=== PATIENT | male | born 1945 | race Caucasian/White ===

== ENCOUNTER 2018-11-22 12:58 | Inpatient (IN) ==
[2018-11-22] MEDS ORDERED: NS 1,000 ML IV ONE (13:37)
--- NOTE | 2018-11-22 13:51 | PROVIDER DOCUMENTATION ---
HPI-General Adult - General Chief Complaint: General Adult Stated Complaint: DR AGUILAR REF TO BE ADMITTED THRU ER Time Seen by Provider: 11/22/18 13:26 Source: patient Allergies/Adverse Reactions: Patient Allergies Allergy/AdvReac Type Severity Reaction Status Date / Time No Known Allergies Allergy Verified 02/10/13 23:54 Home Medications: Home Medication List Medication Instructions Recorded Confirmed Last Taken Type Tramadol [Ultram] 50 mg PO BID PRN 02/10/13 02/10/13 02/10/13 History Amoxicillin 500 mg PO BID 11/22/18 11/22/18 Unknown History Clarithromycin [Biaxin Xl] 500 mg PO BID 11/22/18 11/22/18 Unknown History Hydrocodone/APAP 7.5 mg/325 mg 1 ea PO Q6H PRN PRN 11/22/18 11/22/18 Unknown History [[place]-7.5] Lansoprazole 30 mg PO BID 11/22/18 11/22/18 Unknown History Nicotine Patch [Nicoderm Patch] 21 mg TD DIRECTED 11/22/18 11/22/18 Unknown History Promethazine [Phenergan] 25 mg PO Q6H PRN PRN 11/22/18 11/22/18 Unknown History - History of Present Illness -Gen Adult Nature of Presenting Problems: Patient is a 73yo M who presents to the ED after being referred from Dr. Aguilar's office. Per Dr. Aguilar, patient has Diffuse Lymphoma and is in ARF, dehydrated, dizzy, and hypotensive. Per patient, he reports he has been dizzy for 1 month, however it has gotten worse the past few days. Patient reports he received 2 units of blood last week. States he had an endoscopy on 11/09/18 and was diagnosed with H. Pylori ulcers and given Amoxicillin, Clarithromycin, and Lansoprazole. Also c/o "black stools" and nausea. Patient reports he was diagnosed with Lymphoma 4 months ago. Denies fever/chills, SOB, or CP. Location of Pain/Injury: reports: none Pain Radiation: reports: no radiation Quality of Pain: reports: none Modifying Factors: improves with: analgesics Associated Symptoms: reports: dizziness, loss of appetite, nausea, weakness. denies: chest pain, cough, fever/chills, shortness of breath Similar Symptoms Previously?: No Recently seen or treated by another doctor?: Yes (Referred from Dr. Aguilar's office) Review of Systems - Adult - REVIEW OF SYSTEMS - ADULT Constitutional: denies: chills, fever Eyes: reports: no symptoms reported Ears, Nose, Mouth & Throat: reports: no symptoms reported Cardiovascular: reports: irregular heart rate. denies: chest pain, palpitations Respiratory: denies: cough, excessive sputum production, pleurisy, shortness of breath, wheezing Gastrointestinal: reports: see HPI, nausea, poor appetite, other ("Black stools") Genitourinary: reports: no symptoms reported Musculoskeletal: reports: no symptoms reported Integumentary: reports: no symptoms reported Neurological: reports: dizziness/vertigo Psychiatric: reports: no symptoms reported Endocrine: reports: no symptoms reported Hematologic/Lymphatic: reports: see HPI, transfusions Allergic/Immunologic: reports: no symptoms reported All Other Systems: Reviewed and Negative Past History - Adult - PAST MEDICAL HISTORY-ADULT Review of Records: reports: Nursing Assessment Review, Medications Reviewed, Social history reviewed & non-contributory. Major Childhood Illnesses: reports: denies history - IMMUNIZATION STATUS Childhood Immunizations: See Nurse Assessment Flu Vaccine: See Nurse Assessment - FAMILY HISTORY Family History: reviewed, not pertinent - SOCIAL HISTORY Smoking: quit less than 1 year Physical Exam-General - PHYSICAL EXAM-ADULT Initial Vital Signs Reviewed: Yes - CONSTITUTIONAL General Appearance: appears well, alert, mild distress - HEAD, EARS, NOSE, MOUTH & THROAT HENMT: normocephalic/atraumatic, moist mucous membranes - NECK Neck: non-tender, full range of motion, supple - RESPIRATORY Respiratory: chest non-tender, lungs clear, normal breath sounds, no pleuratic chest pain, no respiratory distress, no accessory muscle use - CARDIOVASCULAR Cardiovascular: no gallop, no murmur, irregularly irregular - GASTROINTESTINAL (ABDOMEN) Abdominal Exam: normal bowel sounds, non tender, soft - SKIN Integumentary: normal color, normal turgor, warm/dry - NEUROLOGIC Neurologic: grossly normal - PSYCHIATRIC Psych/Mental Status: normal mood/affect, normal thought content, normal thought process, oriented x 3 Progress - PLAN OF CARE/RESULTS Progress/Plan/Lab Results: Vital Signs - 8 hr 11/22/18 13:03 Temperature 96.9 F L Pulse Rate 63 Respiratory Rate 18 Blood Pressure 114/67 O2 Sat by Pulse Oximetry 96 Orders Category Date Time Status Saline Loc NOW Care 11/22/18 13:35 Active CBC WITH ELECTRONIC DIFF [HEME] Stat Lab 11/22/18 13:35 Uncollected COMPREHENSIVE METABOLIC PANEL [CHEM] Stat Lab 11/22/18 13:35 Uncollected PROTIME WITH INR [COAG] Stat Lab 11/22/18 13:36 Uncollected PTT [COAG] Stat Lab 11/22/18 13:36 Uncollected URINALYSIS W/POSS RFLX CULT [URINALYSIS] Stat Lab 11/22/18 13:36 Uncollected 0.9% Sodium Chloride Inj [Ns] 1,000 ml Med 11/22/18 13:37 Active IV 999 mls/hr EKG [EKG] Stat Ther 11/22/18 13:42 Ordered Result Diagrams: 11/22/18 13:50 11/22/18 13:50 - EKG 1 Time of EKG reading by physician:: 14:35 EKG Read and Signed by:: Guillermo Beckwith EKG Interpretation (*Must complete 3 of following elements*): Abnormal Rate: 90 Rhythm: Undetermined rhythm [place]: normal QRS: RBB DE Interval: normal ST Wave: normal - CONSULTS/PCP/HOSPITALIST Notification #1 *Consult/PCP/Hospitalist*: Dr. Evie ESPINOSA ([facility]) Time Discussed: 15:29 Reason/Comments: ARF, Dizziness, Anemia, Dehydration Consult Disposition: Admit Departure - Departure Date of Disposition Decision: 11/22/18 Time of Disposition Decision: 15:29 DIAGNOSIS: Dizziness Acute renal failure Qualifiers: Acute renal failure type: unspecified Qualified Code(s): N17.9 - Acute kidney failure, unspecified Anemia Qualifiers: Anemia type: unspecified type Qualified Code(s): D64.9 - Anemia, unspecified Disposition: ADMITTED INPATIENT 09 Certified Medical Emergency: Emergent Condition: Fair Referrals and Follow-Ups: Kerry Yi [Primary Care Provider] - () Wili Aguilar MD [ACTIVE STAFF PHYSICIAN] - - Critical Care Note This patient required my direct & personal management of CC.: No Attestation - Physician/ KATHY Attestation Patient care was provided by Advanced Practice Provider:: Yes Advanced Practice Provider:: Emelia Durand Advanced Practice Provider documentation review:: The Mid-level provider documentation, treatment plan and medical decision making was reviewed by the physician who agrees with all treatment and medical decision making by the MLP. The physician spent face to face time with patient:: No Advanced Practice Provider documentation review:: Supervising physician onsite and consulted in the evaluation and care of this patient. The physician did not have a face to face encounter with the patient.
[2018-11-22 14:11] LABS: BASO# 0.04 X1000 (0.0-0.2); BASO% 0.5 % (0.0-0.8); EOS# 0.13 X1000 (0.0-0.7); EOS% 1.6 % (0.0-10.0); HEMATOCRIT 32.2 % (42.0-52.0); HEMOGLOBIN 10.5 g/dL (14.0-18.0); LYMPH# 2.87 X1000 (1.2-3.4); LYMPH% 35.7 % (20.5-51.1); MCHC 32.6 g/dL (33-37); MCV 85.9 FL (81-99); MONO# 0.54 X1000 (0.11-0.59); MONO% 6.7 % (1.7-9.3); MPV 11.9 FL (7.4-10.4); NEUT# 4.47 X1000 (1.4-6.5); NEUT% 55.5 % (42.2-75.2); PLT 123 X1000 (130-400); RBC 3.75 XMIL (4.7-6.1); RDW 16.5 % (11.5-14.5); WBC 8.05 X1000 (4.8-10.8)
[2018-11-22 14:15] LABS: PTT 29.7 Seconds (22.3-41.8)
[2018-11-22 14:45] LABS: ALB/GLOB RATIO 1.1; ALBUMIN 3.4 g/dL (3.5-5.0); CREATININE 3.5 mg/dL (0.7-1.2); POTASSIUM 3.7 mmol/L (3.5-5.1); TOTAL BILIRUBIN 0.6 mg/dL (0.20-1.00); TOTAL PROTEIN 6.4 g/dL (6.3-8.3)
--- NOTE | 2018-11-22 15:20 | EKG Report ---
Test Performed on : 11/22/2018 2:30:00 PM Test Reason : shortness of breath Blood Pressure : / mmHG Vent. Rate : 090 BPM Atrial Rate : 014 BPM P-R Int : 000 ms QRS Dur : 148 ms QT Int : 458 ms P-R-T Axes : 071 004 003 degrees QTc Int : 560 ms Undetermined rhythm Right bundle branch block Abnormal ECG No previous ECGs available Unconfirmed Result
--- NOTE | 2018-11-22 16:40 | HISTORY AND PHYSICAL ---
HISTORY OF PRESENT ILLNESS: Apparently, recently diagnosed with lymphoma involving his stomach. He has been told he had a stomach ulcer and stomach bleeding. He reported the last month he has had 4 units of blood. They did an EGD not too long ago and by his report it looked pretty bad, but he did know the extent of it. I saw where he had some medicine. They were treating him for H. pylori with triple therapy. But his complaint is that he has had dizziness and weakness and he feels like his blood count has probably dropped once again. His hematocrit is 32, hemoglobin is 10, so we will continue to follow that, but he does look pale. PAST MEDICAL HISTORY: He says that he probably has hypercholesterolemia and he may have diabetes or sugar issues too, he was not real sure, and recently diagnosed with lymphoma. PAST SURGICAL HISTORY: He has had an appendectomy. He has had a partial tongue resection on the left side. He has had cataracts removed, both eyes, and left eye retinal detachment. ALLERGIES: He has no known drug allergies. FAMILY HISTORY: Both of his parents late age. He does not know of any cardiac or renal issues. SOCIAL HISTORY: He is trying to quit smoking now, but he smoked for 75 years. He could not have smoked for 75 years but that is what he told me and he is 73 years old, but he smoked 50 years at least. He states no alcohol and no illicit drugs. REVIEW OF SYSTEMS: General: No weight gain or loss that he is aware of, although he says he is not eating as much and he thinks he probably has lost weight. No fever or chills, just generalized weakness and at times feels like presyncope, like he is going to pass out. HEENT: No change in vision or hearing acuity. No neck pain. We cannot appreciate any new adenopathy, cervical or supraclavicular, axillary. Respiratory: No upper respiratory complaints. No shortness of breath or dyspnea or pleuritic pain or productive cough. Cardiovascular: No chest pain or tachy palpitation. GI/: No gross hematuria or dysuria, but he has had dark stools consistent with melena and epigastric pain has been fairly constant for this last month. PHYSICAL EXAMINATION: VITAL SIGNS: Temp 96.9 degrees, pulse 60, respirations 18, blood pressure 114/67. Weight 182 pounds. HEENT: Pupils are equal and round. LUNGS: Clear in all lung faria. CARDIOVASCULAR: Regular rhythm and rate without murmur or S3. PMI nondisplaced. ABDOMEN: Soft, nondistended, nontender. EXTREMITIES: No pedal edema. LAB: White count 8,050, hemoglobin is 10, hematocrit 32, platelet count a 123,000. Sodium 138, potassium 3.7, chloride 100, BUN 77, creatinine 3.5, albumin 3.4. ProTime is 14, PTT is 29. MEDICATIONS: Review of his home medications. He is on amoxicillin 500 mg b.i.d., Biaxin XL 500 mg b.i.d., and he is on lansoprazole 30 mg b.i.d. He is taking a nicotine patch 21 mg I think a day. He is on Ultram 50 mg b.i.d. for pain and also [place] 7.5. ASSESSMENT AND PLAN: 1. Generalized weakness and dizziness. He does have anemia, but it is not real profound. He may be a little intravascularly volume depleted. We will give him some normal saline. Will run it in at 85 mL an hour. His electrolytes are fairly unremarkable except for creatinine of 3.5. I am not sure what his baseline is and this may be an acute kidney injury on top of chronic kidney injury, so we will follow his creatinine and his electrolytes. We will check his magnesium. We will check his thyroid with T4, TSH, B12, folate, and check an a.m. cortisol as well. 2. Lymphoma, primary I believe involving the stomach. I do not think he has started therapy, but they are discussing therapy with Dr. Goodson. 3. It looks like they are treating him for Helicobacter pylori. Had a recent EGD. Assuming they found lymphoma and ulcer, so we will continue his amoxicillin, Biaxin, and lansoprazole. These can be pretty hard on the stomach and give you a good amount of nausea, so this may be some of his symptoms. 4. Abdominal pain. We will let him continue using the tramadol and the hydrocodone as needed. Consult Dr. Goodson. cc: Bryson Case MD
[2018-11-22] MEDS ORDERED: PHENERGAN PO PRN (18:12)
[2018-11-22] MEDS ORDERED: TYLENOL PO PRN (18:12)
[2018-11-22] MEDS: NS 1,000 ML IV SCH (18:58)
[2018-11-22 20:50] LABS: HEMATOCRIT 28.3 % (42.0-52.0)
[2018-11-22] MEDS: AMOXIL PO SCH (23:19)
[2018-11-22] MEDS: PATIENT'S OWN MED PO SCH ×2 (23:20)
[2018-11-23 02:21] LABS: HEMOGLOBIN 8.7 g/dL (14.0-18.0)
[2018-11-23 02:53] LABS: URINE SOURCE CLEAN CATCH
[2018-11-23 03:17] LABS: BILIRUBIN URINE NEGATIVE (NEGATIVE); BLOOD URINE LARGE (NEGATIVE); COLOR YELLOW; GLUCOSE URINE NEGATIVE (NEGATIVE); KETONE URINE NEGATIVE (NEGATIVE); LEUKOCYTES URINE NEGATIVE (NEGATIVE); NITRITE URINE NEGATIVE (NEGATIVE); PROTEIN URINE 30 mg/dL (NEGATIVE); SP GRAVITY URINE 1.016; TURBIDITY URINE CLEAR (CLEAR); UROBILINOGEN URINE NORMAL (NORMAL)
[2018-11-23 03:18] LABS: UR EPITHELIAL CELLS <10 /HPF (<10); URINE BACTERIA NEGATIVE /HPF; URINE RBC 20-40 /HPF (<10); URINE WBC <10 /HPF (<10)
[2018-11-23 06:14] LABS: BASO# 0.04 X1000 (0.0-0.2); BASO% 0.6 % (0.0-0.8); EOS# 0.14 X1000 (0.0-0.7); EOS% 2.2 % (0.0-10.0); HEMATOCRIT 28.4 % (42.0-52.0); HEMOGLOBIN 8.8 g/dL (14.0-18.0); IMM GRAN# 0.02 X1000 (0.0-0.04); IMM GRAN% 0.3 % (0.0-0.5); LYMPH# 2.31 X1000 (1.2-3.4); LYMPH% 36.5 % (20.5-51.1); MCH 27.1 PG (27-31); MCV 87.4 FL (81-99); MONO# 0.43 X1000 (0.11-0.59); MONO% 6.8 % (1.7-9.3); NEUT# 3.39 X1000 (1.4-6.5); NEUT% 53.6 % (42.2-75.2); PLT 107 X1000 (130-400); RBC 3.25 XMIL (4.7-6.1); RDW 16.4 % (11.5-14.5); WBC 6.33 X1000 (4.8-10.8)
[2018-11-23 06:46] LABS: ALB/GLOB RATIO 1.1; ALBUMIN 2.7 g/dL (3.5-5.0); CALCIUM 7.4 mg/dL (8.8-10.2); MAGNESIUM 1.8 mg/dL (1.5-2.7); POTASSIUM 3.5 mmol/L (3.5-5.1); TOTAL BILIRUBIN 0.45 mg/dL (0.20-1.00); TOTAL PROTEIN 5.2 g/dL (6.3-8.3)
--- NOTE | 2018-11-23 07:56 | EKG Report ---
Test Performed on : 11/23/2018 06:54:54 AM Test Reason : chest pain Blood Pressure : / mmHG Vent. Rate : 092 BPM Atrial Rate : 070 BPM P-R Int : 112 ms QRS Dur : 142 ms QT Int : 446 ms P-R-T Axes : 000 107 -70 degrees QTc Int : 551 ms Sinus rhythm. with premature supraventricular complexes. and with frequent and consecutive premature ventricular complexes. with junctional escape complexes. with ventricular escape complexes. Rightward axis Nonspecific intraventricular block Marked T wave abnormality, consider inferolateral ischemia Abnormal ECG When compared with ECG of 22-NOV-2018 14:30, (Unconfirmed) Previous ECG has undetermined rhythm, needs review Nonspecific intraventricular block has replaced Right bundle branch block Unconfirmed Result
[2018-11-23] MEDS: NICODERM PATCH TD SCH (08:36)
[2018-11-23] MEDS: AMOXIL PO SCH ×2 (08:36→21:12)
[2018-11-23] MEDS: PATIENT'S OWN MED PO SCH ×3 (08:37→21:13)
--- NOTE | 2018-11-23 08:57 | EKG Report ---
Test Performed on : 11/23/2018 08:42:28 AM Test Reason : ? bigeminy Blood Pressure : / mmHG Vent. Rate : 087 BPM Atrial Rate : 066 BPM P-R Int : 000 ms QRS Dur : 130 ms QT Int : 422 ms P-R-T Axes : 000 012 037 degrees QTc Int : 507 ms Atrial fibrillation. with premature ventricular or aberrantly conducted complexes. Right bundle branch block Septal infarct , age undetermined Abnormal ECG When compared with ECG of 23-NOV-2018 06:54, (Unconfirmed) Atrial fibrillation. has replaced Sinus rhythm. Right bundle branch block has replaced Nonspecific intraventricular block Septal infarct is now present Unconfirmed Result
[2018-11-23] MEDS ORDERED: INJECTAFER 750 MG in NS 250 ML IV ONE (09:30)
--- NOTE | 2018-11-23 10:00 | HEMO/ONC CONSULTATION ---
DATE: 11/23/2018 REASON FOR CONSULTATION: We have been consulted for further management of patient's lymphoma. HISTORY OF PRESENT ILLNESS: Mr. Beckwith presented to the office yesterday for further evaluation. While in the clinic, he seemed to be hypotensive, very dizzy, falling a lot. The patient also had recently been treated for H pylori after having HD and ulcers. The patient denies any fevers or chills, chest pain, shortness of breath. The patient was admitted from the ER for further evaluation and management. Patient known to us in clinic where he has been following up his lymphoma. Patient recently had a PET scan that showed diffuse lymphadenopathy at this time. Patient also appears to be in renal failure and very dehydrated and they sent to the hospital yesterday to be admitted for further evaluation to hope to start treatment next week while he is in the hospital. PAST MEDICAL HISTORY: Hypercholesterolemia, diabetes, lymphoma. PAST SURGICAL HISTORY: Appendectomy, partial tongue resection, cataracts and left eye retinal attachment. SOCIAL HISTORY: Smokes for the past 50 years. Denies any alcohol or illicit drug use. ALLERGIES: No known drug allergies. HOME MEDICATIONS: 1. Amoxicillin. 2. Biaxin. 3. [place] 7.5 4. NicoDerm patch. 5. Phenergan. 6. Tramadol. REVIEW OF SYSTEMS: Negative unless is mentioned in the HPI. PHYSICAL EXAMINATION: Vital Signs: Temperature 98.1 degrees, heart rate 75, respiratory rate 16, blood pressure 126/57, saturation 95% on room air. General: Patient is awake, lying in bed, no acute distress noted. HEENT: Anicteric. Pupils PERRLA. Mucous membranes dry. Neck: Supple. Trachea midline. Cardiovascular: S1, S2. Regular rate and rhythm. Respiratory: Bilateral breath sounds. Clear to auscultation. Abdomen: Soft, epigastric tenderness, nondistended. Bowel sounds present all 4 quadrants. No hepatosplenomegaly noted. Skin: Warm, dry and intact. Neurologic: Alert and oriented x3. No focal deficits noted. LABORATORY DATA: White blood cell count 6.33, hemoglobin 8.8, hematocrit 28.4, platelets are 107. Potassium 3.5, BUN 68, creatinine 3.0. ASSESSMENT AND PLAN: 1. Lymphoma: The patient hoping to start treatment next week. We are working on getting him more hydrated, improve his kidney function and have him prepared for treatment. If he is strong enough while he is in the hospital, we will get that treatment started. 2. Generalized weakness and dizziness: Continue rehydration. The patient to continue exercise as instructed as well. We will continue to monitor closely. 3. The Helicobacter pylori. Continue recommendations by Primary Medical Team. 4. Acute kidney injury: Continue rehydration per Primary Medical Team. 5. Supportive care: Patient will continue protein shakes q.i.d. The patient is strongly encouraged out of bed as much as possible. The patient will work on exercises as instructed. Dictated by FRANCISCA Freeman for Wili Luna MD Patient seen and examined. Patient admitted with presyncopal episode, falls, renal failure and dizziness. Recently he had presented to [facility] with GI bleeding. He received PRBCs. EGD was performed which revealed stomach involvement with diffuse cancer. Biopsy revealed non-Hodgkins lymphoma. He had a PET scan which revealed diffuse lymphadenopathy. Continue current management with fluids to resolve this renal failure and presyncope. His uric acid was 11.6 in the clinic. Start him on allopurinol for tumor lysis prophylaxis. He will require chemotherapy sometime soon. Wili Luna M.D. cc: FRANCISCA Freeman MD [facility]
--- NOTE | 2018-11-23 13:08 | GASTROENTEROLOGY CONSULTATION ---
DATE: 11/23/2018 REASON FOR CONSULTATION: Anemia. Questionable gastrointestinal bleeding. HISTORY OF PRESENT ILLNESS: This is a 73-year-old, male who was recently diagnosed with lymphoma of the stomach. Patient reports onset of symptoms over the last 1 to 2 months. He states he had initially gotten a letter from his insurance stating he needed to have a physical. He followed with Dr. Yi, his primary physician, and had workup and was instructed to follow with Dr. Guy for some abnormal findings. Patient reports having an EGD with findings of an ulcer and a tumor. He was diagnosed with gastric lymphoma and had followed with Dr. Luna to set up course of treatment. The patient has not been started on treatment yet. He came into Dr. Luna's office yesterday for evaluation and he was hypotensive and dizzy and had fell. They sent him to the emergency room for further evaluation and management. Per Dr. Luna's note, he had a recent PET scan that showed diffuse lymphoma. Patient had noticed some diarrhea black in color, about once a day. This has been going on for several weeks. Again, he had an EGD by Dr. Erickson in [place]. He is not sure when his last colonoscopy was. Patient reports some episodes of nausea and vomiting. He has had some weakness and dizziness. No reported chest pain. No reported fever. He reports shortness of breath with exertion. He states he was diagnosed with H. pylori bacteria and was started on antibiotics. He states he had not taken Pepto-Bismol as part of the course treatment. PAST MEDICAL HISTORY: Hypercholesterolemia, diabetes, recent diagnosis of lymphoma. PAST SURGICAL HISTORY: Appendectomy, partial tongue resection. Cataract. Left eye retinal detachment. ALLERGIES: No known drug allergies. HOME MEDICATIONS: 1. H-pylori treatment, amoxicillin 500 mg twice a day. 2. Biaxin 500 mg twice. 3. Lansoprazole 30 mg twice a day. 4. Phenergan 25 mg every 6 hours as needed. 5. Ultram 50 mg twice a day as needed. 6. [place] 7.5 every 6 hours as needed. SOCIAL HISTORY: Positive for tobacco use. He states he is trying to quit. No reported alcohol use. REVIEW OF SYSTEMS: Per history of present illness. PHYSICAL EXAMINATION: Vital Signs: Temperature 98 degrees, pulse 71, respirations 16, blood pressure 115/42. General: Patient is awake, alert, no acute distress. HEENT: Normocephalic, atraumatic. Pupils equal, round, reactive to light. Sclerae nonicteric. Cardiovascular: Regular rate and rhythm. Respiratory: Lung sounds essentially clear. Abdomen: Soft, nontender. Positive bowel sounds. Extremities: No lower extremity edema noted. Neurological: Cranial nerves II through XII grossly intact. Patient is awake, alert, oriented to person, place, and time. DIAGNOSTIC RESULTS: Laboratory: Hematology: WBC 6.33, hemoglobin 8.8, hematocrit 28.4, MCV 87.4, platelet 107,000. Coagulation: Protime 14.0, INR 1.0. PTT 29.7. Chemistry: Sodium 138, potassium 3.5, chloride 101, CO2 17, BUN 68, creatinine 3.0, glucose 81, calcium 7.4. Total bilirubin 0.45, AST 19, ALT 6, alkaline phosphatase 67. ASSESSMENT: 1. Recent diagnosis of lymphoma. Dr. Luna is following. They plan to start treatment as soon as he is stable enough. 2. Weakness, dizziness, dehydration. Continue IV fluid resuscitation, 3. Recent diagnosis of Helicobacter pylori by EGD by Dr. Erickson in [place]. Patient is on outpatient antibiotic regimen. Continue current antibiotics and finished the course. 4. Acute kidney injury. Most likely related to dehydration. Continued IV fluids. PLAN: Continue PPI. Will monitor hemoglobin and hematocrit and monitor for any active signs of bleeding. Continue H. pylori treatment and complete. We will continue to follow during his hospital course. Follow recommendations of Dr. Luna on lymphoma treatment. GI will be following. If he has active bleeding, or hemoglobin and hematocrit drops he may need EGD evaluation but for now, we will continue medical management. Patient was also seen by Dr. Hodge. Thank you for this consultation. Dictated by FRANCISCA Torres for Spencer Hodge MD cc: FRANCISCA Mckeon MD [facility]
--- NOTE | 2018-11-23 13:32 | PROGRESS NOTE ---
DATE: 11/23/2018 SUBJECTIVE: Mr. Beckwith is feeling better and he is tolerating liquids and getting liquids down. His tummy does not hurt as bad. He did get some rest last night. OBJECTIVE: Vital signs: Temperature 98 degrees, pulse 70, respirations 16, blood pressure 115/42, pupils are equal and round. Lungs: Clear in all lung faria. Cardiovascular: Regular rhythm and rate without murmur or S3. Abdomen: Soft. Skin: Warm and dry. LABORATORY DATA: Reviewed from yesterday. White count 6330, hematocrit is 28, hemoglobin 8, a little drop from yesterday, probably volume related. Platelet count is a 107,000. Sodium 138, potassium 3.5, chloride 104, BUN 68, creatinine is 3.0, which has come down from 3.5 yesterday. Stool samples are positive for blood. ASSESSMENT AND PLAN: 1. Lymphoma, mainly involving the stomach. Hoping to start treatment next week. Working on getting him hydrated, improve his kidney function and help with his dyspepsia and anorexia. 2. General weakness, dizziness. Continue rehydration. 3. Acute kidney injury secondary to volume depletion. Appears to be improving. Continue present volume. 4. Helicobacter pylori gastritis. Continue his present regimen of antibiotic triple-regimen. 5. Acute kidney injury. As mentioned above, I think that is all prerenal. He does feel better. REVIEW OF HIS ORDERS: He is on liquid diet. He did get an iron transfusion, ferric carboxymaltose dose, he got 750 mg IV. On a nicotine patch 21 mg daily. Getting normal saline at 75 mL an hour. He needs to be on a proton pump inhibitor as well, so I will put him on Protonix 40 mg twice a day IV for now. cc: Bryson Case MD
--- NOTE | 2018-11-23 14:14 | Diag Imaging Result Doc PS360 ---
EXAM: US RENAL 2 (RETROPER) COMPLETE 11/23/2018 HISTORY: DAVID ?CKD TECHNIQUE: Renal ultrasound COMMENT: There is ascites. There is no evidence of hydronephrosis. The kidneys are slightly hyperechoic. There is some fluid in the urinary bladder but it is not distended. The right kidney is 10.5 x 4.7 x 4 5.1 cm, the left is 11.4 x 5 x 5.3 cm. There are no masses. IMPRESSION: Ascites. Medical renal disease. No evidence of obstructive uropathy. Electronically signed by Sukumar Alvarez 11/23/2018 2:12 PM
[2018-11-23] MEDS: CARAFATE LIQUID PO SCH (14:18)
[2018-11-23] MEDS: PROTONIX IV SCH (14:18)
[2018-11-23] MEDS: SODIUM CHLORIDE 0.9% INJ SCH (14:19)
--- NOTE | 2018-11-23 15:47 | ECHO REPORT ---
ORDER DATE: 11/22/2018 ECHOCARDIOGRAPHIC MEASUREMENTS: 1. Interventricular septum 0.9. 2. Left ventricular posterior wall 0.9. 3. Diastolic diameter 5.4. 4. Left atrium 4.6. 5. Aorta 2.8. SUMMARY: 1. Normal left ventricular cavity size. Estimated ejection fraction of 65%. There is diastolic dysfunction. 2. Aortic valve leaflets were trileaflet. 3. Pulmonic valve was normal. 4. Mitral valve leaflets were normal. There is moderate mitral regurgitation. 5. Moderate tricuspid regurgitation. Peak velocity across the tricuspid valve was 3.3 m/sec. 6. Pulmonary artery systolic pressure of 55 mmHg. 7. Mild pulmonary regurgitation. 8. There is no aortic stenosis or regurgitation. 9. Frequent premature ventricular beats were noted. 10. There is no pericardial effusion or obvious intracardiac mass or thrombus seen. cc: Rigoberto Bedolla MD
[2018-11-23] MEDS: NS 1,000 ML IV SCH ×2 (18:27→21:10)
[2018-11-23] MEDS: NORCO-7.5 PO PRN (21:19)
[2018-11-24] MEDS: NORCO-7.5 PO PRN (02:21)
[2018-11-24] MEDS ORDERED: KLOR-CON PO ONE (04:52)
[2018-11-24] MEDS: CARAFATE LIQUID PO SCH ×4 (06:11→23:03)
[2018-11-24] MEDS: PROTONIX IV SCH ×2 (06:12→17:26)
[2018-11-24] MEDS: AMOXIL PO SCH ×2 (09:23→23:03)
[2018-11-24] MEDS: NICODERM PATCH TD SCH (09:24)
[2018-11-24] MEDS: PATIENT'S OWN MED PO SCH ×2 (09:25→23:03)
--- NOTE | 2018-11-24 10:51 | PROGRESS NOTE ---
DATE: 11/24/2018 SUBJECTIVE: Mr. Beckwith says his abdominal pain is a little better, but he really cannot tolerate solid food, so I will see if we can put him on Ensure or protein supplement. OBJECTIVE: Vital Signs: Temperature 98.3 degrees, pulse 86, respirations 20, blood pressure 131/72. Eyes: Pupils are equal and round. Lungs: Clear in all lung faria. Cardiovascular exam: Regular rhythm and rate without murmur or S3. Abdomen: Diffusely uncomfortable. Extremities: No pedal edema. : Urine output 1200 mL. ASSESSMENT AND PLAN: 1. Recent diagnosis of lymphoma. Dr. Luna is following. Start treatment as soon as he is stable enough. 2. Being treated and diagnosed with Helicobacter pylori after an esophagogastroduodenoscopy done by Dr. Guy in [place], so patient can continue his present regimen. He is taking amoxicillin twice a day and clarithromycin twice a day. He is on Protonix 40 mg intravenous every 12 hours. 3. Weakness dizziness, dehydration. Continue intravenous fluids. 4. Acute kidney injury. LABORATORY DATA: On review of his lab today: Hematocrit is stable at 28, hemoglobin 8.8, white count 6330, platelet count 107,000. Creatinine has come down to 3.0. We will check electrolytes again in the morning. Transaminases are normal. Albumin is 2.7. Cortisol level was normal at 18.6. TSH was 2.91. cc: Bryson Case MD
[2018-11-24] MEDS: ZYLOPRIM PO SCH (12:27)
--- NOTE | 2018-11-24 13:35 | GASTROENTEROLOGY PROGRESS NOTE ---
DATE: 11/24/2018 Mr. Beckwith is resting comfortably. He denies any abdominal pain now he tells me he feels better than when he came in. He had some abdominal discomfort after he had eaten. He tells me is unable to eat adequately. Otherwise he has not had any nausea, vomiting. He denied any hematemesis or coffee-ground emesis. He has not had any melena.Vitals: Temperature 98.3 degrees, pulse is 86, breathing at 20, blood pressure 131/72. Abdomen slightly distended but soft, nontender. Bowel sounds are audible. LABORATORIES: Reviewed which showed WBC 6.33, hemoglobin was 8.8 yesterday and hematocrit was 28.4 yesterday. We do not have any labs except for potassium that was 3.4 today. CBC was not done today. IMPRESSION: Anemia, most likely gastrointestinal bleed from his ulcer and lymphoma diagnosed recently by Dr. Erickson at [place]. He is not actively bleeding with no visible signs of active bleeding now. I would continue his current treatment and observe, recheck hemoglobin and hematocrit, transfuse if necessary. He is scheduled to have a CBC drawn after the blood transfusion. He will endoscopic intervention only for therapeutic purposes if he shows signs of acute bleed or hemorrhaging out. Otherwise continue PPI and continue treatment. Will follow along with you while he is hospitalized. cc: Spencer Hodge MD
--- NOTE | 2018-11-24 14:19 | HEMO/ONC PROGRESS NOTE ---
DATE: 11/24/2018 SUBJECTIVE: Patient continues to have increased amounts of abdominal pain. The patient is unable to tolerate soft foods at this time. The patient has some weakness and dizziness as well. The patient denies any other complaints. OBJECTIVE: Vital Signs: Temperature 98.3 degrees, heart rate 86, respiratory rate 20, blood pressure 131/62, satting 95% on room air. General: Patient is awake, lying in bed, no acute distress noted. HEENT: Anicteric. Pupils PERRLA. Mucous membranes moist. Cardiovascular: S1, S2. Regular rate and rhythm. Lungs: Bilateral breath sounds. Clear to auscultation. Abdomen: Soft, slightly tender. Bowel sounds present in all 4 quadrants. Neurologic: Alert and oriented x3. No focal deficits noted. ASSESSMENT AND PLAN: 1. Non-Hodgkin's lymphoma: Patient hopefully to start treatment later this coming up week while he is in the hospital. We will start him on allopurinol for tumor lysis prophylaxis. Continue to monitor closely, hopefully the patient will get strong enough to start treatment soon. 2. Generalized weakness and dizziness: Continue rehydration. The patient will continue intravenous fluids while in the hospital. We will consult physical therapy. The patient will continue to monitor closely. 3. Helicobacter pylori: Continue recommendations by primary medical team. 4. Acute kidney injury: Continue rehydration. 5. Supportive care: Patient to continue pressure checks four times daily. The patient will continue exercises. Patient will have physical therapy. Plan of care discussed with Dr. Luna. Dictated by FRANCISCA Freeman for Wili Luna MD As above. May have to treat him inpatient. Complicated. High risk for turmor lysis syndrome. cc: FRANCISCA Freeman MD MTDD
[2018-11-24] MEDS: SODIUM CHLORIDE 0.9% INJ SCH (17:26)
[2018-11-24] MEDS: NS 1,000 ML IV SCH (17:38)
[2018-11-25] MEDS: NS 1,000 ML IV SCH ×3 (01:22→18:40)
[2018-11-25 06:32] LABS: ALB/GLOB RATIO 0.9; ALBUMIN 2.7 g/dL (3.5-5.0); CALCIUM 7.6 mg/dL (8.8-10.2); CREATININE 2.3 mg/dL (0.7-1.2); MAGNESIUM 1.8 mg/dL (1.5-2.7); POTASSIUM 4.3 mmol/L (3.5-5.1); TOTAL BILIRUBIN 0.44 mg/dL (0.20-1.00); TOTAL PROTEIN 5.6 g/dL (6.3-8.3)
[2018-11-25] MEDS: PROTONIX IV SCH ×2 (06:34→17:11)
[2018-11-25] MEDS: SODIUM CHLORIDE 0.9% INJ SCH ×2 (06:34→17:11)
[2018-11-25] MEDS: CARAFATE LIQUID PO SCH ×4 (06:34→22:06)
[2018-11-25] MEDS: PATIENT'S OWN MED PO SCH ×2 (09:46→22:06)
[2018-11-25] MEDS: AMOXIL PO SCH ×2 (09:46→22:06)
[2018-11-25] MEDS: ZYLOPRIM PO SCH (09:46)
[2018-11-25] MEDS: NICODERM PATCH TD SCH (09:46)
[2018-11-25 10:54] LABS: URIC ACID 11.8 mg/dL (3.4-7.0)
--- NOTE | 2018-11-25 11:02 | PROGRESS NOTE ---
DATE: 11/25/2018 SUBJECTIVE: Mr. Beckwith feels a little better. His stomach is doing a little better. Tolerating liquids. PHYSICAL EXAMINATION: Temperature 98.1 degrees, pulse 75, respirations 20, blood pressure 120/52. His lungs are clear in all lung faria. Cardiovascular Examination: Regular rhythm and rate without murmur or S3. Abdomen is soft. Skin is warm and dry. Urine output is 1300 mL. LABORATORY DATA: Lab reviewed. Hematocrit is stable. Hemoglobin at 8.8. Electrolytes: Sodium 139, potassium 4.3, chloride 109, BUN 43, creatinine 2.3 which is coming down. His creatinine on presentation was 3.5. ASSESSMENT AND PLAN: 1. Recent diagnosis of lymphoma, followed by Dr. Luna. 2. Treating diagnosis of Helicobacter pylori with esophagogastroduodenoscopy done by Dr. Guy in [place]. Continue present regimen. He is on amoxicillin with clarithromycin. He is getting Protonix 40 mg intravenous every 12 hours. 3. Weakness, dizziness, dehydration, improved. 4. Acute kidney injury, which is improving as well with hydration. 5. Review of his orders. I do not see any change at this point. Fluids are going with normal saline at 75 mL an hour. cc: Bryson Case MD
--- NOTE | 2018-11-25 12:42 | HEMO/ONC PROGRESS NOTE ---
DATE: 11/25/2018 SUBJECTIVE: Patient reports that he continues to feel weak. He has not been out of bed much. He looks better. He denies any blood per rectum or melena. He continues to complain of abdominal pain. PHYSICAL EXAMINATION: Vital signs: Temperature 98.1 degrees, pulse 75, blood pressure 120/52. HEENT: Eyes: EOMI. PERRLA. Anicteric. Pallor is present. Mucous membranes appear moist. Cardiac: Regular rate and rhythm. Normal S1, S2. Chest: Clear to auscultation. Abdomen: Protuberant. Epigastric tenderness is noted. No hepatomegaly. Extremities: No cyanosis, clubbing, or edema. Neurological: Alert and oriented x3. No focal motor deficits. LABORATORY DATA: BUN 43, creatinine 2.3, albumin 2.7. ASSESSMENT AND PLAN: 1. Non-Hodgkin's lymphoma, severe gastric involvement, and diffuse lymphadenopathy. Patient's creatinine is improving. Check LDH and uric acid today. I will plan to give him chemotherapy during his hospitalization. He is at high risk for tumor lysis and in the setting of his renal failure, he will be difficult to manage outpatient. 2. Tumor lysis prophylaxis: He is on allopurinol, which is dosed for renal insufficiency. 3. Anemia: He is receiving IV iron. Continue to transfuse as needed. This is due to recent GI bleeding. This is also due to his lymphoma. 4. Acute kidney injury: Continue hydration. Creatinine is slowly trending down. Once it reaches a stable state, plan for chemotherapy. 5. Nutrition. He is not taking much in the way of p.o. intake due to his gastric lymphoma. Continue protein shakes. cc: Wili Luna MD [facility]
--- NOTE | 2018-11-25 14:16 | GASTROENTEROLOGY PROGRESS NOTE ---
DATE: 11/25/2018 SUBJECTIVE: Patient is sitting up in a chair in no acute distress. He has a visitor at the bedside. He denies any visible rectal bleeding or melena. OBJECTIVE: Vital Signs: Temperature 99 degrees, pulse 78, respirations 20, blood pressure 115/68. General: Patient is awake, alert, no acute distress. LABORATORY: Hematology. WBC 6.33, hemoglobin 8.8, hematocrit 28.4, MCV 87.4. Chemistry. Sodium 139, potassium 4.3, chloride 109, CO2 14, BUN 43, creatinine 2.3, glucose 115. ASSESSMENT AND PLAN: 1. Non-Hodgkin lymphoma with gastric involvement and adenopathy following with Dr. Luna. I believe they plan to start his chemo while he is in the hospital. 2. Anemia. No further active bleeding. Recheck CBC in the morning. Will continue to follow. Further plans to be made according to his progress. I have discussed this case with Dr. Hodge. Dictated by FRANCISCA Torres for Spencer Hodge MD cc: FRANCISCA Mckeon MD
[2018-11-25] MEDS: NORCO-7.5 PO PRN (22:05)
[2018-11-26] MEDS: NS 1,000 ML IV SCH ×3 (02:53→18:28)
[2018-11-26] MEDS: SODIUM CHLORIDE 0.9% INJ SCH ×2 (05:22→18:25)
[2018-11-26] MEDS: CARAFATE LIQUID PO SCH ×4 (05:23→22:43)
[2018-11-26] MEDS: PROTONIX IV SCH ×2 (05:23→18:25)
[2018-11-26 06:34] LABS: BASO# 0.02 X1000 (0.0-0.2); BASO% 0.4 % (0.0-0.8); EOS# 0.11 X1000 (0.0-0.7); HEMATOCRIT 28.4 % (42.0-52.0); HEMOGLOBIN 8.7 g/dL (14.0-18.0); IMM GRAN# 0.02 X1000 (0.0-0.04); IMM GRAN% 0.4 % (0.0-0.5); LYMPH# 1.76 X1000 (1.2-3.4); LYMPH% 31.9 % (20.5-51.1); MCH 26.9 PG (27-31); MCHC 30.6 g/dL (33-37); MCV 87.9 FL (81-99); MONO% 9.1 % (1.7-9.3); MPV 11.6 FL (7.4-10.4); NEUT% 56.2 % (42.2-75.2); PLT 118 X1000 (130-400); RBC 3.23 XMIL (4.7-6.1); RDW 16.3 % (11.5-14.5); WBC 5.51 X1000 (4.8-10.8)
--- NOTE | 2018-11-26 08:15 | HEMO/ONC PROGRESS NOTE ---
DATE: 11/26/2018 SUBJECTIVE: The patient continues to be very weak. The patient is not getting out of bed. The patient is not taking in much by mouth. OBJECTIVE: Vital Signs: Temperature 98.2 degrees, heart rate 56, respiratory rate 18, blood pressure 122/56, satting 96% on room air. General: The patient is awake, lying in bed. No acute distress noted. HEENT: Anicteric. Pupils PERRLA. Mucous membranes moist. Cardiovascular: S1, S2. Regular rate and rhythm. Chest: Bilateral breath sounds. Clear to auscultation. Abdomen: Soft. Mild tenderness noted in the epigastric region. Neurologic: Alert and oriented x3. No focal deficits noted. LABORATORY DATA: White blood cell count is 5.51, hemoglobin 8.7, hematocrit 28.4, platelets are 118. ASSESSMENT AND PLAN: 1. Non-Hodgkin's lymphoma, severe gastric involvement and diffusely lymphadenopathy. LDH yesterday was 599, uric acid 11.8. The patient is at high risk for tumor lysis. The patient will continue his allopurinol. Hopefully, going to start his chemotherapy while in the hospital. Continue to monitor very closely at this time. 2. Tumor lysis prophylaxis. Patient to continue allopurinol. Continue fluid rehydration. 3. Anemia. The patient has received intravenous iron. This is caused by his recent gastrointestinal bleeding and his lymphoma. Continue to monitor closely and transfuse as needed. 4. Acute kidney injury. Continue rehydration. Creatinine is slowly continuing to improve. 5. Supportive care. The patient will continue taking his protein shakes 4 times a day. Patient to continue getting out of bed as much as possible. Continue with physical therapy. Dictated by FRANCISAC Freeman for Wili Luna MD Patient seen and examined. Continues to be weak. He has worked with physical therapy today. LDH is significantly elevated. Uric acid is elevated. At high risk for tumor lysis syndrome in light of renal insufficiency. We will have to start his chemotherapy sometime soon. Plan for inpatient chemotherapy with first cycle. Repeat labs tomorrow and reevaluate. Wili Luna M.D. cc: FRANCISCA Freeman MD [facility]
[2018-11-26] MEDS: NICODERM PATCH TD SCH (08:37)
[2018-11-26] MEDS: AMOXIL PO SCH ×2 (08:37→22:43)
[2018-11-26] MEDS: PATIENT'S OWN MED PO SCH ×2 (08:38→22:43)
[2018-11-26] MEDS: ZYLOPRIM PO SCH (08:38)
--- NOTE | 2018-11-26 12:59 | GASTROENTEROLOGY PROGRESS NOTE ---
DATE: 11/26/2018 SUBJECTIVE: Patient was asleep. I did not wake him. OBJECTIVE: Vital Signs: Temperature 98.4 degrees, pulse 59, respirations 18, blood pressure 120/51. LABORATORY: Hematology: WBC 5.51, hemoglobin 8.7, hematocrit 28.4, MCV 87.9, chemistry sodium 139, potassium 4.3, chloride 109, CO2 14, BUN 43, creatinine 2.3, glucose 115. ASSESSMENT AND PLAN: 1. Anemia has been stable. No further evidence of active bleeding. Will continue to monitor hemoglobin and hematocrit. Monitor for any signs of active bleeding. 2. NonHodgkin lymphoma with gastric involvement following with Dr. Luna. Continue recommendations per oncology. We will continue to follow. Further plans to be made according to his progress. I have discussed this case with Dr. Hodge. Dictated by FRANCISCA Torres for Spencer Hodge MD cc: FRANCISCA Mckeon MD
[2018-11-26 15:23] LABS: CALCIUM 7.6 mg/dL (8.8-10.2); POTASSIUM 4.2 mmol/L (3.5-5.1)
--- NOTE | 2018-11-26 16:27 | PROGRESS NOTE ---
DATE: 11/26/2018 SUBJECTIVE: Mr. Beckwith says he is feeling a little better. He is still tolerating liquids, not sure if he can take solid food, but he wants to try soft diet. Nausea has diminished. Abdominal discomfort still there. OBJECTIVE: Vital Signs: Temperature 98 degrees, pulse 62, respirations 22, blood pressure 124/52. HEENT: Pupils are equal. Neck: No distended neck veins. Lungs: Clear in all lung faria. Cardiovascular: Regular rhythm and rate without murmur or S3. LABORATORY STUDIES: Urine output 4200 mL. ASSESSMENT AND PLAN: 1. Anemia which has been stable. No evidence of active bleeding. Continue to monitor hemoglobin, hematocrit. 2. Non-Hodgkin's lymphoma with gastric involvement, followed by Dr. Luna. Continue to hydrate. 3. He is on tumor lysis prophylaxis. Note his non-Hodgkin's lymphoma, severe gastric involvement, diffuse lymphadenopathy. LDH was 599. Uric acid was 11.8 and has high risk factors for tumor lysis. So, continue patient on allopurinol. Going to start chemotherapy while he is in the hospital. 4. Acute kidney injury. This is improved with fluids. Note he received some intravenous iron for his anemia. We will try and give him a soft GI diet and see how he does. cc: Bryson Case MD
[2018-11-26] MEDS: NORCO-7.5 PO PRN (22:48)
[2018-11-27] MEDS: CARAFATE LIQUID PO SCH ×4 (05:35→23:29)
[2018-11-27] MEDS: PROTONIX IV SCH ×2 (05:35→18:56)
[2018-11-27] MEDS: SODIUM CHLORIDE 0.9% INJ SCH (05:36)
[2018-11-27 06:16] LABS: BASO# 0.03 X1000 (0.0-0.2); BASO% 0.5 % (0.0-0.8); EOS% 1.8 % (0.0-10.0); HEMATOCRIT 28.5 % (42.0-52.0); HEMOGLOBIN 8.7 g/dL (14.0-18.0); IMM GRAN# 0.02 X1000 (0.0-0.04); IMM GRAN% 0.4 % (0.0-0.5); LYMPH# 1.81 X1000 (1.2-3.4); LYMPH% 32.8 % (20.5-51.1); MCH 26.7 PG (27-31); MCHC 30.5 g/dL (33-37); MCV 87.4 FL (81-99); MONO# 0.35 X1000 (0.11-0.59); MONO% 6.3 % (1.7-9.3); MPV 11.2 FL (7.4-10.4); NEUT# 3.21 X1000 (1.4-6.5); NEUT% 58.2 % (42.2-75.2); PLT 118 X1000 (130-400); RBC 3.26 XMIL (4.7-6.1); RDW 16.8 % (11.5-14.5); WBC 5.52 X1000 (4.8-10.8)
[2018-11-27 06:40] LABS: CALCIUM 7.6 mg/dL (8.8-10.2); CREATININE 2.2 mg/dL (0.7-1.2); POTASSIUM 3.8 mmol/L (3.5-5.1)
[2018-11-27] MEDS: PATIENT'S OWN MED PO SCH ×2 (08:14→21:19)
[2018-11-27] MEDS: ZYLOPRIM PO SCH (08:14)
[2018-11-27] MEDS: AMOXIL PO SCH ×2 (08:14→21:19)
[2018-11-27] MEDS: NICODERM PATCH TD SCH (08:15)
[2018-11-27] MEDS ORDERED: NS IV ONE ×4 (09:00→17:30)
[2018-11-27] MEDS ORDERED: ELITEK IV ONE (09:00)
[2018-11-27] MEDS: NS 1,000 ML IV SCH ×2 (11:43→17:18)
[2018-11-27] MEDS ORDERED: LASIX IV ONE (13:00)
--- NOTE | 2018-11-27 14:20 | HEMO/ONC PROGRESS NOTE ---
DATE: 11/27/2018 SUBJECTIVE: Patient is complaining of some increased shortness of breath. The patient still complains of abdominal discomfort as well. OBJECTIVE: Vital Signs: Temperature 98.4 degrees, heart rate 63, respiratory rate 22, blood pressure 116/57, saturating 95% on room air. General: Patient is awake, lying in bed, no acute distress noted. HEENT: Anicteric. Pupils PERRLA. Mucous membranes moist. Cardiovascular: S1, S2. Regular rate and rhythm. Chest: Bilateral breath sounds. Clear to auscultation. Abdomen: Soft, mildly tender. Bowel sounds present in all 4 quadrants. Neurologic: Alert and oriented x3. No focal deficits noted. LABORATORY DATA: White blood cell count 5.52, hemoglobin 8.7, hematocrit 28.5, platelets 118,000. Potassium 3.8, BUN 27, creatinine 2.2. ASSESSMENT AND PLAN: 1. Non-Hodgkin's lymphoma, severe gastric lymphoma and diffuse lymphadenopathy: Plan is to start his chemotherapy. We will need to monitor very closely for tumor lysis. We will continue to monitor closely. 2. Tumor lysis prophylaxis: Continue with allopurinol Continue with fluid hydration. Give Elitek today. 3. Shortness of breath: Patient has increased amounts of shortness of breath. Will give him an order of Lasix at this time. Continue to monitor very closely. 4. Anemia: Hemoglobin and hematocrit stable. No signs of bleeding at this time. Continue to monitor and transfuse as needed. 5. Acute kidney injury: Continue rehydration. Creatinine is slowly improving. 6. Supportive care: Continue protein shakes. Continue physical therapy. Plan of care discussed with Dr. Luna. Dictated by FRANCISCA Freeman for Wili Luna MD Patient seen and examined. As above. We will start him on chemotherapy today. Monitor for tumor lysis. We will give him elitek today. He is mildly short of breath. We will give him a dose of Lasix. Wili Luna M.D. cc: FRANCISCA Freeman MD [facility]
--- NOTE | 2018-11-27 14:23 | GASTROENTEROLOGY PROGRESS NOTE ---
DATE: 11/27/2018 SUBJECTIVE: Mr. Beckwith is awake today and he states he is feeling a little better. He believes they may start chemotherapy in the next day or so. He is following with Dr. Luna. OBJECTIVE: Vital Signs: Temperature 98.4 degrees, pulse 63, respirations 22, blood pressure 116/57. LABORATORY: Hematology. WBC 5.52, hemoglobin 8.7, hematocrit 28.5, MCV 87.4, platelet 118,000. Chemistry. Sodium 141, potassium 3.8, chloride 114, CO2 17, BUN 27, creatinine 2.2, glucose 88. ASSESSMENT AND PLAN: 1. Anemia stable. 2. Non-Hodgkin lymphoma with gastric involvement following with Dr. Luna. I believe they plan to start his 1st dose of chemotherapy while he is in the hospital. Will continue to follow and further plans will be made according to his progress. I have discussed this case with Dr. Hodge. Dictated by FRANCISCA Torres for Spencer Hodge MD cc: FRANCISCA Mckeon MD
--- NOTE | 2018-11-27 14:59 | PROGRESS NOTE ---
DATE: 11/27/2018 INTERVAL HISTORY: Patient still with some mild abdominal discomfort but somewhat improved. No current dyspnea. No new complaints. No acute events overnight. REVIEW OF SYSTEMS: Twelve point review of systems negative except as per interval history. LABS: WBC 5.5, hemoglobin 8.7, hematocrit 28.5, platelets 118,000. Sodium 141, potassium 3.8, chloride 114, bicarb 17, BUN 27, creatinine 2.2, glucose 88, calcium 7.6. VITAL SIGNS: T-max 98.4 degrees, pulse 63, respirations 22, blood pressure 116/57, O2 saturation 95% on room air. PHYSICAL EXAMINATION: General: No acute distress. Vital signs: As above. HEENT: Normocephalic, atraumatic. No cervical adenopathy. Cardiovascular: Regular rate and rhythm. No murmurs noted. Pulmonary: Clear to auscultation bilaterally. No wheezing, rales, or rhonchi. Abdomen: Soft, nontender, nondistended. Bowel sounds positive. Extremities: Peripheral pulses decreased but present. No clubbing or cyanosis. Neurologic: Cranial nerves 2-12 grossly intact. No focal deficits identified, although he is somewhat globally weak. Psychiatric: Asleep but easily aroused. Normal mood and affect. Awake, alert. Skin: No new rashes or lesions identified. ASSESSMENT AND PLAN: 1. Non-Hodgkin's lymphoma with gastric involvement. Dr. Luna on board and planning on continuing chemotherapy today. Pretreating with rasburicase for tumor lysis syndrome. Last uric acid stable at 7.6. Management as per Hematology/Oncology. Also on allopurinol for tumor lysis prophylaxis. 2. Anemia. Blood count stable. Likely related to hematologic malignancy. 3. Acute kidney on likely chronic kidney disease 3. Creatinine 3.0 on admission. Has been as low as 2.0, but bouncing around in the low 2's. I suspect he is now at or near his baseline CKD 3, bordering on CKD 4. Continue to monitor kidney function. 4. Disposition. As per Oncology.
[2018-11-27] MEDS ORDERED: TYLENOL PO ONE (15:45)
[2018-11-27] MEDS ORDERED: ZOFRAN 16 MG in NS 50 ML IV ONE (16:00)
[2018-11-27] MEDS ORDERED: BENADRYL INJ ONE (16:30)
[2018-11-27] MEDS ORDERED: NS INJ ONE (16:30)
[2018-11-27] MEDS ORDERED: PEPCID IV ONE (16:50)
[2018-11-27] MEDS ORDERED: DECADRON IV ONE (17:20)
[2018-11-27] MEDS ORDERED: CYTOXAN IV ONE (17:30)
[2018-11-27] MEDS ORDERED: ONCOVIN IV ONE (18:15)
[2018-11-27] MEDS ORDERED: NS 500 ML IV ONE (19:15)
[2018-11-28] MEDS: NS 1,000 ML IV SCH ×3 (06:14→17:51)
[2018-11-28] MEDS: PROTONIX IV SCH ×2 (06:14→17:55)
[2018-11-28] MEDS: CARAFATE LIQUID PO SCH ×4 (06:14→22:12)
[2018-11-28 07:48] LABS: BASO# 0.03 X1000 (0.0-0.2); BASO% 0.5 % (0.0-0.8); HEMATOCRIT 27.1 % (42.0-52.0); HEMOGLOBIN 8.4 g/dL (14.0-18.0); IMM GRAN# 0.02 X1000 (0.0-0.04); IMM GRAN% 0.3 % (0.0-0.5); LYMPH# 2.27 X1000 (1.2-3.4); LYMPH% 34.2 % (20.5-51.1); MCV 87.1 FL (81-99); MONO# 0.13 X1000 (0.11-0.59); MPV 11.5 FL (7.4-10.4); NEUT# 4.18 X1000 (1.4-6.5); PLT 119 X1000 (130-400); RBC 3.11 XMIL (4.7-6.1); RDW 16.8 % (11.5-14.5); WBC 6.63 X1000 (4.8-10.8)
[2018-11-28 08:16] LABS: CALCIUM 7.3 mg/dL (8.8-10.2); CREATININE 2.3 mg/dL (0.7-1.2); POTASSIUM 4.7 mmol/L (3.5-5.1)
--- NOTE | 2018-11-28 08:34 | HEMO/ONC PROGRESS NOTE ---
DATE: 11/28/2018 SUBJECTIVE: Patient says this is the best he has felt in a couple of months. The patient denies any pain. The patient denies any shortness of breath. No new complaints. OBJECTIVE: Vital Signs: Temperature 97.7 degrees, heart rate 75, respiratory rate 17, blood pressure 134/54, satting 97% on room air. General: Patient is awake, lying in bed, no acute distress noted. HEENT: Anicteric. Pupils PERRLA. Mucous membranes appear to be moist. Cardiovascular: S1, S2. Regular rate and rhythm. Chest: Bilateral breath sounds. Clear to auscultation. Abdomen: Soft, nontender. Bowel sounds present in all 4 quadrants. Neurologic: Alert and oriented x3. No focal deficits noted. LABORATORY DATA: White blood cell count 6.63, hemoglobin 8.4, hematocrit 27.1, platelets are 119. ASSESSMENT/PLAN: 1. Non-Hodgkin lymphoma with severe gastric involvement: The patient received chemotherapy yesterday. Patient tolerated it well. Continue to monitor very closely for tumor lysis. 2. Tumor lysis prophylaxis: The patient to continue allopurinol. Patient received Elitek yesterday and will receive another dose today. Continue fluid hydration. Continue to monitor labs closely. 3. Shortness of breath: The patient denies any shortness of breath today. Continue to monitor. 4. Anemia: Hemoglobin and hematocrit continue to be stable. No signs of bleeding. Transfuse as needed. 5. Supportive care: Continue protein shakes. Continue physical therapy. Have patient get up as much as possible. Dictated by FRANCISCA Freeman for Wili Luna MD Patient seen and examined. As above. Doing well without significant tumor lysis syndrome. Proceed with Elitek today. Continue allopurinol and fluids. Hopefully home soon. Wili Luna M.D. cc: FRANCISCA Freeman MD [facility]
[2018-11-28] MEDS ORDERED: ELITEK IV ONE (09:00)
[2018-11-28] MEDS ORDERED: NS IV ONE (09:00)
[2018-11-28] MEDS ORDERED: MISC. PHARMACY COMMUNICATION SCH (09:00)
[2018-11-28] MEDS: NICODERM PATCH TD SCH (09:15)
[2018-11-28] MEDS: ZYLOPRIM PO SCH (09:15)
[2018-11-28] MEDS: AMOXIL PO SCH ×2 (09:15→22:12)
[2018-11-28] MEDS: PATIENT'S OWN MED PO SCH ×2 (09:16→22:13)
--- NOTE | 2018-11-28 13:53 | Carotid Study ---
DATE: 11/22/2018 PROCEDURE: Bilateral duplex and color flow imaging of the carotid arteries performed using the [employer] Vivid E9 ultrasound system with a 9L-D transducer. REFERRING PHYSICIAN: Bryson Case MD. TECH: Monserrat Lazcano [facility]. INDICATIONS: A 73-year-old male, near syncope. OBSERVED DATA RIGHT LEFT Brachial Blood Pressure Carotid Pulse Bruits: Carotid/Sub DIAGRAM OF ULTRASOUND IMAGING R L RIGHT INT EXT INT EXT LEFT Luis (cm/s) Luis (cm/s) Subclavian 93/0 Subclavian 114/0 CCA Proximal 94/8 CCA Proximal 127/11 CCA Distal 53/11 CCA Distal 84/17 Bulb 53/12 Bulb 78/15 ICA Proximal 79/23 ICA Proximal 144/30 ICA Mid 129/25 ICA Mid 78/19 ICA Distal 74/20 ICA Distal 77/16 ECA 77/0 ECA 77/5 Vertebral 41/20 forward flow Vertebral 70/13 forward flow ICA/CCA Ratio 1.37 ICA/CCA Ratio 1.14 % Stenosis 0-39% % Stenosis 40-59% PHYSICIAN INTERPRETATION: [id number] atherosclerotic disease of the distal common and the internal carotid arteries bilaterally without evidence of a hemodynamically significant lesion in either carotid system. cc: Marisela Jackson MD
--- NOTE | 2018-11-28 14:15 | PROGRESS NOTE ---
DATE: 11/28/2018 INTERVAL HISTORY: The patient is status post chemotherapy yesterday. Tolerated it well. Denying any discomfort at all today. Abdominal discomfort is resolved. No nausea, vomiting, fever, chills, chest pain, dyspnea. No acute events overnight. REVIEW OF SYSTEMS: Twelve point review of systems negative except as per interval history. LABS: WBCs 6.6, hemoglobin 8.4, hematocrit 27.1, platelets 119,000. Sodium 140, potassium 4.7, BUN 32, creatinine 2.3, glucose 133, calcium 7.3. VITAL SIGNS: T-max 98.4 degrees, pulse 71, respirations 20, blood pressure 154/67, O2 saturation 97% on room air. PHYSICAL EXAMINATION: General: No acute distress. Vitals: As above. HEENT: Normocephalic, atraumatic. Moist mucous membranes. No cervical adenopathy. Cardiovascular: Regular rate and rhythm. No murmurs, rubs, or gallops. Pulmonary: Clear to auscultation bilaterally. No wheezes, rales, or rhonchi. Abdomen: Soft, nontender, nondistended. Bowel sounds positive. Extremities: Peripheral pulses decreased but present. No clubbing or cyanosis. Neurologic: Cranial nerves 2-12 grossly intact. No focal deficits identified. Remains slightly globally weak. Psychiatric: Awake, alert. Normal mood and affect. Cooperative. Skin: No new rashes or lesions identified. ASSESSMENT AND PLAN: 1. Non-Hodgkin's lymphoma with gastric involvement. Dr. Luna on board. Status post chemotherapy yesterday. He was pretreated with rasburicase for possible tumor lysis syndrome. Management as per hematology/oncology. Continue allopurinol. 2. Anemia. Blood count stable. Likely related to hematologic malignancy. 3. Acute kidney injury on chronic kidney disease 3. Creatinine 3 on admission, has been as low as 2 but largely 2.2 to 2.3. Essentially stable today. 4. Disposition, awaiting further oncology recommendations.
--- NOTE | 2018-11-28 14:51 | GASTROENTEROLOGY PROGRESS NOTE ---
DATE: 11/28/2018 SUBJECTIVE: Patient states he feels better today than he has in several months. He had his 1st chemotherapy dose last evening and tolerating it well. He states he had a good night's sleep. He currently denies complaints. OBJECTIVE: Vital Signs: Temperature 97.6 degrees, pulse 71, respirations 20, blood pressure 154/67. General: Patient is awake, alert, in no acute distress. LABORATORY: Hematology: WBC 6.63, hemoglobin 8.4, hematocrit 27.1, MCV 87.1, platelet 119,000. Chemistry: Sodium 140, potassium 4.7, chloride 114, CO2 16, BUN 32, creatinine 2.3, glucose 133, calcium 7.3. ASSESSMENT AND PLAN: 1. Non-Hodgkin's lymphoma with gastric involvement following with Dr. Luna. He has had his 1st chemotherapy dose yesterday and tolerated well. 2. Anemia. Hemoglobin and hematocrit are stable. There has been no sign of active GI bleeding. PLAN: Continue symptomatic treatment. Supportive care. Continue to follow with Dr. Luna regarding his non-Hodgkin's lymphoma and initiation of his chemotherapy. There is no evidence of active bleeding. GI will sign off for now. Please re-consult if needed. I have discussed this case with Dr. Hodge. Dictated by FRANCISCA Torres for Spencer Hodge MD cc: FRANCISCA Mckeon MD
[2018-11-28] MEDS: NORCO-7.5 PO PRN (17:54)
[2018-11-29] MEDS: SODIUM CHLORIDE 0.9% INJ SCH (05:35)
[2018-11-29] MEDS: PROTONIX IV SCH (05:35)
[2018-11-29] MEDS: CARAFATE LIQUID PO SCH ×2 (05:35→12:00)
[2018-11-29] MEDS: NS 1,000 ML IV SCH (05:52)
[2018-11-29 08:08] LABS: CALCIUM 7.3 mg/dL (8.8-10.2); POTASSIUM 4.4 mmol/L (3.5-5.1)
[2018-11-29 08:23] LABS: BASO# 0.01 X1000 (0.0-0.2); BASO% 0.1 % (0.0-0.8); HEMATOCRIT 24.3 % (42.0-52.0); HEMOGLOBIN 7.5 g/dL (14.0-18.0); LYMPH# 1.49 X1000 (1.2-3.4); LYMPH% 22.3 % (20.5-51.1); MCH 26.8 PG (27-31); MCHC 30.9 g/dL (33-37); MCV 86.8 FL (81-99); MONO# 0.29 X1000 (0.11-0.59); MONO% 4.3 % (1.7-9.3); MPV 11.3 FL (7.4-10.4); NEUT# 4.88 X1000 (1.4-6.5); NEUT% 73.3 % (42.2-75.2); PLT 98 X1000 (130-400); RDW 16.5 % (11.5-14.5); WBC 6.67 X1000 (4.8-10.8)
--- NOTE | 2018-11-29 08:44 | HEMO/ONC PROGRESS NOTE ---
DATE: 11/29/2018 SUBJECTIVE: Patient continues to feel well. No complaints at this time. OBJECTIVE: Vital Signs: Temperature 97.5 degrees, heart rate 66, respiratory rate 21, blood pressure 127/60, saturation 99% on room air. General: Patient is awake, lying in bed, in no acute distress noted. HEENT: Anicteric. Pupils PERRLA. Mucous membranes moist. Cardiovascular: S1, S2. Regular rate and rhythm. Chest: Bilateral breath sounds clear to auscultation. Abdomen: Soft, nontender. Bowel sounds present all 4 quadrants. Neurologic: Alert and oriented x3. No focal deficits noted. LABORATORY DATA: H/H 7.5/24.3, Platelets 98,000. Potassium 4.4, BUN 41, Creatinine 2.0 ASSESSMENT AND PLAN: 1. Non-Hodgkin lymphoma with severe gastric involvement: Patient received chemotherapy. The patient tolerated it well. Continue to monitor labs very closely. 2. Tumor lysis prophylaxis: Patient to continue allopurinol. Patient received Elitek yesterday. Continue fluid hydration. Continue to monitor BMP closely. 3. Anemia: Hemoglobin and hematocrit lower caused by chemotherapy. No signs of bleeding. Continue to monitor closely. 4. Supportive care. Continue protein shakes. Continue physical therapy. Continue patient to get up as much as possible. Plan of care discussed with Dr. Luna. Dictated by FRANCISCA Freeman for Wili Luna MD Patient seen and examined. As above. Doing well. Walked in the hallway. Eager to go home. Labs noted. Okay for discharge from my standpoint. Continue allopurinol. We will see him back in the clinic for follow-up within a week. Wili Luna M.D. cc: FRANCISCA Freeman MD [facility]
[2018-11-29] MEDS: ZYLOPRIM PO SCH (09:39)
[2018-11-29] MEDS: NICODERM PATCH TD SCH (09:39)
[2018-11-29] MEDS: PATIENT'S OWN MED PO SCH (09:39)
[2018-11-29] MEDS: AMOXIL PO SCH (09:39)
[2018-11-29 11:19] VITALS: BP 135/72
--- NOTE | 2018-11-29 16:27 | DISCHARGE SUMMARY ---
ADMISSION DATE: 11/22/2018 DISCHARGE DATE: 11/29/2018 CONSULTATIONS: Hematology/Oncology. IMAGIN. Kidney ultrasound with ascites, medical renal disease, but no obstructive uropathy. 2. Echocardiogram with EF 65%. Some mild diastolic dysfunction. Pulmonary artery pressure moderately elevated at 55. No major valvular abnormalities. 3. Carotid Doppler with mild to moderate plaque, but no hemodynamically significant lesion on either side. DISCHARGE DIAGNOSES: 1. Non-Hodgkin's lymphoma with gastric involvement. 2. Hyperuricemia. 3. Anemia. 4. Chronic pain. 5. Tobacco abuse. HOSPITAL COURSE: The patient is a 73-year-old male with recently diagnosed lymphoma primarily involving the stomach who came in with generalized weakness and dizziness. Blood counts were mildly decreased, but not really a significant issue with a hemoglobin of 10.5. He is thought to be dehydrated, and had an DAVID with creatinine up to 3.5. He was hydrated aggressively, and this did improve to approximately 2.0. His dizziness also improved with hydration. Hematology-Oncology was involved, and they elected to start his chemotherapy while inpatient. He was placed on allopurinol. He did have elevated uric acid, but never developed aria tumor lysis syndrome. He was treated with rasburicase just prior to his chemo treatment. With allopurinol and rasburicase, he tolerated the chemotherapy very well with no major issues. Once Oncology was sure that he was not going to go into tumor lysis, they were okay with him discharging home to follow up with him for further therapy. 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 He did have slight decrease in his blood counts after chemotherapy with discharge hemoglobin of 7.5 but he appeared to be asymptomatic with this. We recommended recheck with either Hematology or his PCP within the next 1 to 2 weeks as outpatient. On discharge, he was continued on allopurinol as started by Oncology. DISCHARGE VITALS: Temperature 97.7 degrees, pulse 85, respirations 21, blood pressure 135/72, and 02 sat 100% on room air. DISCHARGE DIET: Regular. DISCHARGE MEDICATIONS: 1. Amoxicillin as previously prescribed. 2. Clarithromycin as previously prescribed. 3. Lansoprazole 30 mg p.o. b.i.d. 4. Nicotine patch 21 mg daily for smoking cessation. 5. Lytton 7.5/325 q.6 hours p.r.n. 6. Phenergan 25 mg p.o. q.6 h. p.r.n. 7. Tramadol 50 mg p.o. b.i.d. p.r.n. 8. Allopurinol 200 mg p.o. daily. FOLLOWUP AND PLAN: Patient discharged home to follow up with Oncology for further chemotherapy and with his PCP. Recheck CBC and BNP within one to two weeks to check blood counts and kidney function. TIME SPENT: Greater than 30 minutes spent arranging discharge and counseling patient. ELLA
== END 2018-11-29 15:58 | disposition home health service (06) | DRG 683 ==
LOC: ED 12:58 → SUATTDRO 17:52 → 4N 17:52 → 3N 11-27 14:34
PROVIDERS: ATTEND Internal Medicine
CPT/HCPCS: 76770; 80048; 80053; 81001; 82150; 82270; 82533; 83615; 83690; 83735; 84132; 84443; 84550; 85014; 85018; 85025; 85610; 85730; 93005; 93010; 93306; 93880; 96360; 97161; 97530; 99284; A9270; C9113; J1200; J1439; J1940; J2405; J2783; J7030; J7040; J7050; J9070; J9370; S0028; S0164

== ENCOUNTER 2019-04-02 16:23 | Inpatient (IN) ==
[2019-04-02] MEDS ORDERED: ZOFRAN IV PRN (17:17)
[2019-04-02] MEDS ORDERED: PHENERGAN PO PRN (17:35)
[2019-04-02 17:49] LABS: BASO# 0.03 X1000 (0.0-0.2); BASO% 0.3 % (0.0-0.8); EOS# 0.03 X1000 (0.0-0.7); EOS% 0.3 % (0.0-10.0); HEMATOCRIT 18.4 % (42.0-52.0); IMM GRAN# 0.04 X1000 (0.0-0.04); IMM GRAN% 0.4 % (0.0-0.5); LYMPH# 0.35 X1000 (1.2-3.4); LYMPH% 3.8 % (20.5-51.1); MCH 28.9 PG (27-31); MCV 93.4 FL (81-99); MONO# 0.32 X1000 (0.11-0.59); MONO% 3.5 % (1.7-9.3); MPV 11.6 FL (7.4-10.4); NEUT% 91.7 % (42.2-75.2); PLT 192 X1000 (130-400); RBC 1.97 XMIL (4.7-6.1); RDW 17.9 % (11.5-14.5); WBC 9.27 X1000 (4.8-10.8)
[2019-04-02 17:51] LABS: HEMOGLOBIN 5.7 g/dL (14.0-18.0)
[2019-04-02 18:08] LABS: ALB/GLOB RATIO 1.2; ALBUMIN 3.2 g/dL (3.5-5.0); CALCIUM 8.9 mg/dL (8.8-10.2); CREATININE 2.1 mg/dL (0.7-1.2); POTASSIUM 4.1 mmol/L (3.5-5.1); TOTAL BILIRUBIN 0.37 mg/dL (0.20-1.00); TOTAL PROTEIN 5.9 g/dL (6.3-8.3)
[2019-04-02 18:10] LABS: INR 1.06; PROTIME 14.6 Seconds (11.0-16.0)
[2019-04-02 18:23] LABS: PTT 35.3 Seconds (22.3-41.8)
--- NOTE | 2019-04-02 18:23 | HISTORY AND PHYSICAL ---
CHIEF COMPLAINT: GI bleed, shortness of breath. HPI: This is a very pleasant 74-year-old gentleman with a history of non- Hodgkin lymphoma primarily gastric, gastric mass with diffuse lymphadenopathy. He presents as a direct admit from Dr. Luna's office coming in with shortness of breath, just generalized weakness. He was found to have a hemoglobin of 6.5 today. The patient has undergone chemotherapy. This started in November with the last chemotherapy treatment being 03/12/2019. Of note in September he did experience bleeding. He has been evaluated by Dr. Ramirez and actually has a EGD scheduled for Monday but over the last 24 to 48 hours he has developed generalized weakness, shortness of breath. He was evaluated by Dr. Luna today and found to have a hemoglobin of 6.5. Of note he did recently received iron. PAST MEDICAL HISTORY: 1. Non-Hodgkin lymphoma with diffuse stomach involvement. 2. Diabetes mellitus. 3. Hypercholesterolemia. PAST SURGICAL HISTORY: Appendectomy, partial tongue resection, cataracts, left eye retinal detachment, reattachment. SOCIAL HISTORY: He smoked for the past 50 years. He denies alcohol or illicit drug use. ALLERGIES: No known drug allergies. HOME MEDICATIONS: A list will be obtained by the nursing staff and once verified will review and restart as appropriate. REVIEW OF SYSTEMS: Discussed with patient with pertinent positives stated in HPI. He denied any syncope or dizziness, any chest pain or palpitations, any productive cough, fever, chills, any night sweats, any black or bloody vomitus, any hematuria, dysuria, frequency, urgency. PHYSICAL EXAMINATION: GENERAL: This is a 74-year-old gentleman who is lying on the bed on the medical floor in no distress. HEENT: Pupils are equal, round, react to light. EOMs are intact. Sclerae are anicteric. Head is normocephalic, atraumatic. Mucous membranes are dry. NECK: Supple with trachea midline. CARDIOVASCULAR: Regular rate and rhythm. S1 and S2 appreciated. He has no lower extremity edema. Calves are nontender bilateral. PULMONARY: Breath sounds are clear. No increased work of breathing noted. Chest rises and falls symmetric respiration. GASTROINTESTINAL: Abdomen soft, nontender, nondistended. Bowel sounds in all 4 quadrants. : He has no CVA or suprapubic tenderness. SKIN: Warm and dry. NEUROLOGIC: He is alert and oriented. ASSESSMENT AND PLAN: 1. Gastrointestinal bleed. The patient will have clear liquids. He will be NPO after midnight. We will schedule an EGD for in the morning. Consult Dr. Ramirez. 2. Will obtain a stat CBC, CMP, PT, INR, and PTT, will cross for 4 units of blood, give 2 over 4 hours each tonight. Recheck CBC and BMP in the morning. 3. Non-Hodgkin lymphoma with gastric involvement aware. Will consult Dr. Luna. 4. Diabetes mellitus. Placed on pattern blood glucose with sliding scale insulin. 5. For deep vein thrombosis prophylaxis will use SCDs, gastrointestinal prophylaxis will start Carafate, give Nexium b.i.d. 6. Plans discussed with Dr. Hernandez as well as Dr. Ramirez. 7. Further treatments pending hospital course. Dictated by FRANCISCA Glass for Clayton Griffin MD Addendum: Patient seen and examined by myself. Agree with FRANCISCA note. It reflects my assessment and plan. Patient is being admitted to hospital for GI bleeding. Will check HH and transfuse if needed. GI will be consulted for endoscopy. Will monitor patient closely. cc: FRANCISCA Glass MD [facility]PITALSheree
[2019-04-02 18:51] LABS: ANISOCYTOSIS 1+; LYMPHS 2 % (21-51); MONO 2 % (1-9); SEGS 96 % (42-75)
[2019-04-02] MEDS: NS 1,000 ML IV SCH (18:56)
[2019-04-02] MEDS: NEXIUM IV SCH (18:56)
[2019-04-02] MEDS: HUMALOG SUBQ SCH (20:31)
[2019-04-02] MEDS: CARAFATE PO SCH (20:36)
[2019-04-03] MEDS: CARAFATE PO SCH ×2 (05:59→11:25)
[2019-04-03] MEDS: HUMALOG SUBQ SCH ×4 (06:04→20:33)
[2019-04-03] MEDS: SODIUM CHLORIDE 0.9% INJ SCH (06:16)
[2019-04-03] MEDS: NEXIUM IV SCH ×2 (06:16→17:51)
[2019-04-03 06:22] LABS: BASO# 0.04 X1000 (0.0-0.2); BASO% 0.5 % (0.0-0.8); EOS# 0.06 X1000 (0.0-0.7); EOS% 0.8 % (0.0-10.0); HEMATOCRIT 23.4 % (42.0-52.0); HEMOGLOBIN 7.4 g/dL (14.0-18.0); IMM GRAN# 0.03 X1000 (0.0-0.04); IMM GRAN% 0.4 % (0.0-0.5); LYMPH# 0.26 X1000 (1.2-3.4); LYMPH% 3.5 % (20.5-51.1); MCH 29.5 PG (27-31); MCHC 31.6 g/dL (33-37); MCV 93.2 FL (81-99); MONO# 0.46 X1000 (0.11-0.59); MONO% 6.2 % (1.7-9.3); MPV 11.7 FL (7.4-10.4); NEUT# 6.53 X1000 (1.4-6.5); NEUT% 88.6 % (42.2-75.2); PLT 144 X1000 (130-400); RBC 2.51 XMIL (4.7-6.1); RDW 16.4 % (11.5-14.5); WBC 7.38 X1000 (4.8-10.8)
[2019-04-03 06:56] LABS: CALCIUM 8.9 mg/dL (8.8-10.2); CREATININE 2.1 mg/dL (0.7-1.2); POTASSIUM 4.5 mmol/L (3.5-5.1)
[2019-04-03] MEDS ORDERED: ROBINUL ONE (09:36)
[2019-04-03] MEDS ORDERED: DIPRIVAN 1% ONE (10:40)
[2019-04-03] MEDS ORDERED: XYLOCAINE-MPF 2% ONE (10:40)
--- NOTE | 2019-04-03 11:02 | ENDOSCOPY OPERATIVE NOTE ---
[facility] ENDOSCOPY OPERATIVE NOTE , PATIENT: Yohan Beckwith ADMISSION DATE: 04/03/2019 MR#: [id number] : 1945 [facility]: [id number] EGD PROCEDURE REPORT PROCEDURE DATE: 04/03/2019 SURGEON: Mohit Wood MD STATUS: inpatient HAIR BALER: PREOPERATIVE DIAGNOSIS: The patient is a 74 yr old male here for an EGD due to iron deficiency anemi a and melena. PROCEDURE PERFORMED: EGD, diagnostic MEDICATIONS: Per Anesthesia TOPICAL ANESTHETIC: none CONSENT: The patient understands the risks and benefits of the procedure and understands that these r isks include, but are not limited to: sedation, allergic reaction, infection, perforation and/or bleeding. Alternative means of evaluation and treatment include, among others: physical exam, x-rays, and/or surgical intervention. The patient elects to proceed with this endoscopic procedure. HISORY AND PHYSICAL: 04/03/2019 function. Hand hygiene and appropriate measures for infection prevention was taken. After the risks, benefits and alternatives of the procedure were thoroughly explained, Informed consent was verified, confirmed and timeout was successfully executed by the treatment team. The patient was anesthetized with topical anesthesia and the endoscope was introduced through the mouth and advanced to the stomach body. The procedure was aborted secondar y to retained gastric contents. Retroflexion of the stomach was not performed. The gastroscope was then slowly wit hdrawn and removed. ESOPHAGUS: The mucosa of the esophagus appeared normal. The z-line was noted at 40cm from the incis ors. The z-line appeared normal. STOMACH: Large amount of retained food was found in the gastric body. No obvious stigmata of bleedin g. SPECIMENS REMOVED: No ADVERSE EVENTS: There were no complications. POSTOPERATIVE DIAGNOSIS: 1. The mucosa of the esophagus appeared normal 2. The z-line was noted at 40cm from the incisors 3. Large amount of retained food was found in the gastric body. No obvious stigmata of bleeding RECOMMENDATIONS: Clear liquid diet Reglan 10mg IV once Continue PPI BID Stop carafate Continue IVFs Trending H/H daily, transfuse prn for goal hgb 7-8 NPO after 6PM today for repeat diagnostic EGD tomorrow with Dr. Ramirez REPEAT EXAM: Mohit Wood MD eSigned: Mohit Wood MD 04/03/2019 11:01 AM cc: PATIENT NAME: Yohan Beckwith MR#: [id number]
--- NOTE | 2019-04-03 12:06 | PROGRESS NOTE ---
DATE: 04/03/2019 SUBJECTIVE: Patient reports feeling fine. Denies any nausea or vomiting. OBJECTIVE: Vital Signs: Temperature 97.7 degrees, heart rate 66, respiratory rate 18, blood pressure 110/49, O2 saturation 100% on room air. General Examination: This is a chronically ill- appearing and frail, 74-year-old, male, lying in bed, in no acute distress. Cardiovascular Examination: S1 and S2 heard. No murmurs, gallops, or rubs. Regular rate and rhythm. Respiratory Examination: Clear bilaterally to auscultation. No work of breathing or using accessory muscles. Abdomen: Soft, nontender to palpation. Bowel sounds present. No organomegaly. Extremities: No clubbing, cyanosis, or edema. Peripheral pulses present in both legs. Neurological Examination: The patient is alert and oriented x3. Moves 4 extremities. Laboratory Data: Hemoglobin is 7.4 hematocrit 23.4, platelets 144,000. Creatinine 2.1. ASSESSMENT AND PLAN: 1. Gastrointestinal bleeding. The patient went for endoscopy and apparently the patient still had some stomach contents so it was not possible to perform a proper procedure. The patient will have an endoscopy repeated tomorrow with nothing per oral at 6 p.m. today. 2. Anemia of blood loss. Patient is going to be transfused 1 more unit of blood. We will continue to monitor. 3. Non-Hodgkin's lymphoma with gastric involvement. Aware. Dr. Luna is on board. 4. Diabetes mellitus type 2. We will continue with sliding scale insulin. Accu-Chek before meals and also at bedtime. 5. Disposition. Following the lead from gastroenterology, will repeat the esophagogastroduodenoscopy tomorrow. cc: Clayton Griffin MD
[2019-04-03] MEDS: REGLAN IV SCH ×3 (12:42→22:47)
--- NOTE | 2019-04-03 12:44 | GASTROENTEROLOGY CONSULTATION ---
DATE: 04/03/2019 REASON FOR CONSULTATION: Melena, anemia. HISTORY OF PRESENT ILLNESS: Mr. Yohan Beckwith is a 74-year-old gentleman with a past medical history of non-Hodgkin's gastric lymphoma diagnosed in October of 2018, who presents with symptomatic anemia and an episode of melena about 1-1/2 days ago. The patient also has a history of iron deficiency anemia, ubp-[id number]-[id number] diabetes, hyperlipidemia. He was admitted directly from Dr. Luna's office after presenting with shortness of breath, generalized weakness, and lightheadedness. He was found to have a hemoglobin of 6.5 and was directed to the hospital for transfusion and expedited GI workup. He was scheduled to have a diagnostic EGD this Monday with Dr. Ramirez. However, given patient's worsening symptoms, the decision was for him to be directly admitted to the hospital. He has received IV iron per Dr. Luna. The patient does not look at his stools regularly. However, he did say that he had one episode of dark black stools about a day and half ago. He also reports some intermittent nausea and vomiting that has been nonbloody, as well as some epigastric tenderness. He has lost about 100 pounds in the last 6 months and is currently undergoing chemotherapy. REVIEW OF SYSTEMS: As per HPI, otherwise 12 point review of systems is negative. PAST SURGICAL HISTORY: Appendectomy, partial tongue resection, cataracts, left eye retinal detachment and reattachment. SOCIAL HISTORY: He smokes about 1 cigarette per day. He has a longstanding smoking history for the last 50 years. No alcohol or drug use. ALLERGIES: No known drug allergies. HOME MEDICATIONS: Include zinc, metoprolol, multivitamin, and vitamin B complex. A complete medication list has not been reconciled. FAMILY HISTORY: The patient believes his father may have had gastric cancer. PHYSICAL EXAMINATION: Vital Signs: Blood pressure is 110/49, temperature 97.7 degrees, heart rate of 66, respiratory rate 18, O2 saturation 100% on 2 L nasal cannula. General: The patient is chronically ill-appearing, awake, alert, oriented, in no acute distress. HEENT: Sclerae anicteric. Moist mucous membranes. Extraocular motor intact. Neck: Supple. No JVD or lymphadenopathy. Cardiac: Regular rate and rhythm. No murmurs, rubs, or gallops. Lungs: Clear to auscultation bilaterally. Abdomen: Soft. Minimal tenderness to palpation in the epigastric area. No rebound or guarding. Bowel sounds are present. No ascites. Extremities: No clubbing, cyanosis, or edema. Neurologic: Nonfocal. LABS: White count of 7.38, hemoglobin is 7.4 after receiving 2 units of packed red blood cells from hemoglobin of 7.5 yesterday. His last hemoglobin in our system prior to this was 7.3 in December of this year. Platelets are 144,000. INR is 1.06. Sodium 136, potassium 4.5, chloride 102, bicarb 24, anion gap of 10, BUN of 69, creatinine of 2.1, glucose of 97. LFTs yesterday were unrevealing. IMAGING: None. ASSESSMENT AND PLAN: Mr. Yohan Beckwith is a 74-year-old gentleman with non- Hodgkin's gastric lymphoma and chronic iron deficiency anemia who presents with symptomatic anemia in the setting of melena, concerning for upper gastrointestinal bleed from known gastric lymphoma. The patient is currently stable. He has received 2 units of packed red blood cells overnight. Hemoglobin has responded appropriately. He is on Carafate 1 g four times a day as well as intravenous Nexium twice a day. He is nothing per oral for a diagnostic esophagogastroduodenoscopy today for evaluation of treatable lesions. We will continue to trend his hemoglobin and hematocrit daily. We are holding any blood thinners. He is receiving intravenous fluids with normal saline at 75 mL per hour. Further recommendations postprocedure. # Melena # Anemia # Non-Hodgkin's lympoma # Epigastric pain # N/V Thank you for this consult. We will follow with you. Please call with any questions or concerns. [facility]
[2019-04-03] MEDS: NS 1,000 ML IV SCH (13:14)
[2019-04-04] MEDS: REGLAN IV SCH ×4 (05:25→22:50)
[2019-04-04] MEDS: NEXIUM IV SCH ×2 (05:25→17:40)
[2019-04-04] MEDS: HUMALOG SUBQ SCH ×4 (05:59→22:26)
[2019-04-04] MEDS: NS 1,000 ML IV SCH ×2 (05:59→22:00)
[2019-04-04 06:54] LABS: BASO# 0.02 X1000 (0.0-0.2); BASO% 0.3 % (0.0-0.8); EOS# 0.06 X1000 (0.0-0.7); HEMATOCRIT 24.5 % (42.0-52.0); HEMOGLOBIN 7.9 g/dL (14.0-18.0); LYMPH% 3.5 % (20.5-51.1); MCH 29.8 PG (27-31); MCHC 32.2 g/dL (33-37); MCV 92.5 FL (81-99); MONO# 0.32 X1000 (0.11-0.59); MONO% 5.6 % (1.7-9.3); NEUT# 5.12 X1000 (1.4-6.5); NEUT% 89.6 % (42.2-75.2); PLT 131 X1000 (130-400); RBC 2.65 XMIL (4.7-6.1); RDW 16.2 % (11.5-14.5); WBC 5.72 X1000 (4.8-10.8)
[2019-04-04 07:17] LABS: MONO 2 % (1-9); SEGS 98 % (42-75)
[2019-04-04] MEDS ORDERED: DIPRIVAN 1% ONE (07:43)
[2019-04-04] MEDS ORDERED: XYLOCAINE-MPF 2% ONE (07:43)
[2019-04-04] MEDS ORDERED: FENTANYL ONE (07:55)
--- NOTE | 2019-04-04 09:04 | ENDOSCOPY OPERATIVE NOTE ---
[facility] ENDOSCOPY OPERATIVE NOTE , PATIENT: Yohan Beckwith ADMISSION DATE: MR#: [id number] : 1945 EGD PROCEDURE REPORT PROCEDURE DATE: 04/04/2019 SURGEON: Mohinder Ramirez MD STATUS: inpatient BASS GUITAR TEACHER: Gail Sam and Stephanie Clark PREOPERATIVE DIAGNOSIS: The patient is a 74 yr old male here for an EGD due to anemia, melena, and H istory of stomach mass ? Lymphoma. PROCEDURE PERFORMED: EGD w/ biopsy MEDICATIONS: Per Anesthesia TOPICAL ANESTHETIC: none CONSENT: The patient understands the risks and benefits of the procedure and understands that these r isks include, but are not limited to: sedation, allergic reaction, infection, perforation and/or bleeding. Alternative means of evaluation and treatment include, among others: physical exam, x-rays, and/or surgical intervention. The patient elects to proceed with this endoscopic procedure. HISORY AND PHYSICAL: 04/04/2019 function. Hand hygiene and appropriate measures for infection prevention was taken. After the risks, benefits and alternatives of the procedure were thoroughly explained, Informed consent was verified, confirmed and timeout was successfully executed by the treatment team. The patient was anesthetized with topical anesthesia and the [id number]-[id number] ([id number]) endoscope was introduced through the mouth and advanced to the second portion of the duoden um. Retroflexion was performed in the stomach and revealed food in the fundus and cardia. The gastroscope was then sl owly withdrawn and removed. ESOPHAGUS: The mucosa of the esophagus appeared normal. STOMACH: A half circumferential ulcerated mass with friable surfaces was found at the incisura, in th e gastric antrum, and prepyloric region stomach. Having spontaneous and contact intermittent bleeding. Multiple biops ies were performed using cold forceps. Sample sent for histology. There was a large amount of residual food in the ga stric body. Due to the residual food, complete mucosal examination could not be performed. DUODENUM: The duodenal mucosa showed no abnormalities in the duodenal bulb, 1st part duodenum, and 2n d part duodenum. SPECIMENS REMOVED: Yes ADVERSE EVENTS: There were no complications. POSTOPERATIVE DIAGNOSIS: 1. The mucosa of the esophagus appeared normal 2. Half circumferential mass was found at the incisura, in the gastric antrum, and prepyloric region stomach; having spontaneous and contact intermittent bleeding; multiple biopsies were performed 3. Food residue in the gastric body 4. The duodenal mucosa showed no abnormalities in the duodenal bulb, 1st part duodenum, and 2nd part duodenum RECOMMENDATIONS: 1. Await biopsy results 2. Start Clear liquid diet for 2 Day(s) 3. Start Proton pump inhibitor twice daily - 30 minutes before a meal 4. Surgery consult for possible gastrectomy REPEAT EXAM: Mohinder Ramirez MD eSigned: Mohinder Ramirez MD 04/04/2019 9:03 AM cc: PATIENT NAME: Yohan Beckwith MR#: [id number]
--- NOTE | 2019-04-04 09:53 | PROGRESS NOTE ---
DATE: 04/04/2019 SUBJECTIVE: Patient reports feeling fine. No dizziness. He reported last night he had big black stool that looks like melena. Denies any other complaints. OBJECTIVE: Vital Signs: Temperature 97.7 degrees, heart rate 70, respiratory rate 18, blood pressure 128/46, O2 saturation 97% on room air. General examination: This is a chronically ill- appearing, 74-year-old male, lying in bed in no acute distress. Cardiovascular exam: S1, S2 heard. No murmurs, gallops, or rubs. Regular rate and rhythm. Respiratory exam: Clear bilaterally to auscultation. No work of breathing or using accessory muscles. Abdomen: Soft, nontender to palpation. Bowel sounds present. No organomegaly. Extremities: No clubbing, cyanosis, or edema. Peripheral pulses present in both legs. Neurological exam: Patient alert and oriented x3. Moves 4 extremities. LABORATORY DATA: Hemoglobin was 7.9. So far until now he has received 3 units of blood. ASSESSMENT AND PLAN: 1. Gastrointestinal bleeding. The patient went yesterday for endoscopy. Apparently there was still food in the stomach. He has been placed on nothing by mouth since yesterday at 6 p.m. He has been given also Reglan, so we hope that he can get that procedure done today properly. At this point, we will continue to monitor this patient on the floor. 2. Anemia of blood loss. Patient had an episode of melena yesterday, although the hemoglobin is still stable. We will continue to monitor this patient closely with complete blood count daily. 3. Non-Hodgkin lymphoma with gastric involvement. Dr. Luna is on board. He has been consulted. 4. Diabetes mellitus type 2. We will continue with the sliding scale insulin. Accu-Chek before meals and also at bedtime. 5. Disposition: We will see what the esophagogastroduodenoscopy shows. Will keep checking complete blood count daily. cc: Clayton Griffin MD
--- NOTE | 2019-04-04 12:28 | GENERAL SURGERY CONSULTATION ---
DATE: 04/04/2019 REQUESTING PHYSICIAN: Dr. Ramirez. REASON FOR CONSULTATION: Bleeding gastric mass. HISTORY OF PRESENT ILLNESS: A 74-year-old gentleman with a history of non-Hodgkin lymphoma and a gastric lymphoma with a gastric mass, who presented with a GI bleed. He had been previously seen by Dr. Luna, been getting chemotherapy for this. Apparently started bleeding and he came in after his hematocrit was relatively low and his hemoglobin was 6.5. He underwent an EGD by Dr. Ramirez, found a bleeding mass which is being described as in the gastric antrum. I discussed the case with both Dr. Luna and Dr. Ramirez. PAST MEDICAL HISTORY: 1. Non-Hodgkin lymphoma with diffuse stomach involvement. 2. Diabetes mellitus. 3. Hypercholesterolemia. PAST SURGICAL HISTORY: Appendectomy, partial tongue resection, cataract, left retinal detachment surgery. SOCIAL HISTORY: Former smoker. ALLERGIES: None. HOME MEDICATIONS: Reviewed. FAMILY HISTORY: Reviewed with patient, noncontributory. REVIEW OF SYSTEMS: A full 10 point review of systems obtained, negative except as those specified in the HPI. PHYSICAL EXAMINATION: Vital Signs: Patient is currently afebrile. His vital signs are stable. General: No acute distress. male, looks stated age. HEENT: Normocephalic, atraumatic. Pupils equal, round, reactive to light. Mucous membranes moist. Oropharynx benign. Neck: Supple. Trachea midline. Cardiovascular: Regular rate and rhythm. Lungs: Grossly clear. Abdomen: Soft, nontender, nondistended. Extremities: Moves all extremities. Neurologic: Grossly intact. Skin: No signs of jaundice. Vascular: All extremities perfused. LABORATORY DATA: Most recent hematocrit is 24.5, hemoglobin 7.9, platelet count 131,000. ASSESSMENT AND PLAN: A 74-year-old gentleman with a bleeding gastric mass. Bleeding gastric mass. At this time, discussed the case with both Dr. Ramirez and Dr. Luna. We will try to manage him nonoperatively for right now. If he does ultimately require surgery, could do a partial gastrectomy on him, but would like to try to see if there are other means by which we can resuscitate him and treat this bleeding for right now. Discussed this with the patient, he is in agreement. cc: Lloyd Kim MD
[2019-04-04 13:04] LABS: BASO# 0.02 X1000 (0.0-0.2); BASO% 0.3 % (0.0-0.8); EOS# 0.04 X1000 (0.0-0.7); EOS% 0.6 % (0.0-10.0); HEMATOCRIT 24.1 % (42.0-52.0); HEMOGLOBIN 7.9 g/dL (14.0-18.0); LYMPH% 2.8 % (20.5-51.1); MCH 30.5 PG (27-31); MCHC 32.8 g/dL (33-37); MCV 93.1 FL (81-99); MONO# 0.35 X1000 (0.11-0.59); MONO% 4.9 % (1.7-9.3); MPV 10.8 FL (7.4-10.4); NEUT# 6.58 X1000 (1.4-6.5); NEUT% 91.4 % (42.2-75.2); PLT 135 X1000 (130-400); RBC 2.59 XMIL (4.7-6.1); RDW 16.4 % (11.5-14.5); WBC 7.19 X1000 (4.8-10.8)
[2019-04-04 13:19] LABS: BANDS 2 % (0-1); LYMPHS 8 % (21-51); SEGS 90 % (42-75)
[2019-04-04] MEDS: SODIUM CHLORIDE 0.9% INJ SCH (17:40)
[2019-04-04 18:48] LABS: HEMATOCRIT 26.1 % (42.0-52.0); HEMOGLOBIN 8.5 g/dL (14.0-18.0); MCH 30.2 PG (27-31); MCHC 32.6 g/dL (33-37); MCV 92.9 FL (81-99); MPV 10.7 FL (7.4-10.4); RBC 2.81 XMIL (4.7-6.1); RDW 16.6 % (11.5-14.5); WBC 9.09 X1000 (4.8-10.8)
[2019-04-04 20:40] LABS: HEMATOCRIT 24.8 % (42.0-52.0); HEMOGLOBIN 8.1 g/dL (14.0-18.0); MCH 30.8 PG (27-31); MCHC 32.7 g/dL (33-37); MCV 94.3 FL (81-99); MPV 11.5 FL (7.4-10.4); RBC 2.63 XMIL (4.7-6.1); RDW 16.7 % (11.5-14.5); WBC 9.76 X1000 (4.8-10.8)
[2019-04-04] MEDS: AMBIEN PO PRN (22:23)
[2019-04-04] MEDS: ULTRAM PO PRN (22:23)
[2019-04-05 02:52] LABS: HEMATOCRIT 22.3 % (42.0-52.0); HEMOGLOBIN 7.2 g/dL (14.0-18.0); MCH 30.8 PG (27-31); MCHC 32.3 g/dL (33-37); MCV 95.3 FL (81-99); MPV 11.4 FL (7.4-10.4); RBC 2.34 XMIL (4.7-6.1); RDW 16.9 % (11.5-14.5); WBC 5.68 X1000 (4.8-10.8)
[2019-04-05] MEDS: NS 1,000 ML IV SCH ×2 (03:53→21:38)
[2019-04-05] MEDS: REGLAN IV SCH ×3 (05:43→18:32)
[2019-04-05] MEDS: NEXIUM IV SCH ×2 (05:43→18:33)
[2019-04-05] MEDS: HUMALOG SUBQ SCH ×4 (06:07→21:40)
--- NOTE | 2019-04-05 07:14 | GENERAL SURGERY PROGRESS NOTE ---
DATE: 04/05/2019 SUBJECTIVE: Patient seems to be doing okay. OBJECTIVE: Vital Signs: Patient is currently afebrile. His vital signs are stable. General: No acute distress. HEENT: Normocephalic, atraumatic. Pupils equal, round, reactive to light. Mucous membranes moist. Oropharynx benign. Neck: Supple. Trachea midline. Cardiovascular: Regular rate and rhythm. Lungs: Grossly clear. Abdomen: Soft, nontender, nondistended. Extremities: Moves all extremities. Neurologic: Grossly intact. Skin: No signs of jaundice. Vascular: All extremities perfused. LABORATORY: Most recent hematocrit shows a hematocrit of 22, which is down from 24. ASSESSMENT/PLAN: A 74-year-old with bleeding gastric mass. #1 bleeding gastric mass. At this time, we will repeat the H and H at 10 o'clock to see if it is trending down still. Would recommend to continue to try to resuscitate him, give him blood products and hold surgery as a last resort. We will continue to follow. cc: Lloyd Kim MD
[2019-04-05 08:37] LABS: HEMATOCRIT 26.5 % (42.0-52.0); HEMOGLOBIN 8.4 g/dL (14.0-18.0); MCH 29.8 PG (27-31); MCHC 31.7 g/dL (33-37); MPV 11.5 FL (7.4-10.4); RBC 2.82 XMIL (4.7-6.1); RDW 16.5 % (11.5-14.5); WBC 5.02 X1000 (4.8-10.8)
[2019-04-05 10:17] LABS: BASO# 0.02 X1000 (0.0-0.2); BASO% 0.3 % (0.0-0.8); EOS# 0.07 X1000 (0.0-0.7); EOS% 1.2 % (0.0-10.0); HEMATOCRIT 29.6 % (42.0-52.0); HEMOGLOBIN 9.6 g/dL (14.0-18.0); LYMPH# 0.19 X1000 (1.2-3.4); LYMPH% 3.3 % (20.5-51.1); MCH 30.1 PG (27-31); MCHC 32.4 g/dL (33-37); MCV 92.8 FL (81-99); MONO% 3.5 % (1.7-9.3); MPV 11.2 FL (7.4-10.4); NEUT# 5.28 X1000 (1.4-6.5); NEUT% 91.7 % (42.2-75.2); PLT 146 X1000 (130-400); RBC 3.19 XMIL (4.7-6.1); RDW 16.8 % (11.5-14.5); WBC 5.76 X1000 (4.8-10.8)
[2019-04-05 10:32] LABS: CALCIUM 8.5 mg/dL (8.8-10.2); CREATININE 1.4 mg/dL (0.7-1.2); POTASSIUM 3.7 mmol/L (3.5-5.1)
--- NOTE | 2019-04-05 11:22 | PROGRESS NOTE ---
DATE: 04/05/2019 SUBJECTIVE: The patient reports feeling fine. No melena or hematemesis noted. OBJECTIVE: Vital Signs: Temperature 98.4 degrees, heart rate 74, respiratory rate 16, blood pressure 121/46, O2 saturation 99% on room air. General: This is a chronically ill-appearing and frail 74-year-old male lying in bed in no acute distress. Cardiovascular: S1, S2 heard. No murmurs, gallops, or rubs. Regular rate and rhythm. Respiratory: Clear bilaterally to auscultation. No work of breathing or using accessory muscles. Abdomen: Soft, nontender to palpation. Bowel sounds present. No organomegaly. Extremities: No clubbing, cyanosis, or edema. Peripheral pulses present in both legs. Neurological: Patient is alert, oriented x3. Moves 4 extremities. LABORATORY DATA: Hemoglobin, the last that we have is 9.6 with 1.4 creatinine. ASSESSMENT AND PLAN: 1. Gastrointestinal bleeding. The patient went for endoscopy yesterday and the report said that they found out a circumferential mass in the incisura, in the gastric antrum and in prepyloric region stomach. No issues with the duodenum. At this time, we have consulted General Surgery, but they think surgery approach will be the last resource for him. In that regard, the patient has received already yesterday and today morning, radiation therapy. He is going to receive 1 more radiotherapy next Monday. We are checking hemoglobin and hematocrit every 6 hours. We are going to transfuse as needed. The last one showed good improvement. At this point, will continue to monitor. Also Oncology has been involved in his care. 2. Anemia of blood loss. As we mentioned before, hemoglobin is stable. Hemoglobin is actually 9.6 today. Will continue to monitor. 3. Non-Hodgkin's lymphoma with gastric involvement. Dr. Jeremy cisse. 4. Diabetes mellitus type 2. Will continue with sliding scale insulin and Accu- Chek before meals and also at bedtime. DISPOSITION: At this point will continue to monitor this patient closely. Will monitor for any signs of bleeding. cc: Clayton Griffin MD [facility]
[2019-04-05 13:39] LABS: HEMATOCRIT 27.8 % (42.0-52.0); HEMOGLOBIN 9.1 g/dL (14.0-18.0)
[2019-04-05 17:14] LABS: HEMATOCRIT 27.4 % (42.0-52.0)
[2019-04-05] MEDS: SODIUM CHLORIDE 0.9% INJ SCH (18:33)
[2019-04-05 21:30] LABS: HEMATOCRIT 27.3 % (42.0-52.0); HEMOGLOBIN 8.9 g/dL (14.0-18.0)
[2019-04-05] MEDS: ULTRAM PO PRN (21:38)
[2019-04-05] MEDS: AMBIEN PO PRN (21:39)
--- NOTE | 2019-04-05 23:26 | PROVIDER PROGRESS NOTE ---
Progress Note S: No acute overnight events. Patient denies N/V/F, CP, SOB, abdominal pain. He continues to have melena for which he received radiation today. O: Last Vital Signs Temp 97.9 F 04/05/19 19:33 Pulse 66 04/05/19 19:33 Resp 20 04/05/19 19:33 BP 138/58 04/05/19 19:33 Pulse Ox 97 04/05/19 19:33 Height 6 ft Weight 142 lb 6.4 oz GEN: awake, alert, NAD HEENT: anicteric, MMM NECK: supple, no JVD CV: RRR, no murmurs PULM: CTAB, no wheezing ABD: soft NT/ND, NABS EXT: no cce NEURO: nonfocal EGD 04/04/2019 ESOPHAGUS: The mucosa of the esophagus appeared normal. STOMACH: A half circumferential ulcerated mass with friable surfaces was found at the incisura, in the gastric antrum,and prepyloric region stomach. Having spontaneous and contact intermittent bleeding. Multiple biopsies were performed using cold forceps. Sample sent for histology. There was a large amount of residual food in the gastric body. Due to the residual food, complete mucosal examination could not be performed. DUODENUM: The duodenal mucosa showed no abnormalities in the duodenal bulb, 1st part duodenum, and 2nd part duodenum. A/P: Mr. Yohan Beckwith is a 74-year-old gentleman with non-Hodgkin's gastric lymphoma and chronic iron deficiency anemia who presents with symptomatic anemia in the setting of UGIB from known bleeding gastric mass found on EGD. Patient was started on palliative radiation today. Seen by surgery who recommended non- surgical mgmt. Bleeding mass non amendable to endoscopic therapy. Transfused 1 unit of pRBC today. On clears. # UGIB: 2/2 to gastric mass: continue PPI BID, can transition to PO; on clear liquid diet; palliative radiation per oncology; surgery following # Non-Hodgkin's gastric lymphoma: mgmt per oncology # Anemia: trending H/H transfuse prn for goal hgb 7-8 Will sign off. Please call with questions or concerns.
[2019-04-06] MEDS: REGLAN IV SCH ×5 (00:18→22:47)
[2019-04-06] MEDS: NEXIUM IV SCH ×2 (05:42→17:49)
[2019-04-06] MEDS: HUMALOG SUBQ SCH ×4 (06:07→20:45)
[2019-04-06 07:11] LABS: HEMATOCRIT 26.5 % (42.0-52.0); HEMOGLOBIN 8.5 g/dL (14.0-18.0); MCH 30.8 PG (27-31); MCHC 32.1 g/dL (33-37); MPV 11.5 FL (7.4-10.4); RBC 2.76 XMIL (4.7-6.1); RDW 17.5 % (11.5-14.5); WBC 4.97 X1000 (4.8-10.8)
[2019-04-06 07:31] LABS: CREATININE 1.2 mg/dL (0.7-1.2); POTASSIUM 3.3 mmol/L (3.5-5.1)
[2019-04-06 07:32] LABS: CALCIUM 7.9 mg/dL (8.8-10.2)
[2019-04-06] MEDS ORDERED: KLOR-CON PO ONE (10:27)
[2019-04-06] MEDS: NS 1,000 ML IV SCH (11:35)
--- NOTE | 2019-04-06 14:19 | GENERAL SURGERY PROGRESS NOTE ---
DATE: 04/06/2019 SUBJECTIVE: The patient denies abdominal pain, nausea, or vomiting. He does report some black stool. OBJECTIVE: He is afebrile. Vital signs are stable.General: He is awake, alert, oriented x3. No acute distress. Gastrointestinal: Soft, nontender, nondistended. LABORATORY: Hemoglobin 8.5, hematocrit 26.5. ASSESSMENT AND PLAN: A 74-year-old male with gastric mass that has been intermittently bleeding. It is felt to be lymphoma and as I understand he is undergoing radiation treatment. We will continue monitoring. There is no need for acute surgical intervention at this time but we will keep a close eye on him. cc: Raj Baker MD
--- NOTE | 2019-04-06 15:11 | PROGRESS NOTE ---
DATE: 04/06/2019 SUBJECTIVE: Patient has no major complaints. He is not having any bloody bowel movements but they are still dark. OBJECTIVE: Blood pressure 134/79, heart rate of 106, respiratory rate of 15, temperature 98.5 degrees.Cardiovascular: Regular rate and rhythm. Pulmonary: Bilateral breath sounds. Clear to auscultation. GI: Was soft, nontender, nondistended. Bowel sounds are positive. White count 4, hemoglobin and hematocrit 8 and 26, platelets 121,000. Potassium 3.1, creatinine 1.2. PROBLEM LIST: 1. Gastrointestinal bleed from a stomach mass. Surgery has been consulted but they are holding off on any acute episode. We will continue XRT. We will continue PPI. We will continue following H and H which has been stable. 2. Anemia secondary to blood loss. Hemoglobin and hematocrit have dropped a bit to 8.5 and 26, actually it has trended downwards but it is the same as it was yesterday morning and had gone up and then back down. 3. Thrombocytopenia which has been kind of a persistent issue. Seems to be doing okay from that standpoint. 4. Disposition is pending. I am assuming we are watching him till XRT on Monday associated with his non-Hodgkin's lymphoma. 5. Type 2 diabetes appears to be stable. We may advance his diet soon. We will continue to follow. I am going to go ahead and try full liquid diet tomorrow. We will continue to monitor. cc: Jonatan Amado MD
[2019-04-06] MEDS: SODIUM CHLORIDE 0.9% INJ SCH (17:49)
[2019-04-06] MEDS: ULTRAM PO PRN (22:32)
[2019-04-06] MEDS: AMBIEN PO PRN (22:33)
[2019-04-06] MEDS: LOPRESSOR PO SCH (22:33)
[2019-04-07] MEDS: NS 1,000 ML IV SCH (04:13)
[2019-04-07] MEDS: NEXIUM IV SCH ×2 (05:02→17:17)
[2019-04-07] MEDS: REGLAN IV SCH ×4 (05:02→21:49)
[2019-04-07] MEDS: HUMALOG SUBQ SCH ×4 (06:18→21:34)
[2019-04-07 07:47] LABS: HEMATOCRIT 25.5 % (42.0-52.0); HEMOGLOBIN 8.2 g/dL (14.0-18.0); MCH 31.2 PG (27-31); MCHC 32.2 g/dL (33-37); MPV 11.7 FL (7.4-10.4); RBC 2.63 XMIL (4.7-6.1); RDW 17.5 % (11.5-14.5); WBC 4.2 X1000 (4.8-10.8)
[2019-04-07 08:12] LABS: CALCIUM 7.7 mg/dL (8.8-10.2); CREATININE 1.2 mg/dL (0.7-1.2); POTASSIUM 3.9 mmol/L (3.5-5.1)
[2019-04-07] MEDS: LOPRESSOR PO SCH ×2 (10:30→21:45)
[2019-04-07] MEDS: CENTRUM SILVER PO SCH (11:57)
--- NOTE | 2019-04-07 13:04 | GENERAL SURGERY PROGRESS NOTE ---
DATE: 04/07/2019 SUBJECTIVE: The patient has no new complaints. No bloody emesis. He says he had a brown stool, not a black stool. OBJECTIVE: He is afebrile. Vital signs are stable.General: He is awake, alert, oriented x3. No acute distress. Gastrointestinal: Soft, nontender, nondistended. LABORATORY: Hemoglobin 8.2, hematocrit 25.5. ASSESSMENT AND PLAN: A 74-year-old male with gastric lymphoma. It has been intermittently bleeding. Currently, he does not appear to be having acute bleeding. We will continue observation. cc: Raj Baker MD
[2019-04-07] MEDS: SODIUM CHLORIDE 0.9% INJ SCH (17:17)
--- NOTE | 2019-04-07 19:23 | PROGRESS NOTE ---
DATE: 04/07/2019 SUBJECTIVE: The patient looks well. No major complaints. No bleeding. No abdominal pain. OBJECTIVE: Blood pressure 148/71, heart rate 58, respiratory 16, temperature 98.4 degrees, 95% on room air.Cardiovascular: Regular rate and rhythm. Pulmonary: Bilateral breath sounds clear to auscultation. GI: Soft, nontender, nondistended. Bowel sounds are positive. LABORATORY DATA: White count 4, hemoglobin and hematocrit 8 and 25, platelets 126,000, bicarb 17. PROBLEM LIST: 1. Gastrointestinal bleed, stomach mass. We will continue treatment and follow. Continue PPI. He is due for XRT tomorrow. 2. Anemia. Hemoglobin and hematocrit have dropped a little bit but again is stable. 3. Thrombocytopenia that is also stabilized, has dropped a little bit but not significantly. DISPOSITION: Pending clinical status but I anticipate if hemoglobin and hematocrit is stable we may be able to get him home soon. cc: Jonatan Amado MD
[2019-04-07] MEDS: ULTRAM PO PRN (21:34)
[2019-04-07] MEDS: AMBIEN PO PRN (21:49)
[2019-04-08] MEDS: REGLAN IV SCH ×3 (00:29→13:07)
[2019-04-08] MEDS: HUMALOG SUBQ SCH ×2 (06:15→13:02)
[2019-04-08] MEDS: NEXIUM IV SCH (06:16)
[2019-04-08] MEDS: SODIUM CHLORIDE 0.9% INJ SCH (06:16)
--- NOTE | 2019-04-08 06:31 | GENERAL SURGERY PROGRESS NOTE ---
DATE: 04/08/2019 SUBJECTIVE: Patient seems to be doing okay. OBJECTIVE: Vital Signs: Patient is currently afebrile and his vital signs are stable. General: No acute distress. HEENT: Normocephalic, atraumatic. Pupils equal, round, reactive to light. Mucous membranes moist. Oropharynx benign. Neck: Supple. Trachea midline. Cardiovascular: Regular rate and rhythm. Lungs: Grossly clear. Abdomen: Soft, nontender, nondistended. Extremities: Moves all extremities. Neurologic: Grossly intact. Skin: No signs of jaundice. Vascular: All extremities perfused. LABORATORY: Hematocrit most recently was measured at 25.5. ASSESSMENT AND PLAN: A 74-year-old gentleman with a bleeding gastric lymphoma. Bleeding gastric lymphoma. At this time, continue supportive care. We do have pathology pending on the re-biopsy. There is some possibility of getting radiation to the area and would like to try to hold off on any surgical intervention until absolutely necessary. cc: Lloyd Kim MD
[2019-04-08 07:22] LABS: AGAP 10; BUN 14 mg/dL (8-22); CALCIUM 7.8 mg/dL (8.8-10.2); CHLORIDE 109 mmol/L (98-107); COSMO 274; CREATININE 1.1 mg/dL (0.7-1.2); ESTIMATED GFR > 60; GLUCOSE 88 mg/dL (70-104); POTASSIUM 3.8 mmol/L (3.5-5.1); SODIUM 137 mmol/L (136-145); TCO2 18 mmol/L (25-35)
[2019-04-08 07:46] LABS: HEMOGLOBIN 8.5 g/dL (14.0-18.0); MCH 30.4 PG (27-31); MCHC 31.5 g/dL (33-37); MCV 96.4 FL (81-99); MPV 11.5 FL (7.4-10.4); RBC 2.8 XMIL (4.7-6.1); RDW 17.5 % (11.5-14.5); WBC 4.21 X1000 (4.8-10.8)
[2019-04-08] MEDS: LOPRESSOR PO SCH (08:31)
[2019-04-08] MEDS: CENTRUM SILVER PO SCH (08:31)
[2019-04-08 11:37] VITALS: BP 102/48
--- NOTE | 2019-04-08 13:30 | HEMO/ONC PROGRESS NOTE ---
DATE: 04/08/2019 SUBJECTIVE: The patient is awake, alert, sitting up in bed eating breakfast this morning. He denies any pain. He tells me he has been receiving radiation treatments without any complication. He states his appetite is good. There has been no clinical signs of bleeding such as melena or black or tarry stools. OBJECTIVE: Vital Signs: Temperature 98.1 degrees, pulse rate 79, respiratory rate 16, blood pressure 113/79, O2 saturation 98% on room air. He is in 0/10 pain. General: Chronically ill elderly appearing male in no acute distress. Cardiovascular: Normal S1 and S2. Regular rhythm. No rubs, murmurs or gallops appreciated. Respiratory: Bilateral breath sounds. Clear to auscultation. Abdominal: Soft, nontender, nondistended. Bowel sounds are positive. Neurological: Awake, alert, oriented x3. No focal motor deficits. Moves all 4 extremities without difficulty. LABORATORY: WBC 4.21, hemoglobin 8.5, hematocrit 27.0, platelet count 126,000. Creatinine 1.1, calcium 7.8. ASSESSMENT: 1. Non-Hodgkin lymphoma with gastric mass. 2. Gastrointestinal bleed due to gastric mass. 3. Anemia. 4. Thrombocytopenia, resolved. PLAN: The patient is possibly discharge home today. We will follow up in the office him this week for repeat CBC and possible IV iron infusion due to his recent GI bleed. Continue radiation outpatient. The patient is aware of this appointment. We will continue to follow him closely. Dictated by FRANCISCA Pradhan for Wili Luna MD cc: Wili Luna MD [facility]
--- NOTE | 2019-04-08 15:45 | DISCHARGE SUMMARY ---
ADMISSION DATE: 04/02/2019 DISCHARGE DATE: 04/08/2019 DISCHARGE DIAGNOSES: GI bleed related to a gastric mass. CONSULTATIONS: 1. Dr. Wood of GI. 2. Dr. Kim Surgery. 3. Dr. Luna hematology/oncology. PROCEDURES: 1. Endoscopy 04/03/[address] Wood. 2. EGD per Dr. Ramirez. HISTORY: In any case, patient was admitted, a 74-year-old male for GI bleeding. Hemoglobin was 6.5. He has a non-Hodgkin's lymphoma which is gastric. He was admitted from Dr. Luna's office. There were plans for EGD per Dr. Ramirez. The patient was transfused. His EGD on the really just showed a lot of retained food. Repeat EGD on the showed a half circumferential mass with spontaneous and contact intermittent bleeding. Biopsies were performed. He was placed on PPI, and they consulted surgery for gastrectomy. The patient is undergoing treatment. Surgery evaluated the patient, but did not pursue surgical resection. They were going to try other measures per GI and Hematology/Oncology. Hemoglobin and hematocrit was stable. All told he received 2 units. I think he received 4 units of blood. His hemoglobin and hematocrit has been relatively stable. The patient continued to be managed nonsurgically. He was due for XRT. His hemoglobin and hematocrit dropped to a low of 8 and 25, but is 8.5 and 27 on the day of discharge. The patient stabilized. He was tolerating p.o., and had no further bleeding. He was felt to be stable for discharge. Iron infusion per Dr. Luna. Surgery did not have any significant recommendations as far as any surgical need. The patient was discharged in stable condition. DISCHARGE MEDICATIONS: 1. Vitamin B12 daily. 2. Metoprolol 25 b.i.d. 3. Multivitamin daily. 4. NicoDerm patch as needed. 5. Pepin p.r.n. 6. Phenergan 25 q.4 hours to 6 h. p.r.n. 7. Ultram 50 q.6 to 8 p.r.n. pain. 8. Zinc 100 daily. 9. Prilosec 40 b.i.d. 10. Allopurinol 200 daily. DISCHARGE CONDITION: Stable. He will need to follow up with Dr. Luna in 1 week to make sure that he follows up with his blood counts. Told to avoid NSAIDs. Pursue soft diet. TIME SPENT: 32 minute discharge. cc: MD Dr. Jeremy Porras Dr., Dr., MD
== END 2019-04-08 15:39 | disposition home or self-care (01) | DRG 841 ==
LOC: SUATTDRO 16:23 → DIRADM 16:23 → 3N 16:37
PROVIDERS: ATTEND Internal Medicine

== ENCOUNTER 2019-05-06 12:12 | Inpatient (IN) ==
--- NOTE | 2019-05-06 12:36 | PROVIDER DOCUMENTATION ---
HPI-General Adult - General Chief Complaint: Altered Mental Status Stated Complaint: AMS Time Seen by Provider: 05/06/19 12:19 Source: patient, family, EMS Allergies/Adverse Reactions: Patient Allergies Allergy/AdvReac Type Severity Reaction Status Date / Time No Known Allergies Allergy Verified 11/22/18 18:25 Home Medications: Home Medication List Medication Instructions Recorded Confirmed Last Taken Type Tramadol [Ultram] 50 mg PO Q6-8H PRN PRN MDD 200 mg 02/10/13 05/06/19 04/02/19 09:00 History Promethazine [Phenergan] 25 mg PO Q4-6H PRN PRN 11/22/18 05/06/19 04/02/19 09:00 History Metoprolol Tartrate 25 mg PO BID 04/03/19 05/06/19 04/02/19 21:00 History Multivitamin with Minerals 1 ea PO DAILY 04/03/19 05/06/19 04/02/19 09:00 History [Multi-Vit 55 Plus] Vitamin B Complex/Folic Acid 0.4 mg PO DAILY 04/03/19 05/06/19 04/02/19 09:00 History [B-Complex 100 Tablet] Zinc 100 mg PO DAILY 04/03/19 05/06/19 04/02/19 09:00 History Omeprazole [Prilosec] 40 mg PO BID #60 capsule. 04/08/19 05/06/19 Unknown Rx Sucralfate [Carafate] 1 gm PO 405/06/19 05/06/19 Unknown History - History of Present Illness -Gen Adult Nature of Presenting Problems: 74 yr old M with recent diagnosis of stomach cancer, on radiation and chemotherapy, presents via EMS with complaint of altered mental status after a fall on Monday. His states that he fell out of bed on Monday, and since then, has been confused, with some slurring of speech. No fever reported, decreased PO intake. The patient is awake, alert, responds to commands. He denies chest pain. Location of Pain/Injury: reports: none Pain Radiation: reports: no radiation Onset/Duration: reports: 2 days ago Timing: reports: still present Context/Activities at Onset: reports: none Modifying Factors: improves with: nothing Associated Symptoms: reports: denies symptoms Similar Symptoms Previously?: No Review of Systems - Adult - REVIEW OF SYSTEMS - ADULT ROS:: ROS per family ( states speech doesn't sound as clear as it normally does) Constitutional: reports: no symptoms reported Eyes: reports: no symptoms reported Ears, Nose, Mouth & Throat: reports: no symptoms reported Cardiovascular: reports: no symptoms reported Respiratory: reports: cough, shortness of breath Gastrointestinal: reports: no symptoms reported Genitourinary: reports: no symptoms reported Musculoskeletal: reports: no symptoms reported Neurological: reports: slurred speech Psychiatric: reports: no symptoms reported Endocrine: reports: no symptoms reported Past History - Adult - PAST MEDICAL HISTORY-ADULT Review of Records: reports: Nursing Assessment Review Major Childhood Illnesses: reports: denies history Cardiovascular: reports: HTN Endocrine/Immune: reports: cancer (stomach) - IMMUNIZATION STATUS Childhood Immunizations: See Nurse Assessment Flu Vaccine: See Nurse Assessment - FAMILY HISTORY Family History: reviewed, not pertinent Physical Exam-General - PHYSICAL EXAM-ADULT Initial Vital Signs Reviewed: Yes - CONSTITUTIONAL General Appearance: alert, mild distress, cachetic - EYES Eyes: PERRL/EOMI - HEAD, EARS, NOSE, MOUTH & THROAT HENMT: normocephalic/atraumatic - RESPIRATORY Respiratory: chest non-tender, lungs clear, normal breath sounds - CARDIOVASCULAR Cardiovascular: regular rate, rhythm - GASTROINTESTINAL (ABDOMEN) Abdominal Exam: normal bowel sounds, non tender, soft - MUSCULOSKELETAL Extremity: non-tender, no pedal edema, no calf tenderness Progress - PLAN OF CARE/RESULTS Progress/Plan/Lab Results: Vital Signs - 8 hr 05/06/19 12:14 Temperature 97.7 F Pulse Rate 72 Respiratory Rate 19 Blood Pressure 110/69 O2 Sat by Pulse Oximetry 97 Orders Category Date Time Status Cardiac Monitoring DIRECTED Care 05/06/19 12:20 Active CHEST-1 VIEW [RAD] Stat Exams 05/06/19 12:[address] HEAD W/O CONTRAST [CT] Stat Exams 05/06/19 12:21 Ordered CBC WITH DIFF [HEME] Stat Lab 05/06/19 12:29 Results CK PROFILE [SP CHEM] Stat Lab 05/06/19 12:29 Received COMPREHENSIVE METABOLIC PANEL [CHEM] Stat Lab 05/06/19 12:29 Received PROTIME WITH INR [COAG] Stat Lab 05/06/19 12:29 Received PTT [COAG] Stat Lab 05/06/19 12:29 Received TROPONIN T Stat Lab 05/06/19 12:29 Received URINALYSIS W/POSS RFLX CULT [URINALYSIS] Stat Lab 05/06/19 12:20 Uncollected EKG [EKG] Stat Ther 05/06/19 12:20 Ordered CXR concerning for pulm edema vs pneumonia, elevated WBC; findings discussed with pt's Result Diagrams: 05/06/19 12:29 05/06/19 12:29 - EKG 1 Time of EKG reading by physician:: 13:27 EKG Read and Signed by:: Yonathan Stephen EKG Interpretation (*Must complete 3 of following elements*): Abnormal Rate: 71 QRS: RBB Comments: undetermined rhythm, septal infarct, RBBB - XRAY 1 XRAY Study: Chest Impression: Abnormal XRAY Interpretation: pneumonia vs pulm edema - CT/MRI 1 CT Study: Head Impression: Abnormal CT Results: chronic changes, pansinusitis, no acute findings - CONSULTS/PCP/HOSPITALIST Notification #1 *Consult/PCP/Hospitalist*: Dr. Kramer/Dot Time Discussed: 14:53 Consult Disposition: Admit Departure - Departure Date of Disposition Decision: 05/06/19 Time of Disposition Decision: 15:03 DIAGNOSIS: Hypernatremia, Pneumonia, Altered mental status Disposition: ADMITTED INPATIENT 09 Certified Medical Emergency: Emergent Condition: Serious - Critical Care Note This patient required my direct & personal management of CC.: No Attestation - Physician/ KATHY Attestation Patient care was provided by Advanced Practice Provider:: No The physician spent face to face time with patient:: Yes Advanced Practice Provider documentation review:: Supervising physician onsite and consulted in the evaluation and care of this patient. The physician did have a face to face encounter with the patient.
[2019-05-06 12:49] LABS: BASO# 0.02 X1000 (0.0-0.2); BASO% 0.2 % (0.0-0.8); HEMATOCRIT 36.9 % (42.0-52.0); HEMOGLOBIN 11.9 g/dL (14.0-18.0); IMM GRAN% 0.9 % (0.0-0.5); INR 1.02; LYMPH# 0.44 X1000 (1.2-3.4); LYMPH% 3.9 % (20.5-51.1); MCH 31.3 PG (27-31); MCHC 32.2 g/dL (33-37); MCV 97.1 FL (81-99); MONO% 4.4 % (1.7-9.3); MPV 12.4 FL (7.4-10.4); NEUT# 10.36 X1000 (1.4-6.5); NEUT% 90.6 % (42.2-75.2); PLT 107 X1000 (130-400); PROTIME 13.5 Seconds (11.0-16.0); RDW 18.7 % (11.5-14.5); WBC 11.42 X1000 (4.8-10.8)
[2019-05-06 12:50] LABS: PTT 30.4 Seconds (22.3-41.8)
[2019-05-06 13:02] LABS: ALB/GLOB RATIO 1.4; ALBUMIN 3.5 g/dL (3.5-5.0); CREATININE 1.8 mg/dL (0.7-1.2); TOTAL BILIRUBIN 0.54 mg/dL (0.20-1.00)
[2019-05-06 13:17] LABS: URINE SOURCE CATH
[2019-05-06 13:21] LABS: LYMPHS 1 % (21-51); MONO 4 % (1-9); SEGS 95 % (42-75)
[2019-05-06 13:37] LABS: BILIRUBIN URINE NEGATIVE (NEGATIVE); BLOOD URINE TRACE (NEGATIVE); COLOR YELLOW; GLUCOSE URINE NEGATIVE (NEGATIVE); KETONE URINE NEGATIVE (NEGATIVE); LEUKOCYTES URINE NEGATIVE (NEGATIVE); NITRITE URINE NEGATIVE (NEGATIVE); PROTEIN URINE 30 mg/dL (NEGATIVE); SP GRAVITY URINE 1.022; TURBIDITY URINE HAZY (CLEAR); UR EPITHELIAL CELLS >10 /HPF (<10); URINE BACTERIA NEGATIVE /HPF; URINE RBC <10 /HPF (<10); URINE WBC <10 /HPF (<10); UROBILINOGEN URINE NORMAL (NORMAL)
--- NOTE | 2019-05-06 13:53 | Diag Imaging Result Doc PS360 ---
EXAM: CHEST-1 VIEW 05/06/2019 HISTORY: AMS TECHNIQUE: AP chest at 1347 COMMENT: There are no previous studies. There is diffuse interstitial and some alveolar opacity particularly the latter in the perihilar region on the right. The heart size does not appear to be enlarged. The possibility of right paratracheal and hilar adenopathy cannot be excluded. IMPRESSION: Pulmonary edema and/or pneumonia. Right hilar and paratracheal adenopathy. Electronically signed by Sukumar Alvarez 05/06/2019 1:51 PM
--- NOTE | 2019-05-06 14:06 | Diag Imaging Result Doc PS360 ---
EXAM: CT HEAD W/O CONTRAST 05/06/2019 HISTORY: AMS TECHNIQUE: This exam was performed using automated exposure control, adjustment of mA or kV according to patient size, and/or use of iterative reconstruction technique. COMMENT: There is mucosal thickening in both sphenoid sinuses and multiple ethmoid air cells. There is also thickening in the frontal sinuses bilaterally. Both maxillary sinuses are almost completely opacified. The calvarium is intact. There are patchy areas of lucency in the white matter of both hemispheres particularly around the frontal horns. There is no evidence of mass effect bleed or abnormal extra-axial fluid collection. There is a small lacune in the basal ganglia on the right. IMPRESSION: Chronic ischemic microvascular change. Pansinusitis. Electronically signed by Sukumar Alvarez 05/06/2019 2:04 PM
--- NOTE | 2019-05-06 14:07 | EKG Report ---
Test Performed on : 05/06/2019 1:27:44 PM Test Reason : CP Blood Pressure : / mmHG Vent. Rate : 071 BPM Atrial Rate : 038 BPM P-R Int : 154 ms QRS Dur : 126 ms QT Int : 456 ms P-R-T Axes : 101 056 047 degrees QTc Int : 495 ms Undetermined rhythm Right bundle branch block Septal infarct (cited on or before 23-NOV-2018) Abnormal ECG When compared with ECG of 23-NOV-2018 08:42, Current undetermined rhythm precludes rhythm comparison, needs review Questionable change in initial forces of Septal leads ST no longer depressed in Lateral leads Unconfirmed Result
[2019-05-06] MEDS ORDERED: LR 1,000 ML IV ONE (14:35)
[2019-05-06] MEDS ORDERED: ROCEPHIN 1 GM in NS 50 ML IV ONE (14:53)
[2019-05-06] MEDS ORDERED: ZITHROMAX 500 MG/NS 500 MG/250 ML IVPB IV SCH ×2 (15:00→17:00)
[2019-05-06] MEDS ORDERED: LR 1,000 ML ONE (15:26)
[2019-05-06] MEDS ORDERED: TYLENOL PO PRN (16:04)
[2019-05-06] MEDS ORDERED: ULTRAM PO PRN (16:04)
[2019-05-06] MEDS: NS 1,000 ML IV SCH (16:17)
[2019-05-06] MEDS ORDERED: NORCO-7.5 PO PRN (16:29)
[2019-05-06] MEDS: DUONEB (A & A) INH SCH ×3 (16:35→22:41)
--- NOTE | 2019-05-06 17:21 | HISTORY AND PHYSICAL ---
PRIMARY CARE PHYSICIAN: Dr. Kerry Yi. ONCOLOGIST: Dr. Luna. CHIEF COMPLAINT: He has had altered mental status ever since he slipped out of the bed and fell on his knees Monday. He last states he has had increased confusion, and decreased p.o. intake. He has a history of non-Hodgkin's lymphoma with diffuse stomach involvement currently on radiation, and previously on chemotherapy. HISTORY OF PRESENTING ILLNESS: This is a 74-year-old male who presents to [facility] via EMS with at bedside stating that he has had altered mental status since he slid out of the bed on Monday onto his knees. She has noted increased confusion, some slurring of speech, and decreased p.o. intake. He is alert to verbal stimuli. He is currently being treated for non-Hodgkin's lymphoma with diffuse stomach involvement on radiation. He has received chemotherapy also. His workup showed a white blood cell count of 11.42. Sodium of 149, BUN of 58 with a creatinine of 1.8. Head CT showed chronic ischemic microvascular changes and pansinusitis, and a chest x-ray that showed pulmonary edema and/or pneumonia right hilar and adenopathy. He is being admitted for further evaluation and treatment. PAST MEDICAL HISTORY: Non-Hodgkin's lymphoma with diffuse stomach involvement, hypertension, diabetes type 2, hypercholesterolemia and a recent GI bleed in March of 2019. PAST SURGICAL HISTORY: Appendectomy, partial tongue resection, cataract surgery, left eye retinal detachment, and reattachment. FAMILY HISTORY: Reviewed and noncontributory. SOCIAL HISTORY: Currently lives with family. Smoked for 50 years. Denies any alcohol or illicit drug use. ALLERGIES: He has no known drug allergies. HOME MEDICATIONS: He takes metoprolol 25 mg p.o. b.i.d., multivitamin 1 p.o. daily, Prilosec 40 mg p.o. b.i.d., Phenergan 25 mg p.o. q.4-6 hours p.r.n. will be held, Carafate 1 g p.o. 4 times daily, tramadol 50 mg p.o. q.6-8 hours p.r.n., vitamin B complex 0.4 mg daily, and zinc 100 mg p.o. daily. LABORATORY DATA: White blood cell count of 11.42, hemoglobin 11.9, hematocrit 36.9, and platelets 107,000. PT and INR of 13.5 and 1.02. Sodium 149, potassium 4, chloride 110, CO2 21, BUN of 58, creatinine 1.8, and glucose 117. Urinalysis was negative. Head CT showed chronic ischemic microvascular change with pansinusitis. Chest x-ray showed pulmonary edema and/or pneumonia, right hilar and peritracheal adenopathy. EKG showed a right bundle branch block with an undetermined rhythm at 71. REVIEW OF SYSTEMS: He denied any fever, chills, blurred vision, dizziness, or chest pain. He has had a mild cough. He has had some confusion. reported mild slurred speech, but none noted at this time. Denied any abdominal pain, constipation, or diarrhea. He was positive for nausea. Denies vomiting or burning or hurting with urination. PHYSICAL EXAMINATION: On arrival, he had a temperature of 97.7 degrees, pulse 72, respirations 19, blood pressure 110/69 and saturating 97% on room air. GENERAL: This is a 74-year-old male who is lying in the bed, and answers questions appropriately. HEENT: Normocephalic, atraumatic. Normal ENT inspection. Oropharynx and nares are clear. EYES: Pupils are equal, round, and reactive to light and accommodation. Extraocular movements are intact. NECK: Normal inspection. Normal range of motion. LUNGS: Clear to auscultation bilaterally with equal lung expansion and chest wall movement. HEART: Regular rate and rhythm. No murmurs, rubs, or gallops. ABDOMEN: Soft, nontender, and nondistended. Bowel sounds are present x4 quadrants. MUSCULOSKELETAL: 3/5 strength x4 extremities. NEUROLOGICAL: The cranial nerves 2-12 appear grossly intact. ASSESSMENT: 1. Right lung pneumonia. 2. Hypernatremia with dehydration. 3. Acute kidney injury. 4. Diabetes type 2. 5. Non-Hodgkin's lymphoma with diffuse stomach involvement, currently receiving radiation. PLAN: He is being admitted to the medical unit, and placed on telemetry. O2 per protocol. Turn cough and deep breathe. Consult oncologist. Place on SCD's for DVT prophylaxis. Place on normal saline at 75 mL an hour. DuoNeb's q.4. Rocephin 1 gram IV q.24. Azithromycin 500 IV q.24. Recheck CBC, BMP, and place on diabetic diet. Further orders after seen by attending and process improvement consultant. Dictated by FRANCISCA Bonilla for Benjamin Kramer MD cc: FRANCISCA Bonilla MD Faye Wilson, MD [facility]
--- NOTE | 2019-05-06 17:54 | HISTORY AND PHYSICAL ---
ADDENDUM: Mr. Beckwith was brought in this morning because of progressively worsening shortness of breath, cough and generalized weakness. He has a history of non-Hodgkin gastric lymphoma, hypertension, diabetes, COPD, who continues to smoke. He has been on chemotherapy and radiation since October of this year. He has lost remarkable weight with extremely poor performance status. Upon presenting to the emergency department he was evaluated, found to be extremely hypoxemic with oxygen saturation of 88% at some point on nasal cannular. PHYSICAL EXAM: He looks pale, he looks emaciated, chronically ill looking, a lot of crackles in both lung faria. He just moving all his extremities and he is not seeming to be focalizing. I think he is altered. is at the bedside and gives most of the history. I have reviewed his lab work and also his imaging studies. His chest x-ray has been reported to have pulmonary edema and/or pneumonia. There is a right hilar and paratracheal adenopathy. Mr. Beckwith is subsequently being admitted for severe pneumonia associated with acute hypoxemic respiratory failure. His pneumonia severity index is 145( class V) with a mortality of about 27% in the short term. We therefore going to transfer him to the ICU for very close monitoring. Of note Mr. Beckwith was on hospice services however this has been revoked and he is being admitted with full code resuscitation status and I have discussed this with the and she is very well aware about the possible implications and complications of any heroic measures if Mr. Beckwith should go into any cardiopulmonary arrest. I have ordered a strep pneumo urine, Legionella urine, I have also ordered immunoglobulin levels. We will get both ID and Pulmonary Medicine to see Mr. Beckwith and as I said will transfer him to the ICU. I have explained my findings and the plan to the who was at the bedside at the time of the encounter. Mr. Beckwith is currently anemic but not terrible for transfusion at this point. He also has elevated BUN and creatinine with a ratio of 32. He seems to be volume depleted with hypernatremia. PLAN: I have ordered arterial blood gases. cc: Benjamin Kramer MD [facility] HOSPITALSheree
[2019-05-06 18:03] LABS: BLOOD TYPE ARTERIAL; PCO2(98.6) 29 mmHg (35-45); PO2(98.6) 61 mmHg (60-100); SAMPLE BLOOD; pH(98.6) 7.42 (7.35-7.45)
[2019-05-06 18:04] LABS: BE -4.6 mmoll (-3.0-3.0); HCO3-(ACT) 21.2 mmoll (20.0-26.0); METHB 0.6 % (0.0-1.5); SAO2 94.6 % (95.0-100.0); THB 11.8 g/dL (11.5-17.4)
[2019-05-06 18:05] LABS: FIO2 94.6 %; MODALITY CANNULA; O2(CT) 15.3 mL/dL (15.0-23.0)
[2019-05-06] MEDS: SOLU-MEDROL IV SCH (18:07)
[2019-05-06] MEDS: MAXIPIME 1 GM in NS 50 ML IV SCH (18:07)
[2019-05-06] MEDS ORDERED: PRILOSEC PO SCH (21:00)
[2019-05-06] MEDS ORDERED: LOPRESSOR PO SCH (21:00)
[2019-05-06] MEDS: CARAFATE PO SCH (21:53)
[2019-05-06 23:19] LABS: BLOOD TYPE ARTERIAL; SAMPLE BLOOD
[2019-05-06 23:20] LABS: ALLEN TEST YES; BE -4.7 mmoll (-3.0-3.0); HCO3-(ACT) 21.1 mmoll (20.0-26.0); METHB 1.2 % (0.0-1.5); O2(CT) 13.4 mL/dL (15.0-23.0); PCO2(98.6) 29 mmHg (35-45); PO2(98.6) 51 mmHg (60-100); SAO2 89.9 % (95.0-100.0); THB 10.9 g/dL (11.5-17.4); pH(98.6) 7.42 (7.35-7.45)
[2019-05-06 23:23] LABS: MODALITY NRB; O2HB 87.3 % (95.0-99.0)
[2019-05-06] MEDS ORDERED: NORCURON ONE (23:28)
[2019-05-06] MEDS ORDERED: AMIDATE ONE (23:29)
[2019-05-06] MEDS ORDERED: VERSED ONE (23:29)
[2019-05-06] MEDS ORDERED: QUELICIN ONE (23:29)
[2019-05-06] MEDS ORDERED: STERILE WATER INJ. ONE (23:33)
[2019-05-06] MEDS ORDERED: AMIDATE IV ONE (23:42)
[2019-05-06] MEDS ORDERED: QUELICIN IV ONE (23:42)
[2019-05-06] MEDS: DIPRIVAN 1% 1,000 MG/100 ML BOTTLE IV SCH (23:45)
--- NOTE | 2019-05-07 00:06 | EKG Report ---
Test Performed on : 05/06/2019 6:52:29 PM Test Reason : ARRYTHMIA Blood Pressure : / mmHG Vent. Rate : 087 BPM Atrial Rate : 087 BPM P-R Int : 152 ms QRS Dur : 124 ms QT Int : 424 ms P-R-T Axes : 087 078 109 degrees QTc Int : 510 ms Sinus rhythm. with occasional premature ventricular complexes. and premature atrial complexes. Right bundle branch block Septal infarct (cited on or before 23-NOV-2018) Abnormal ECG When compared with ECG of 06-MAY-2019 13:27, (Unconfirmed) Previous ECG has undetermined rhythm, needs review Questionable change in initial forces of Septal leads Nonspecific T wave abnormality no longer evident in Inferior leads Confirmed by Jamari CASTILLO, MMarzena Malhotra ([id number]) on 05/09/2019 12:09:55 PM
[2019-05-07] MEDS: LEVOPHED 8 MG in D5 1/2 NS 250 ML IV SCH (00:20)
[2019-05-07 00:34] LABS: ALLEN TEST YES; BE -6.2 mmoll (-3.0-3.0); BLOOD TYPE ARTERIAL; HCO3-(ACT) 20.1 mmoll (20.0-26.0); METHB 0.7 % (0.0-1.5); O2(CT) 14.4 mL/dL (15.0-23.0); O2HB 97.9 % (95.0-99.0); PCO2(98.6) 35 mmHg (35-45); PO2(98.6) 168 mmHg (60-100); SAMPLE BLOOD; SAO2 100.4 % (95.0-100.0); SRATE 14 BPM; THB 10.2 g/dL (11.5-17.4); TVOL 500 mL; pH(98.6) 7.34 (7.35-7.45)
[2019-05-07 00:35] LABS: MODALITY VENTILATOR
[2019-05-07] MEDS: ZYVOX 600 MG/D5W 600 MG/300 ML IVPB IV SCH ×2 (02:00→14:14)
[2019-05-07] MEDS: DIPRIVAN 1% 1,000 MG/100 ML BOTTLE IV SCH ×4 (02:42→22:04)
[2019-05-07] MEDS: DUONEB (A & A) INH SCH ×6 (03:33→23:08)
[2019-05-07] MEDS: CARAFATE PO SCH (04:20)
[2019-05-07] MEDS: MAXIPIME 1 GM in NS 50 ML IV SCH ×3 (04:21→21:01)
[2019-05-07] MEDS: SOLU-MEDROL IV SCH ×2 (04:24→16:45)
[2019-05-07 05:40] LABS: ALLEN TEST YES; BE -4.8 mmoll (-3.0-3.0); BLOOD TYPE ARTERIAL; HCO3-(ACT) 21.2 mmoll (20.0-26.0); METHB 1.6 % (0.0-1.5); O2(CT) 13.1 mL/dL (15.0-23.0); O2HB 94.7 % (95.0-99.0); PCO2(98.6) 31 mmHg (35-45); PO2(98.6) 77 mmHg (60-100); SAMPLE BLOOD; SAO2 97.8 % (95.0-100.0); SRATE 14 BPM; THB 9.8 g/dL (11.5-17.4); TVOL 500 mL
[2019-05-07 05:41] LABS: MODALITY VENTILATOR
[2019-05-07 05:59] LABS: BASO# 0.03 X1000 (0.0-0.2); BASO% 0.2 % (0.0-0.8); HEMATOCRIT 30.2 % (42.0-52.0); HEMOGLOBIN 9.7 g/dL (14.0-18.0); IMM GRAN# 0.15 X1000 (0.0-0.04); LYMPH# 0.61 X1000 (1.2-3.4); LYMPH% 4.2 % (20.5-51.1); MCH 31.2 PG (27-31); MCHC 32.1 g/dL (33-37); MCV 97.1 FL (81-99); MONO# 0.82 X1000 (0.11-0.59); MONO% 5.6 % (1.7-9.3); MPV 11.8 FL (7.4-10.4); NEUT# 12.98 X1000 (1.4-6.5); PLT 99 X1000 (130-400); RBC 3.11 XMIL (4.7-6.1); RDW 18.7 % (11.5-14.5); WBC 14.59 X1000 (4.8-10.8)
[2019-05-07 06:18] LABS: CALCIUM 8.6 mg/dL (8.8-10.2); CREATININE 2.2 mg/dL (0.7-1.2); POTASSIUM 4.1 mmol/L (3.5-5.1)
--- NOTE | 2019-05-07 07:08 | Diag Imaging Result Doc PS360 ---
EXAM: CHEST-PORTABLE 05/06/2019 HISTORY: ET tube placement TECHNIQUE: AP portable at 2348 COMMENT: The right lung is now nearly completely opacified. There is an endotracheal tube with its tip at the thoracic inlet. There is ill-defined parahilar opacity in the left lung which appears slightly worse than on 05/06/2019 at 1347. IMPRESSION: Worsening pneumonia plus minus pulmonary edema, particularly in the right lung. Electronically signed by Sukumar Alvarez 05/07/2019 7:05 AM
--- NOTE | 2019-05-07 07:09 | Diag Imaging Result Doc PS360 ---
EXAM: CHEST-PORTABLE 05/07/2019 HISTORY: intubation/PNA TECHNIQUE: AP portable at 0548 COMMENT: There is an endotracheal tube with its tip at thoracic inlet. Compared to the previous study of 05/06/2019 there has been marked improvement in pneumatization of the right lung. There continues to be diffuse interstitial and alveolar opacities in the right lung and in the parahilar region of the left lung. IMPRESSION: Improved pulmonary edema and/or pneumonia. Electronically signed by Sukumar Alvarez 05/07/2019 7:07 AM
[2019-05-07] MEDS ORDERED: VICON-C PO SCH (09:00)
[2019-05-07] MEDS ORDERED: ZINC SULFATE PO SCH (09:00)
[2019-05-07] MEDS ORDERED: THERA M PLUS PO SCH (09:00)
[2019-05-07] MEDS ORDERED: D5W 1,000 ML IV SCH (09:15)
[2019-05-07] MEDS: NS 1,000 ML IV SCH ×2 (09:27→21:59)
--- NOTE | 2019-05-07 10:18 | PULMONOLOGY CONSULTATION ---
DATE: 05/07/2019 REQUESTING CLINICIAN: Dr. Salvador Kramer. HISTORY OF PRESENT ILLNESS: Mr. Beckwith is a 74-year-old white male with lymphoma who has failed treatment by report and was on hospice. Family revoked hospice services when patient began to decline and brought him to the emergency room. I was notified of patient's admission last night after 11 p.m. when he was having progressive respiratory failure and failing noninvasive measures. After discussion with the nurse, intubation with initiation of mechanical ventilation was recommended. Initial ventilator management was performed over the phone. The patient was diagnosed with non-Hodgkin's lymphoma with diffuse gastric involvement. He has received chemotherapy and radiation therapy. He has lost a significant amount of weight and now has a BMI of 16.5. No family is at the bedside to discuss recent events. PAST MEDICAL HISTORY/PROBLEM LIST: 1. Non-Hodgkin's lymphoma as per above. 2. Type 2 diabetes mellitus. 3. Dyslipidemia. 4. Hypertension. 5. Chronic obstructive pulmonary disease. 6. Cataracts. 7. History of oral cancer status post partial tongue resection. 8. History of retinal detachment. SOCIAL HISTORY: The patient lives with family. Ongoing tobacco use noted. No alcohol or drug use noted. REVIEW OF SYSTEMS: Not contributory as indicated by the nurse practitioner. PHYSICAL EXAMINATION: General: Reveals a frail, chronically ill-appearing male on mechanical ventilation. Nearby suction canister has bilious material present. Vital Signs: Blood pressure 101/60, heart rate 65, respiratory rate 67. HEENT: Pupils are equal. Oropharynx evaluation is limited with endotracheal tube in place. Neck: Supple. Chest: Reveals coarse crackles throughout the right chest. Cardiac: Regular rate. Normal S1. Normal S2. Abdomen: Soft. No bowel sounds present. Extremities: Reveal extensive muscle wasting. LABORATORIES: White blood count 14.6, hemoglobin 9.7, platelet count 99,000. Arterial blood gas reveals a pH of 7.40, pCO2 of 31, PO2 of 77 with a normal lactate. Sodium 148, potassium 4.1, chloride 112 bicarbonate 18, BUN 70, creatinine 2.7. Chest x-ray reveals diffuse infiltrates throughout the right lung with more minor infiltrates on the left. IMPRESSION: A 74-year-old with 1. Aspiration pneumonia. 2. Acute hypoxemic respiratory failure. 3. Acute renal failure. 4. Protein calorie malnutrition. 5. Lymphoma. 6. Anemia. 7. Leukocytosis. 8. Thrombocytopenia. DISCUSSION: A 74-year-old with problems outlined above. Patient appears to have progressive lymphoma symptoms along with weight loss and progressive decline. The patient has other comorbidities including diabetes and COPD. The patient now has a severe pneumonia. The patient's prognosis is extremely poor. RECOMMENDATION: 1. Continue ventilatory support. 2. Continue comfort measures. 3. Initiate end of life discussions with the family. Patient's prognosis is dismal. cc: Jaron Sanches MD
[2019-05-07] MEDS: PROTONIX IV SCH ×2 (10:38→21:58)
[2019-05-07] MEDS: LOVENOX SUBQ SCH (10:38)
[2019-05-07] MEDS: SODIUM CHLORIDE 0.9% INJ SCH ×2 (10:39→21:58)
--- NOTE | 2019-05-07 13:59 | HEMO/ONC CONSULTATION ---
DATE: 05/07/2019 REASON FOR CONSULTATION: This is a known patient of ours with mantle cell lymphoma. HISTORY OF PRESENT ILLNESS: Mr. Beckwith is a known patient of ours who is recently hospitalized April 02 through the for GI bleeding. The patient had EGD while hospitalized and the biopsy showed that the patient has mantle cell lymphoma with severe gastric involvement. Since coming home from the hospital, the patient has remained very weak. He has fallen a couple times at home. The patient was last seen in the office April 25, to discuss further treatment. Due to the patient's deconditioning we decided to give him some time off to improve his strength and nutrition status. That same day the patient was also sent immediately to Dr. Batista' office for evaluation of possible retinal detachment in his right eye. We were going to follow up in 2 weeks to discuss therapy. In the meantime, the patient has had a fall at home resulting in some altered mental status. He was hospitalized after having a fall this weekend out of his bed at home. His states that he has had a altered mental status since then, increased confusion, decreased oral intake and slurring of speech. His head CT in the ER showed chronic ischemic microvascular changes and severe pansinusitis. The patient was found to be hypoxic last night and became increasing more confused. He was attempting to pull at his medical lines. He was transferred to the ICU and subsequently intubated. The patient is currently not receiving any chemotherapy. His last dose of R-CVP was 03/12/2019. He is receiving radiation per Dr. Haynes. PAST MEDICAL HISTORY: Mantle cell lymphoma with diffuse stomach involvement, hypertension, type 2 diabetes, hypercholesterolemia, GI bleed, right retinal detachment. PAST SURGICAL HISTORY: Appendectomy, partial tongue resection, cataract surgery, left eye retinal detachment and reattachment. SOCIAL HISTORY: The patient smoked for about 50 years. Denies any alcohol or illicit drug use. ALLERGIES: No known drug allergies. HOME MEDICATIONS: Metoprolol tartrate, multivitamin, Prilosec, Phenergan, Carafate, tramadol, B complex, zinc. REVIEW OF SYSTEMS: Negative other than what is in HPI. VITAL SIGNS: Temperature 99 degrees, pulse rate 64, respiratory rate 24, blood pressure 100/57, O2 saturation 93% on mechanical ventilation at 60% oxygen flow, 0/10 observed symptoms of pain. PHYSICAL EXAM: General: This is a chronically ill-appearing elderly gentleman sedated in bed in no acute distress. HEENT: Pupils are equal, sclerae is anicteric. Respiratory: Coarse crackles throughout the right chest. Cardiovascular: Regular rate. Normal S1, S2. Abdomen: Soft, nondistended, palpable pulse noted to the epigastric area. Musculoskeletal: No edema noted. Neurological: Appropriately sedated. LABORATORY: WBCs 14.59, hemoglobin 9.7, hematocrit 30.2, platelet count 99,000, ANC 12.98, sodium 148, creatinine 2.2, calcium 8.6. Chest x-ray today, improved pulmonary edema and/or pneumonia. ASSESSMENT: 1. Mantle cell lymphoma. 2. Right lung pneumonia. 3. Hypernatremia with dehydration. 4. Acute kidney injury. 5. Acute hypoxic respiratory failure. 6. Protein calorie malnutrition. PLAN: Over the night the patient began to develop respiratory failure and was subsequently intubated. He is currently sedated on mechanical ventilation. Pulmonology has been consulted to evaluate the patient's pneumonia and intubation status. We will continue to monitor and follow closely. Dictated by FRANCISCA Pradhan for Wili Luna MD Patient seen and examined. As above. Patient recently was admitted with GI bleeding. Repeat EGD revealed a large gastric mass and pathology revealed mantle cell lymphoma. He was seen Dr. Haynes and receiving radiation. I believe that was supposed to be completed by now. He developed retinal detachment recently. He was seen Dr. Batista. He presented with confusion. Overnight he became hypoxic and is intubated. Nurse also reports that he has had melena overnight. His prognosis is poor especially given his extremely poor performance status and GI bleeding. Continue current management. No recommendations from my standpoint at the current time but will follow along. Wili Luna M.D. cc: Wili Luna MD [facility]
[2019-05-07] MEDS ORDERED: ROCEPHIN 1 GM in NS 50 ML IV SCH (15:00)
--- NOTE | 2019-05-07 15:51 | PROGRESS NOTE ---
DATE: 05/07/2019 INTERVAL HISTORY: Overnight patient was saturating in the high 80s on non- rebreather. He was moved to the ICU and subsequently intubated. He also remains on pressors with Levophed to maintain blood pressures. Also with melena overnight. Has had a drop in his blood counts this morning. This morning oxygenation is marginal on 60% FiO2 with 5 of PEEP. REVIEW OF SYSTEMS: Unable to obtain secondary to patient's mental status. LABS: WBC 14.5, hemoglobin 9.7, hematocrit 30.2, platelets 99,000. ABG with pH 7.4, pCO2 31, PO2 77 on 60% FiO2 via vent. Sodium 148, potassium 4.1, chloride 112, bicarb 18, BUN 70, creatinine 2.2, glucose 119, lactate 1.4. VITAL SIGNS: T-max 99.0 degrees, pulse 71, respirations 26, blood pressure 136/69, O2 saturation 94% on ventilator. PHYSICAL EXAMINATION: General: Patient intubated and sedated. Chronically ill appearing with significant global muscle wasting. HEENT: Normocephalic, atraumatic. No cervical adenopathy. Cardiovascular: Regular rate and rhythm. Pulmonary: Surprisingly clear to auscultation. No wheezing. Good air entry. Abdomen: Soft, nontender, nondistended. Bowel sounds decreased but present. Patient with pulsatile upper abdominal mass. Likely is aorta. Not significantly widened but is fairly pronounced in the upper abdomen. I lose it as I go down. Extremities: Peripheral pulses decreased but intact. No clubbing or cyanosis. Neurologic: Exam limited by mental status but pupils equal, round, reactive to light. Occasional nonpurposeful movement of all extremities. Psychiatric: The patient is sedated. ASSESSMENT AND PLAN: 1. Acute hypoxic respiratory failure, pneumonia. Patient was saturating in the 80s on a non- rebreather just after admission, so he was intubated overnight. Have had to go up on his oxygen some today. On antibiotics with cefepime and Zyvox which we will continue for now. Pulmonology following. Dense right-sided pneumonia on chest x-ray. 2. Septic shock secondary to #1. Patient remains on Levophed. Last lactate was okay. Will continue antibiotics as above and monitor. 3. Possible gastrointestinal bleed. Patient reportedly with melena overnight. Did have drop in hemoglobin from 11.9 to 9.7 this morning. Occult blood sent and pending. Placed on PPI. Not really stable for endoscopy at this point, so we will monitor and transfuse as needed. 4. Acute kidney injury. Patient with baseline creatinine 1.1 to 1.2. Creatinine up to 1.8 on admission and trending up further to 2.2 today. Obtaining ultrasound to rule out obstruction, but suspect this is due to hypotension and septic shock as above. Monitor closely. Continue IV fluids. 5. Non-Hodgkin's lymphoma. Patient getting radiation prior to admission. May be contributing to his issues. 6. Hypernatremia. Mild and slightly improved with IV fluids. Continue to monitor. 7. Diabetes. The patient is diabetic by history but it does not look like he has been on any medications. Likely diet-controlled at this point. Hemoglobin A1c pending. 8. Severe protein calorie malnutrition. Patient with BMI 16.5, visible muscle wasting on exam, likely severe protein calorie malnutrition. 9. possible AAA: Planning on getting an ultrasound of his kidneys anyway to rule out obstruction, so we will also evaluate his aorta for AAA at that time. 10. Disposition. Patient remains critically ill in ICU. Prognosis likely quite poor. 35 minutes critical care time spent immediately available to the patient, examining patient, reviewing labs, and making medical decisions. ELLA
--- NOTE | 2019-05-07 16:14 | Diag Imaging Result Doc PS360 ---
US ABDOMEN-COMPLETE - 05/07/2019 INDICATION: DAVID/ARF COMPARISON: 11/23/2018 FINDINGS: There is a fusiform abdominal aortic aneurysm. This measures 4.2 cm maximally. There is a moderate amount of ascites. The kidneys are grossly normal. The right kidney measures 8.6 x 4.5 x 3.1 cm. The left kidney measures 9.7 x 3.4 x 3.6 in meters. The spleen size is 12.3 cm. The liver is atrophic and cirrhotic. The gallbladder and pancreas are normal. Common bile duct measures 5 mm. IVC and main portal vein are patent. IMPRESSION: Cirrhosis. Ascites. Abdominal aortic aneurysm. Electronically signed by Allen Ruvalcaba 05/07/2019 4:11 PM
[2019-05-07] MEDS ORDERED: ZITHROMAX 500 MG/NS 500 MG/250 ML IVPB IV SCH (17:00)
[2019-05-08] MEDS: LEVOPHED 8 MG in D5 1/2 NS 250 ML IV SCH ×2 (00:20→00:24)
[2019-05-08] MEDS: DIPRIVAN 1% 1,000 MG/100 ML BOTTLE IV SCH ×5 (02:34→21:09)
[2019-05-08] MEDS: DUONEB (A & A) INH SCH ×5 (03:20→19:30)
[2019-05-08] MEDS: ZYVOX 600 MG/D5W 600 MG/300 ML IVPB IV SCH ×2 (03:24→15:33)
[2019-05-08 04:27] LABS: BE -6.9 mmoll (-3.0-3.0); BLOOD TYPE ARTERIAL; HCO3-(ACT) 19.6 mmoll (20.0-26.0); O2(CT) 12.3 mL/dL (15.0-23.0); O2HB 96.4 % (95.0-99.0); PCO2(98.6) 36 mmHg (35-45); PO2(98.6) 92 mmHg (60-100); SAMPLE BLOOD; SAO2 98.9 % (95.0-100.0); SRATE 14 BPM; TVOL 500 mL; pH(98.6) 7.32 (7.35-7.45)
[2019-05-08 04:28] LABS: ALLEN TEST YES; MODALITY VENTILATOR
[2019-05-08] MEDS: SOLU-MEDROL IV SCH ×2 (04:29→17:59)
[2019-05-08] MEDS: MAXIPIME 1 GM in NS 50 ML IV SCH ×3 (04:29→21:10)
[2019-05-08 05:27] LABS: BASO# 0.01 X1000 (0.0-0.2); BASO% 0.1 % (0.0-0.8); HEMATOCRIT 27.6 % (42.0-52.0); HEMOGLOBIN 8.8 g/dL (14.0-18.0); IMM GRAN# 0.13 X1000 (0.0-0.04); IMM GRAN% 1.3 % (0.0-0.5); LYMPH# 0.42 X1000 (1.2-3.4); LYMPH% 4.3 % (20.5-51.1); MCH 31.3 PG (27-31); MCHC 31.9 g/dL (33-37); MCV 98.2 FL (81-99); MONO# 0.52 X1000 (0.11-0.59); MONO% 5.3 % (1.7-9.3); MPV 11.9 FL (7.4-10.4); NEUT# 8.74 X1000 (1.4-6.5); PLT 83 X1000 (130-400); RBC 2.81 XMIL (4.7-6.1); RDW 18.7 % (11.5-14.5); WBC 9.82 X1000 (4.8-10.8)
[2019-05-08 05:51] LABS: MAGNESIUM 2.1 mg/dL (1.5-2.7); PHOSPHORUS 5.9 mg/dL (2.7-4.5)
[2019-05-08 06:02] LABS: ALB/GLOB RATIO 1.2; ALBUMIN 2.6 g/dL (3.5-5.0); CALCIUM 8.1 mg/dL (8.8-10.2); CREATININE 2.4 mg/dL (0.7-1.2); POTASSIUM 4.1 mmol/L (3.5-5.1); TOTAL BILIRUBIN 0.27 mg/dL (0.20-1.00); TOTAL PROTEIN 4.8 g/dL (6.3-8.3)
--- NOTE | 2019-05-08 07:10 | Diag Imaging Result Doc PS360 ---
EXAM: CHEST-PORTABLE 05/08/2019 HISTORY: respiratory failure TECHNIQUE: AP portable at 0518 COMMENT: There is an endotracheal tube with its tip at thoracic inlet. Compared to 05/07/2019 there has been some clearing of opacity in the right base. There is still bilateral perihilar opacity particularly on the right. Opacification of the left lower lobe medially has worsened slightly since the previous study. IMPRESSION: Waxing and waning pulmonary opacities, pneumonia plus minus pulmonary edema. Electronically signed by Sukumar Alvarez 05/08/2019 7:08 AM
[2019-05-08] MEDS: SODIUM CHLORIDE 0.9% INJ SCH ×2 (08:23→21:10)
[2019-05-08] MEDS: PROTONIX IV SCH ×2 (08:23→21:10)
[2019-05-08] MEDS: LOVENOX SUBQ SCH (08:23)
[2019-05-08 12:44] LABS: HEMATOCRIT 29.1 % (42.0-52.0); HEMOGLOBIN 9.3 g/dL (14.0-18.0)
--- NOTE | 2019-05-08 15:31 | PROGRESS NOTE ---
DATE: 05/08/2019 INTERVAL HISTORY: Patient remains intubated and sedated on pressors with Levophed. No further melena. Minimally elevated temperature of 100 degrees. No other acute events overnight. REVIEW OF SYSTEMS: Unable to obtain secondary to patient's mental status. LABORATORY: WBC 9.8. Initial hemoglobin 8.8, repeat 9.3, hematocrit 27.6, and platelets 83,000. ABG with pH 7.32, pCO2 36, pO2 92 on 55% FiO2 via vent. Sodium 142, potassium 4.1, bicarb 17, BUN 73, creatinine 2.4, glucose 157, and phosphorus 5.9. IMAGING: Chest x-ray with roughly stable pneumonia plus or minus edema. Abdominal ultrasound showing liver cirrhosis with mild ascites and small abdominal aortic aneurysm at 4.2 cm. VITALS: T-max 100 degrees, pulse 65, respirations 17, blood pressure 106/58, and O2 saturation 99% on ventilator. PHYSICAL EXAMINATION: General: Intubated and sedated in no acute distress. Chronically ill- appearing with global muscle wasting. HEENT: Normocephalic, atraumatic. No cervical adenopathy. Cardiovascular: Regular rate and rhythm. No murmurs noted. Pulmonary: Remains relatively clear to auscultation with good air entry. Abdomen: Soft, nontender, and nondistended. Bowel sounds decreased but present. Extremely soft, and nontender, not frankly distended, but belly is somewhat more protuberant than yesterday. Bowel sounds decreased but present. Pulsatile upper abdominal mass and stable. Extremities: Peripheral pulses decreased but intact. No clubbing or cyanosis. Neurologic: Pupils remain equal, round, and reactive to light. No obvious focal deficits within limits of sedation. Psychiatric: Patient is sedated as above. Skin: No new rashes or lesions identified. ASSESSMENT AND PLAN: 1. Acute hypoxic respiratory failure, pneumonia. Patient intubated shortly after admission as he was saturating in 80s on non-rebreather. He has remained intubated since with roughly stable oxygenation. On antibiotics with cefepime and Zyvox which we will continue. Pulmonology following. Chest x-ray approximately stable. 2. Septic shock, likely secondary to #1. The patient remains on Levophed. Continuing antibiotics as above and monitor. 3. Possible GI bleed. The patient reportedly with melena just after admission. He did have a drop in hemoglobin from 11.9 on admission to 8.8 this morning, but recheck this afternoon of 9.3, and no further melena. If he did have a GI bleed, it looks to likely have stopped. Continue to monitor. 4. Acute kidney injury. Patient's baseline creatinine of 1.1. Creatinine has been trending up since admission up to 2.4 today. Suspect ATN related to critical illness. Ultrasound shows no evidence of obstruction. We will continue gentle fluids and monitor closely. 5. Non-Hodgkin's lymphoma. Patient is getting radiation prior to admission, likely contributing to various issues above. 6. Hypernatremia resolved with fluids. Monitor. 7. Diabetes, likely diet-controlled. Hemoglobin A1c pending. 8. Abdominal aortic aneurysm 4.2 cm. No need for acute intervention. DISPOSITION: Patient remains critically ill in ICU. Prognosis is poor. Family is supposed to come in this afternoon for goals of care discussion. The patient was reportedly on hospice previously. TIME SPENT: 40 minutes of critical care time spent immediately available to patient. On examining patient, reviewing labs, and making medical decisions. addendum: met with family to discuss goals of care and prognosis. they seem to understand that his prognosis is quite poor but strongly desire to pursue all conservative measures for now. after extensive discussion they did elect to make him DNR in the event of a cardiac arrest. will continue discussions with them. ELLA
[2019-05-08] MEDS: NS 1,000 ML IV SCH (15:33)
--- NOTE | 2019-05-08 21:31 | PULMONOLOGY PROGRESS NOTE ---
DATE: 05/08/2019 SUBJECTIVE: The patient remains sedated and on mechanical ventilation. He remains on Levophed, but there has been some improvement over the last 24 hours. OBJECTIVE: BP 101/54, heart rate 68, respiratory rate 19, oxygen saturation 99%. Maximum temperature in the last 24 hours 100.0 degrees. HEENT: There is bitemporal wasting. Oropharynx appears dry. Neck is supple. Chest reveals coarse breath sounds, right greater than left. Cardiac exam: Regular rate. Normal S1, normal S2. Abdomen is scaphoid and soft, with no bowel sounds present. Extremities reveal trace to 1+ peripheral edema. DIAGNOSTIC DATA: Chest x-ray reveals diffuse infiltrate on the right. There is marginal improvement at the right base but worsening of the left base. LABORATORY DATA: Sodium 142, potassium 4.1, chloride 101, bicarbonate 17, BUN 73, creatinine 2.7. White blood count 9.82, hemoglobin 8.8, platelet count 83,000. Arterial blood gas reveals pH 7.32, pCO2 of 36, pO2 of 92. IMPRESSION: A 74-year-old with: 1. Aspiration pneumonia. 2. Acute hypoxemic respiratory failure. 3. Acute renal failure. 4. Cirrhosis. 5. Ascites. 6. Lymphoma. 7. Thrombocytopenia. 8. Ongoing hemodynamic instability with shock, requiring Levophed. DISCUSSION: A 74-year-old with problems outlined above, with multiorgan dysfunction. The patient's prognosis is extremely poor. The was at the bedside. She wants to pursue aggressive care. She reports the only reason that she chose hospice was because she needed oxygen emergently. She is aware that his prognosis is very poor, but she "refuses to give up." RECOMMENDATIONS: 1. Continue ventilatory support. 2. Continue basal pressure as required to maintain systolic blood pressure with a mean arterial pressure greater than 65. 3. Continue antibiotics. 4. Ongoing end-of-life discussions with the family. His prognosis is extremely poor. Time spent in critical care management: 30+ minutes cc: Jaron Sanches MD [facility]
[2019-05-09] MEDS: DUONEB (A & A) INH SCH ×7 (00:08→23:30)
[2019-05-09] MEDS: DIPRIVAN 1% 1,000 MG/100 ML BOTTLE IV SCH ×5 (01:14→22:33)
[2019-05-09] MEDS: NS 1,000 ML IV SCH (03:31)
[2019-05-09] MEDS: MAXIPIME 1 GM in NS 50 ML IV SCH ×3 (03:32→19:50)
[2019-05-09] MEDS: SOLU-MEDROL IV SCH ×2 (03:32→17:15)
[2019-05-09] MEDS: ZYVOX 600 MG/D5W 600 MG/300 ML IVPB IV SCH ×2 (03:32→15:05)
[2019-05-09] MEDS: LEVOPHED 8 MG in D5 1/2 NS 250 ML IV SCH (03:34)
[2019-05-09 04:44] LABS: BE -10.2 mmoll (-3.0-3.0); BLOOD TYPE ARTERIAL; METHB 1.2 % (0.0-1.5); O2(CT) 10.5 mL/dL (15.0-23.0); O2HB 96.5 % (95.0-99.0); PCO2(98.6) 37 mmHg (35-45); PO2(98.6) 102 mmHg (60-100); SAMPLE BLOOD; SAO2 99.7 % (95.0-100.0); SRATE 14 BPM; THB 7.6 g/dL (11.5-17.4); TVOL 500 mL; pH(98.6) 7.25 (7.35-7.45)
[2019-05-09 04:45] LABS: MODALITY VENTILATOR
[2019-05-09 06:09] LABS: BASO# 0.02 X1000 (0.0-0.2); BASO% 0.2 % (0.0-0.8); HEMATOCRIT 28.9 % (42.0-52.0); HEMOGLOBIN 9.2 g/dL (14.0-18.0); IMM GRAN# 0.16 X1000 (0.0-0.04); IMM GRAN% 1.6 % (0.0-0.5); LYMPH# 0.51 X1000 (1.2-3.4); MCH 31.7 PG (27-31); MCHC 31.8 g/dL (33-37); MCV 99.7 FL (81-99); MONO% 5.9 % (1.7-9.3); MPV 12.5 FL (7.4-10.4); NEUT# 8.87 X1000 (1.4-6.5); NEUT% 87.3 % (42.2-75.2); PLT 58 X1000 (130-400); RDW 18.5 % (11.5-14.5); WBC 10.16 X1000 (4.8-10.8)
[2019-05-09 06:30] LABS: AGAP 15; ALB/GLOB RATIO 0.9; ALBUMIN 2.3 g/dL (3.5-5.0); ALKALINE PHOSPHATASE 66 U/L (32-122); BUN 77 mg/dL (8-22); CALCIUM 7.6 mg/dL (8.8-10.2); CHLORIDE 108 mmol/L (98-107); COSMO 302; CREATININE 2.5 mg/dL (0.7-1.2); ESTIMATED GFR 25; GLUCOSE 121 mg/dL (70-104); GOT 19 U/L (10-34); GPT < 5 U/L (10-44); POTASSIUM 4.2 mmol/L (3.5-5.1); SODIUM 139 mmol/L (136-145); TCO2 16 mmol/L (25-35); TOTAL BILIRUBIN 0.21 mg/dL (0.20-1.00); TOTAL PROTEIN 4.8 g/dL (6.3-8.3)
[2019-05-09 06:39] LABS: SEGS 94 % (42-75)
--- NOTE | 2019-05-09 07:04 | Diag Imaging Result Doc PS360 ---
EXAM: CHEST-PORTABLE 05/09/2019 HISTORY: respiratory failure TECHNIQUE: AP portable at 0518 COMMENT: Compared to 05/08/2019, the inspiration is slightly less optimal in the right lower lobe is less well expanded. There is some obscuration of the lateral portion of the right hemidiaphragm which was not the case previously. Perihilar opacity bilaterally is essentially stable. IMPRESSION: Slightly worsened pneumonia right lower lobe. Electronically signed by Sukumar Alvarez 05/09/2019 7:02 AM
[2019-05-09] MEDS ORDERED: SODIUM BICARBONATE 8.4% 100 MEQ in D5W 1,000 ML IV SCH (08:00)
[2019-05-09 08:22] LABS: ALLEN TEST YES
[2019-05-09] MEDS: LOVENOX SUBQ SCH (09:39)
[2019-05-09] MEDS: SODIUM CHLORIDE 0.9% INJ SCH (09:39)
[2019-05-09] MEDS: PROTONIX IV SCH ×2 (09:40→20:01)
--- NOTE | 2019-05-09 14:32 | PROGRESS NOTE ---
DATE: 05/09/2019 INTERVAL HISTORY: The patient remains intubated and sedated. Still on pressors. Fairly stable. Afebrile. REVIEW OF SYSTEMS: Unable to obtain secondary to patient's mental status. LABS: WBC 10.1, hemoglobin 9.2, hematocrit 28.9, platelets 58,000. ABG with pH 7.25, pCO2 of 37, PO2 of 102. Sodium 139, potassium 4.2, bicarb 16, BUN 77, creatinine 2.5, glucose 121. VITALS: T-max 98.4 degrees, pulse 62, respirations 14, blood pressure 88/59, O2 saturation 100% on ventilator. PHYSICAL EXAMINATION: General: Intubated and sedated. No acute distress. Chronically ill- appearing. HEENT: Normocephalic, atraumatic. No cervical adenopathy. Cardiovascular: Regular rate and rhythm. No murmurs noted. Pulmonary: Slightly decreased at the right base but otherwise relatively clear. Good air entry. Abdomen: Soft, nontender. Minimal distention. Bowel sounds decreased but present. Extremities: Soft, nontender. Peripheral pulses intact. Neurologic: Pupils equal, round, and reactive to light. Sedation, limited exam but no obvious focal deficits. Psychiatric: The patient remains sedated. Minimal response to noxious stimuli. Skin: No new rashes or lesions identified. ASSESSMENT AND PLAN: 1. Acute hypoxic respiratory failure, pneumonia. The patient remains intubated and sedated. On antibiotics with cefepime and Zyvox. Continue antibiotics and supportive care, and monitor closely. 2. Septic shock secondary to #1. Patient remains on Levophed and has not had much success in weaning off so far. 3. Possible gastrointestinal bleed. Patient with one episode of possible melena but has not really been repeated and blood counts now stable. 4. Acute kidney injury. The patient's baseline creatinine is 1.1. It has trended up steadily over the last few days, although less of an increase today. It has gone from 2.4 to 2.5. Likely acute tubular necrosis. May be starting to turn around slightly. We will continue to monitor. Continue gentle fluids. Ultrasound showed no sign of obstruction. 5. Mantle cell lymphoma. The patient was getting radiation prior to admission. Likely contributing to various issues as above. Patient does have cachexia on exam, that is likely cancer-related. 6. Hypernatremia, resolved on last check. Monitor. 7. Metabolic acidosis. Patient with likely renal tubular acidosis. 8. Non-gap metabolic acidosis. We will change fluids to D5 bicarb and monitor. 9. Diabetes, likely diet-controlled. Hemoglobin A1c still pending. 10. Abdominal aortic aneurysm, 4.2 cm, stable. No need for acute intervention. 11. Disposition. Patient remains Do Not Resuscitate 2/full support. Prognosis remains poor. We will continue to talk to the family. Thirty-five minutes of critical care time were spent immediately available to patient, examining patient, reviewing labs, and making medical decisions. ELLA
[2019-05-09] MEDS: CLINIMIX E 4.25%-5% SOLUTION 1,000 ML IV SCH (19:48)
[2019-05-09] MEDS: LASIX IV SCH (19:50)
--- NOTE | 2019-05-09 21:56 | PULMONOLOGY PROGRESS NOTE ---
DATE: 05/09/2019 SUBJECTIVE: The patient is sedated, on mechanical ventilation. He remains on vasopressors. OBJECTIVE: Vital Signs: Maximum temperature in the last 24 hours is 100.0 degrees. BP 100/47, heart rate 70, respiratory rate 20, oxygen saturation 100%. HEENT: Pupils are equal and reactive. Oropharynx appears dry. There is bitemporal wasting. Neck: Supple. Chest: Coarse crackles throughout the right chest. Cardiac: S1-S2. Abdomen: Soft with diminished bowel sounds. Extremities: Increasing peripheral edema. LABORATORY AND DIAGNOSTIC: Chest x-ray reveals diffuse infiltrate in the right lung, which is slightly worse at the right base. White blood count 10.2, hemoglobin 9.2, platelet count 58,000. Sodium 139, potassium 4.2, chloride 108, bicarbonate 16, BUN 77, creatinine 2.5, albumin 2.3. Arterial blood gas reveals a pH of 7.25, pCO2 of 77, PO2 of 102, on 55% FiO2. Microbiology reveals no new culture data. IMPRESSION: A 74-year-old with: 1. Aspiration pneumonia. 2. Mantle cell lymphoma with active disease present. 3. Acute hypoxemic respiratory failure. 4. Acute renal failure. 5. Cirrhosis. 6. Ascites. 7. Progressive thrombocytopenia. 8. Ongoing hemodynamic shock requiring Levophed with marginal decrease in requirements over the last 24 to 48 hours. DISCUSSION: A 74-year-old with problems outlined above. The patient has multiorgan dysfunction. His prognosis is poor. Palliative Care nurse has spoken with the family. His resuscitation status has been adjusted. PLAN: 1. Continue ventilatory support. 2. Continue vasopressors. 3. Continue antibiotics. 4. Will initiate ProcalAmine. 5. Agree with bicarbonate fluid solution with metabolic acidosis. 6. Prognosis remains poor. Ongoing end-of-life discussions to be held with family. Time spent in critical care management: 30+ minutes cc: Jaron Sanches MD [facility]
[2019-05-09] MEDS: SODIUM BICARBONATE 8.4% 100 MEQ in D5W 1,000 ML IV SCH (22:33)
[2019-05-10] MEDS: DIPRIVAN 1% 1,000 MG/100 ML BOTTLE IV SCH ×3 (03:07→10:58)
[2019-05-10] MEDS: DUONEB (A & A) INH SCH ×6 (03:28→23:35)
[2019-05-10] MEDS: MAXIPIME 1 GM in NS 50 ML IV SCH ×2 (03:31→15:51)
[2019-05-10] MEDS: ZYVOX 600 MG/D5W 600 MG/300 ML IVPB IV SCH ×2 (03:32→14:30)
[2019-05-10] MEDS: LASIX IV SCH (03:32)
[2019-05-10] MEDS: SOLU-MEDROL IV SCH ×2 (03:32→15:51)
[2019-05-10 04:32] LABS: ALLEN TEST YES; BE -9.1 mmoll (-3.0-3.0); BLOOD TYPE ARTERIAL; HCO3-(ACT) 17.8 mmoll (20.0-26.0); METHB 1.4 % (0.0-1.5); O2(CT) 11.5 mL/dL (15.0-23.0); O2HB 95.3 % (95.0-99.0); PCO2(98.6) 36 mmHg (35-45); PO2(98.6) 82 mmHg (60-100); SAMPLE BLOOD; SAO2 99.3 % (95.0-100.0); SRATE 14 BPM; THB 8.5 g/dL (11.5-17.4); TVOL 500 mL; pH(98.6) 7.28 (7.35-7.45)
[2019-05-10 04:33] LABS: MODALITY VENTILATOR
[2019-05-10 06:33] LABS: BASO# 0.01 X1000 (0.0-0.2); BASO% 0.1 % (0.0-0.8); EOS# 0.01 X1000 (0.0-0.7); EOS% 0.1 % (0.0-10.0); HEMATOCRIT 26.5 % (42.0-52.0); HEMOGLOBIN 8.4 g/dL (14.0-18.0); IMM GRAN# 0.17 X1000 (0.0-0.04); LYMPH# 0.32 X1000 (1.2-3.4); LYMPH% 3.8 % (20.5-51.1); MCH 30.9 PG (27-31); MCHC 31.7 g/dL (33-37); MCV 97.4 FL (81-99); MONO# 0.67 X1000 (0.11-0.59); MONO% 7.9 % (1.7-9.3); MPV 12.7 FL (7.4-10.4); NEUT# 7.33 X1000 (1.4-6.5); NEUT% 86.1 % (42.2-75.2); PLT 64 X1000 (130-400); RBC 2.72 XMIL (4.7-6.1); RDW 18.2 % (11.5-14.5); WBC 8.51 X1000 (4.8-10.8)
--- NOTE | 2019-05-10 06:44 | Diag Imaging Result Doc PS360 ---
CHEST-PORTABLE - 05/10/2019 INDICATION: respiratory failure COMPARISON: 05/09/2019 FINDINGS: Stable endotracheal tube in good position. There has been improvement in aeration of the right lower lobe with good visualization of the right hemidiaphragm. Otherwise stable dense central alveolar infiltrates right greater than left. Heart size remains top normal. No pneumothorax or large pleural effusion. IMPRESSION: Significant improvement in aeration of the right lower lobe. Persistent dense infiltrates. Electronically signed by Allen Ruvalcaba 05/10/2019 6:41 AM
[2019-05-10 06:53] LABS: ALB/GLOB RATIO 0.9; ALBUMIN 2.3 g/dL (3.5-5.0); CALCIUM 7.7 mg/dL (8.8-10.2); CREATININE 2.5 mg/dL (0.7-1.2); POTASSIUM 4.1 mmol/L (3.5-5.1); TOTAL BILIRUBIN 0.19 mg/dL (0.20-1.00); TOTAL PROTEIN 4.8 g/dL (6.3-8.3)
[2019-05-10 07:40] LABS: HEMOGLOBIN A1C 4.8 % (4.8-6.0)
[2019-05-10] MEDS: LOVENOX SUBQ SCH (07:49)
[2019-05-10] MEDS: PROTONIX IV SCH ×3 (07:49→20:20)
[2019-05-10] MEDS: SODIUM CHLORIDE 0.9% INJ SCH (07:49)
[2019-05-10 08:01] LABS: BANDS 4 % (0-1); LYMPHS 3 % (21-51); MONO 4 % (1-9); SEGS 88 % (42-75)
[2019-05-10] MEDS: CLINIMIX E 4.25%-5% SOLUTION 1,000 ML IV SCH (08:19)
--- NOTE | 2019-05-10 09:48 | HEMO/ONC PROGRESS NOTE ---
DATE: 05/10/2019 HISTORY OF PRESENT ILLNESS/SUBJECTIVE: The patient remains sedated on mechanical ventilation. OBJECTIVE: Vital signs: Temperature 97.7 degrees, pulse rate 80, respiratory rate 22, blood pressure 127/66, O2 saturation 100% on mechanical ventilation. PHYSICAL EXAMINATION: HEENT: Pupils are equal and reactive. Oral mucosa appears dry. Respiratory: Coarse crackles throughout the right chest. Cardiovascular: Normal S1, S2 noted. Abdomen: Soft. Bowel sounds are hypoactive. There is a pulsatile mass in the epigastric area. Skin: Intact. No rashes or lesions identified. Neurological: Sedated, on pressors. LABORATORY DATA: WBCs 8.51, hemoglobin 8.4, hematocrit 26.5, platelet count 64,000. ANC 7.33, creatinine 2.5, calcium 7.7. RADIOLOGY: Chest x-ray, significant improvement in aeration of the right lower lobe. Persistent dense infiltrate. ASSESSMENT: 1. Mantle cell lymphoma. 2. Acute hypoxic respiratory failure, pneumonia. 3. Acute kidney injury. 4. Severe protein-calorie malnutrition. 5. Hypernatremia with dehydration, resolved. 6. Possible gastrointestinal bleed, monitoring. PLAN: The patient remains intubated and sedated. He is on cefepime and Zyvox. He also remains on Levophed. His prognosis appears to remain poor. Continue current management. Dictated by FRANCISCA Pradhan for Wili Luna MD Doing poorly. Continues to be intubated and on pressors. From my standpoint not much to add. Lymphoma, though treatable, is least of his concern. Multiorgan dysfunction. Poor prognosis. Continue discussions with family regarding end of life decisions. Wili Luna MD. cc: Wili Luna MD [facility]
[2019-05-10] MEDS ORDERED: ATIVAN IV PRN (12:05)
--- NOTE | 2019-05-10 12:55 | PROGRESS NOTE ---
DATE: 05/10/2019 The patient remains intubated and sedated. Remains on Levophed at minimally lower dose. Afebrile. No acute events overnight. REVIEW OF SYSTEMS: Unable to obtain secondary to patient mental status. LABS: WBC 8.5, hemoglobin 8.4, hematocrit 26.5, platelets 64,000. ABG with pH 7.28, pCO2 36, PO2 82 on the ventilator. Sodium 136, potassium 4.1, bicarb 16, BUN 80, creatinine 2.5, glucose 117. VITALS: T-max 99.1, pulse 67, respirations 18, blood pressure 96/56, O2 saturation 97% on ventilator. PHYSICAL EXAMINATION: General: No acute distress, intubated and sedated, chronically ill- appearing, cachectic. HEENT: Normocephalic, atraumatic. No cervical adenopathy. Cardiovascular: Regular rate and rhythm. No murmurs noted. Pulmonary: Slightly decreased at right base, otherwise largely clear. Abdomen: Soft, nontender, minimal distention. Bowel sounds decreased but present. Pulsatile upper abdominal mass, stable. Extremities: Peripheral pulses remain decreased but intact. No clubbing or cyanosis. Neurologic: Exam limited by sedation. Pupils remain equal, round, reactive to light. Occasional nonpurposeful movement. Psychiatric: Patient remains sedated, withdraws to noxious stimuli. Skin: No new rashes or lesions identified. ASSESSMENT AND PLAN: 1. Acute hypoxic respiratory failure, pneumonia. The patient intubated shortly after admission with saturations in 80s on nonrebreather. Has remained intubated since then. Some modest improvement in his oxygen requirements but respiratory status largely stable. On antibiotics with cefepime and Zyvox which we will continue. Leukocytosis has resolved, and he is afebrile. 2. Septic shock, likely secondary to #1. Patient remains on Levophed with minimal success in weaning. 3. Possible gastrointestinal bleed. Patient with 1 episode of possible melena but has not been repeated. Had a drop in blood counts about that same time but has been largely stable since. Continue to monitor. 4. Acute kidney injury. Baseline creatinine 1.1. Has trended up to 2.5. Remains stable at that today. Hopefully this is resolving acute tubular necrosis. Continue to monitor. Antibiotic dose adjusted. 5. Mantle cell lymphoma. Patient was getting radiation prior to admission. Likely contributing to various issues above. Cancer related cachexia as noted above. 6. Hypernatremia. Resolved on last check. Monitor. 7. Metabolic acidosis. Patient with non-gap acidosis, likely renal tubular acidosis. Minimal improvement on bicarb. We will continue bicarb and monitor. 8. Diabetes, likely diet-controlled. A1c 4.8. 9. Abdominal aortic aneurysm 4.2 cm, stable. No need for acute intervention. 10. Thrombocytopenia, likely related to kidney injury and cirrhosis. 11. Cirrhosis. New diagnosis for the patient. Identified on abdominal ultrasound. No history of heavy alcohol use. Uncertain of etiology. Bilirubin and other liver function tests essentially normal. Greater than 40 minutes critical care time spent immediately available to the patient, examining patient, reviewing labs, and making medical decisions.
[2019-05-10] MEDS: ATIVAN 20 MG in NS 190 ML IV SCH (16:40)
[2019-05-10] MEDS: SODIUM BICARBONATE 8.4% 100 MEQ in D5W 1,000 ML IV SCH (18:00)
[2019-05-10] MEDS: LEVOPHED 8 MG in D5 1/2 NS 250 ML IV SCH (20:22)
[2019-05-11] MEDS: CLINIMIX E 4.25%-5% SOLUTION 1,000 ML IV SCH ×2 (00:29→10:36)
[2019-05-11] MEDS: ATIVAN 20 MG in NS 190 ML IV SCH ×4 (01:17→19:39)
[2019-05-11] MEDS: ZYVOX 600 MG/D5W 600 MG/300 ML IVPB IV SCH ×2 (02:46→14:49)
[2019-05-11] MEDS: DUONEB (A & A) INH SCH ×6 (03:41→23:11)
[2019-05-11 04:21] LABS: ALLEN TEST YES; BE -5.5 mmoll (-3.0-3.0); BLOOD TYPE ARTERIAL; HCO3-(ACT) 20.6 mmoll (20.0-26.0); METHB 1.3 % (0.0-1.5); O2(CT) 13.2 mL/dL (15.0-23.0); O2HB 94.5 % (95.0-99.0); PCO2(98.6) 32 mmHg (35-45); PO2(98.6) 73 mmHg (60-100); SAMPLE BLOOD; SAO2 97.2 % (95.0-100.0); SRATE 14 BPM; THB 9.9 g/dL (11.5-17.4); TVOL 500 mL; pH(98.6) 7.38 (7.35-7.45)
[2019-05-11 04:22] LABS: MODALITY VENTILATOR
[2019-05-11] MEDS: SOLU-MEDROL IV SCH ×2 (04:52→16:11)
[2019-05-11] MEDS: MAXIPIME 1 GM in NS 50 ML IV SCH ×2 (04:52→16:56)
[2019-05-11 06:26] LABS: CALCIUM 7.6 mg/dL (8.8-10.2); CREATININE 2.2 mg/dL (0.7-1.2)
[2019-05-11 06:28] LABS: EOS# 0.02 X1000 (0.0-0.7); EOS% 0.3 % (0.0-10.0); HEMATOCRIT 25.9 % (42.0-52.0); HEMOGLOBIN 8.5 g/dL (14.0-18.0); IMM GRAN# 0.11 X1000 (0.0-0.04); IMM GRAN% 1.7 % (0.0-0.5); LYMPH# 0.21 X1000 (1.2-3.4); LYMPH% 3.3 % (20.5-51.1); MCH 31.4 PG (27-31); MCHC 32.8 g/dL (33-37); MCV 95.6 FL (81-99); MONO# 0.54 X1000 (0.11-0.59); MONO% 8.4 % (1.7-9.3); MPV 12.2 FL (7.4-10.4); NEUT# 5.54 X1000 (1.4-6.5); NEUT% 86.3 % (42.2-75.2); PLT 52 X1000 (130-400); RBC 2.71 XMIL (4.7-6.1); RDW 18.2 % (11.5-14.5); WBC 6.42 X1000 (4.8-10.8)
[2019-05-11 06:31] LABS: RETIC% 1.46 % (0.8-2.1); RETIC-HE 38.1 PG (28.2-36.6)
[2019-05-11 06:48] LABS: IRON SATURATION 87 %; TIBC 92 ug/dL; TOTAL IRON 80 ug/dL (53-167)
[2019-05-11 07:00] LABS: UNBOUND IRON 36 ug/dL (112-346)
[2019-05-11] MEDS: LOVENOX SUBQ SCH (07:40)
[2019-05-11] MEDS: PROTONIX IV SCH ×2 (07:40→19:40)
[2019-05-11] MEDS: SODIUM CHLORIDE 0.9% INJ SCH ×2 (07:40→19:40)
[2019-05-11 07:41] LABS: BANDS 10 % (0-1); LYMPHS 8 % (21-51); MONO 10 % (1-9); SEGS 70 % (42-75)
--- NOTE | 2019-05-11 07:57 | Diag Imaging Result Doc PS360 ---
EXAM: CHEST-PORTABLE INDICATION: respiratory failure TECHNIQUE: One view COMPARISON: 05/10/2019 FINDINGS: The ET tube is in stable position. Consolidation throughout the majority of the right lung but mainly in the perihilar region is approximately stable. Milder consolidation in the perihilar left lung is unchanged. No new consolidation is identified. Cardiac silhouette is stable. IMPRESSION: Stable chest. Electronically signed by Gustavo Garcia 05/11/2019 7:55 AM
--- NOTE | 2019-05-11 14:34 | PROGRESS NOTE ---
DATE: 05/11/2019 INTERVAL HISTORY: Patient essentially unchanged. Remains on Levophed at stable dose afebrile, remains intubated. no acute events overnight. REVIEW OF SYSTEMS: Unable to obtain secondary to patient's mental status. LABS: WBC 6.4, hemoglobin 8.5, hematocrit 25.9, platelets 52,000, retic count 38.1. ABG with pH 7.38, pCO2 32, PO2 73 on ventilator. Sodium 135, bicarb 17, BUN 85, creatinine 2.2, iron 80, TIBC 92, ferritin 1987. IMAGING: Chest x-ray grossly stable still with right-sided significant pneumonia. VITALS: T-max 99.1, pulse 87, respirations 22, blood pressure 105/60, O2 saturation 92% on ventilator. PHYSICAL EXAM: General: No acute distress, intubated, sedated, ill-appearing, cachectic. HEENT: Normocephalic, atraumatic. No cervical adenopathy. Minimal bloody material suctioned from mouth. Cardiovascular: Regular rate and rhythm. No murmurs noted. Pulmonary: Remains decreased primarily at the right base but clear anteriorly and on the left. Abdomen: Soft, nontender, mild distention stable, bowel sounds remain decreased but present, pulsatile upper abdominal mass unchanged. Extremities: Peripheral pulses decreased but intact. No clubbing or cyanosis. Neurologic: Pupils equal, round, reactive to light. Exam limited by sedation. Psychiatric: Sedated, intubated, withdraws to noxious stimuli. Skin: No new rashes or lesions identified. ASSESSMENT AND PLAN: 1. Acute hypoxic respiratory failure, pneumonia. Patient intubated shortly after admission with saturations in the 80s on nonrebreather. Has remained intubated since then. Continued very slow improvement in oxygen requirements. Continue treatment as below and monitor closely, continue antibiotics, cefepime and Zyvox. 2. Septic shock likely secondary to #1. Remains on Levophed, will continue wean as able but little progress so far. 3. Possible gastrointestinal bleed. Patient with lymphoma involving the stomach has had intermittent bleeds in the past. Had 1 episode of melena not long after admission but not been repeated. Blood counts roughly stable over last few days. 4. Acute kidney injury. Baseline creatinine 1.1. Trended up to 2.5. Likely acute tubular necrosis. Improving slightly today. Creatinine 2.2, monitor. 5. Mantle cell lymphoma, patient was getting radiation prior to admission. Cancer related cachexia is noted as above. 6. Hypernatremia resolved, monitor. 7. Metabolic acidosis likely renal tubular acidosis related to kidney dysfunction improving with bicarb. Continue bicarb at least 1 more day and monitor. 8. Diabetes, A1c 4.8, likely diet-controlled with recent weight loss. Monitor. 9. Abdominal aortic aneurysm 4.2 cm stable, no need for acute intervention. 10. Thrombocytopenia likely related to kidney injury and cirrhosis and underlying malignancy has had slow downtrend but no need for transfusion right now. Continue to monitor. 11. Cirrhosis, new diagnosis for patient identified on abdominal ultrasound. No history heavy alcohol use, uncertain of etiology but bilirubin and other liver function tests essentially normal. [facility] HOSPITALSheree
[2019-05-11] MEDS: SODIUM BICARBONATE 8.4% 100 MEQ in D5W 1,000 ML IV SCH (14:49)
[2019-05-11] MEDS: LEVOPHED 8 MG in D5 1/2 NS 250 ML IV SCH (19:44)
[2019-05-12] MEDS: CLINIMIX E 4.25%-5% SOLUTION 1,000 ML IV SCH ×2 (00:01→14:00)
[2019-05-12] MEDS: ATIVAN 20 MG in NS 190 ML IV SCH ×5 (01:41→23:12)
[2019-05-12] MEDS: ZYVOX 600 MG/D5W 600 MG/300 ML IVPB IV SCH ×2 (02:32→15:34)
[2019-05-12] MEDS: DUONEB (A & A) INH SCH ×6 (03:00→23:26)
[2019-05-12] MEDS: LEVOPHED 8 MG in D5 1/2 NS 250 ML IV SCH ×2 (04:13→21:16)
[2019-05-12 04:17] LABS: ALLEN TEST YES; BE -5.5 mmoll (-3.0-3.0); BLOOD TYPE ARTERIAL; HCO3-(ACT) 20.6 mmoll (20.0-26.0); METHB 0.7 % (0.0-1.5); O2(CT) 10.6 mL/dL (15.0-23.0); O2HB 91.6 % (95.0-99.0); PCO2(98.6) 31 mmHg (35-45); PO2(98.6) 58 mmHg (60-100); SAMPLE BLOOD; SAO2 93.8 % (95.0-100.0); SRATE 14 BPM; THB 8.2 g/dL (11.5-17.4); TVOL 500 mL; pH(98.6) 7.39 (7.35-7.45)
[2019-05-12 04:20] LABS: MODALITY VENTILATOR
[2019-05-12] MEDS: SOLU-MEDROL IV SCH ×2 (04:45→15:35)
[2019-05-12] MEDS: MAXIPIME 1 GM in NS 50 ML IV SCH ×2 (05:23→18:08)
[2019-05-12 05:50] LABS: BASO# 0.01 X1000 (0.0-0.2); BASO% 0.1 % (0.0-0.8); EOS# 0.01 X1000 (0.0-0.7); EOS% 0.1 % (0.0-10.0); HEMATOCRIT 25.1 % (42.0-52.0); HEMOGLOBIN 8.2 g/dL (14.0-18.0); IMM GRAN# 0.09 X1000 (0.0-0.04); IMM GRAN% 1.2 % (0.0-0.5); LYMPH# 0.32 X1000 (1.2-3.4); LYMPH% 4.3 % (20.5-51.1); MCH 31.2 PG (27-31); MCHC 32.7 g/dL (33-37); MCV 95.4 FL (81-99); MONO# 0.39 X1000 (0.11-0.59); MONO% 5.3 % (1.7-9.3); NEUT# 6.57 X1000 (1.4-6.5); PLT 50 X1000 (130-400); RBC 2.63 XMIL (4.7-6.1); WBC 7.39 X1000 (4.8-10.8)
[2019-05-12 06:25] LABS: CALCIUM 7.8 mg/dL (8.8-10.2); CREATININE 2.4 mg/dL (0.7-1.2); POTASSIUM 3.8 mmol/L (3.5-5.1)
[2019-05-12] MEDS: SODIUM CHLORIDE 0.9% INJ SCH ×2 (07:39→19:33)
[2019-05-12] MEDS: PROTONIX IV SCH ×2 (07:39→19:32)
[2019-05-12] MEDS: LOVENOX SUBQ SCH (07:40)
--- NOTE | 2019-05-12 07:46 | Diag Imaging Result Doc PS360 ---
EXAM: CHEST-PORTABLE INDICATION: respiratory failure TECHNIQUE: One view COMPARISON: 05/11/2019 FINDINGS: The ET tube is in stable position. Dense consolidation about the right lung and in the left perihilar region is approximately stable. No new consolidation is identified. Cardiac silhouette is stable. IMPRESSION: Stable chest. Electronically signed by Gustavo Garcia 05/12/2019 7:44 AM
[2019-05-12 08:10] LABS: BANDS 8 % (0-1); LYMPHS 2 % (21-51); MONO 8 % (1-9); SEGS 80 % (42-75)
[2019-05-12] MEDS: SODIUM BICARBONATE 8.4% 100 MEQ in D5W 1,000 ML IV SCH (12:00)
--- NOTE | 2019-05-12 13:14 | PROGRESS NOTE ---
DATE: 05/12/2019 SUBJECTIVE: Mr. Beckwith is intubated. He appears comfortable. He did open his eyes and seemed to follow me and could hear what I was saying. OBJECTIVE: Vital signs: Temp 97.4 degrees, pulse 89, respirations 22, blood pressure 141/75. HEENT: Pupils are equal and round. Lungs: Clear in all lung faria. Cardiovascular: Regular rhythm and rate without murmur or S3. Abdomen: Soft. Skin: Warm and dry. Urine output: 2700 mL. LABORATORY DATA: From this morning, white count is 7390, hematocrit 25, hemoglobin 8.2, platelet count 50,000. Sodium 128, potassium 2.8, chloride 94, BUN is 85, creatinine 2.4. Sodium is down a little bit. Chest x-ray from this morning is stable chest. ET tube in stable position. Dense consolidation about the right lung. The left perihilar space appears stable. No new consolidation appreciated. Cardiac silhouette is stable. ASSESSMENT AND PLAN: 1. Acute hypoxemic respiratory failure and pneumonia. The patient was intubated shortly after admission with saturations in the 80s, on a non-rebreather. He remained intubated since then. Continue very slow improvement in his oxygen requirements. Continue present antibiotics which are cefepime and Zyvox. 2. Septic shock, likely secondary to number 1. Remains on Levophed. Continue to wean as able. 3. Possible gastrointestinal bleed. The patient is with lymphoma involving stomach. He has had intermittent bleeds in the past, one episode of melena not long after admission but not been repeated. 4. Acute kidney injury. Baseline creatinine 1.1, trended up to 2.5, likely acute tubular necrosis. Hopefully will continue to improve. Creatinine today is at 2.4, so it has gone up a little bit. 5. Mantle cell lymphoma. The patient was getting radiation prior to admission, cancer related cachexia is noted. 6. Hyponatremia, still watching. Watch his fluid balance. 7. Metabolic acidosis, likely renal tubular acidosis related to kidney dysfunction, improving with bicarbonate. Continue bicarb at least a day or two more. 8. Diabetes. Hemoglobin A1c was 4.8, likely diet control, with recent weight loss. 9. Abdominal aortic aneurysm 4.2 cm, stable. No bleed, no acute intervention. 10. Thrombocytopenia, likely related to kidney injury and cirrhosis, underlying malignancy. There is a slow downward trend. We will watch. 11. Cirrhosis. This is a new diagnosis of cirrhosis identified on abdominal ultrasound. No history of heavy alcohol use. Uncertain of etiology. His bilirubin and liver function tests are basically normal. 12. Review of orders. The patient is on Lovenox 30 mg subcutaneous q.24 hours, cefepime 1 g IV q.12 hours, methylprednisone 40 mg IV q.12, Protonix 40 mg IV q.12, Clinimix 75 mL an hour, linezolid 600 mg IV q.12. cc: Bryson Case MD
[2019-05-12] MEDS: LOPRESSOR IV PRN (15:46)
[2019-05-13] MEDS: LOPRESSOR IV PRN ×2 (01:19→12:04)
[2019-05-13] MEDS: ZYVOX 600 MG/D5W 600 MG/300 ML IVPB IV SCH ×2 (02:45→14:46)
[2019-05-13] MEDS: CLINIMIX E 4.25%-5% SOLUTION 1,000 ML IV SCH ×2 (02:45→16:53)
[2019-05-13] MEDS: DUONEB (A & A) INH SCH ×6 (03:03→23:18)
[2019-05-13] MEDS: SOLU-MEDROL IV SCH ×2 (04:36→17:34)
[2019-05-13 05:17] LABS: ALLEN TEST YES; BE 14.6 mmoll (-3.0-3.0); BLOOD TYPE ARTERIAL; HCO3-(ACT) 36.3 mmoll (20.0-26.0); METHB 1.2 % (0.0-1.5); O2(CT) 16.2 mL/dL (15.0-23.0); O2HB 94.8 % (95.0-99.0); PO2(98.6) 87 mmHg (60-100); SAMPLE BLOOD; SAO2 97.1 % (95.0-100.0); SRATE 14 BPM; THB 12.1 g/dL (11.5-17.4); TVOL 500 mL; pH(98.6) 7.35 (7.35-7.45)
[2019-05-13 05:18] LABS: MODALITY VENTILATOR
[2019-05-13 05:19] LABS: PCO2(98.6) 79 mmHg (35-45)
[2019-05-13] MEDS: ATIVAN 20 MG in NS 190 ML IV SCH ×4 (05:30→21:14)
[2019-05-13] MEDS: MAXIPIME 1 GM in NS 50 ML IV SCH ×2 (05:41→17:34)
--- NOTE | 2019-05-13 05:54 | EKG Report ---
Test Performed on : 05/13/2019 04:03:27 AM Test Reason : EVALUATION Blood Pressure : / mmHG Vent. Rate : 120 BPM Atrial Rate : 125 BPM P-R Int : 120 ms QRS Dur : 126 ms QT Int : 336 ms P-R-T Axes : -63 052 070 degrees QTc Int : 474 ms Atrial fibrillation. with occasional premature ventricular complexes. Right bundle branch block Abnormal ECG When compared with ECG of 13-MAY-2019 03:41, (Unconfirmed) No significant change was found Confirmed by Melina CASTILLO, Mark Sears ([id number]) on 05/15/2019 8:12:09 AM
[2019-05-13 06:34] LABS: EOS# 0.01 X1000 (0.0-0.7); EOS% 0.2 % (0.0-10.0); HEMATOCRIT 22.4 % (42.0-52.0); HEMOGLOBIN 7.2 g/dL (14.0-18.0); IMM GRAN# 0.12 X1000 (0.0-0.04); LYMPH# 0.19 X1000 (1.2-3.4); LYMPH% 3.2 % (20.5-51.1); MCH 30.8 PG (27-31); MCHC 32.1 g/dL (33-37); MCV 95.7 FL (81-99); MONO# 0.29 X1000 (0.11-0.59); MONO% 4.9 % (1.7-9.3); MPV 12.5 FL (7.4-10.4); NEUT# 5.35 X1000 (1.4-6.5); NEUT% 89.7 % (42.2-75.2); PLT 43 X1000 (130-400); RBC 2.34 XMIL (4.7-6.1); RDW 17.7 % (11.5-14.5); WBC 5.96 X1000 (4.8-10.8)
[2019-05-13 06:51] LABS: CALCIUM 7.6 mg/dL (8.8-10.2); CREATININE 2.3 mg/dL (0.7-1.2); POTASSIUM 4.1 mmol/L (3.5-5.1)
[2019-05-13 07:31] LABS: BANDS 16 % (0-1); LYMPHS 2 % (21-51); SEGS 78 % (42-75)
[2019-05-13 08:09] LABS: ALLEN TEST YES; BE -5.5 mmoll (-3.0-3.0); BLOOD TYPE ARTERIAL; HCO3-(ACT) 20.6 mmoll (20.0-26.0); METHB 0.7 % (0.0-1.5); O2(CT) 10.4 mL/dL (15.0-23.0); O2HB 95.5 % (95.0-99.0); PCO2(98.6) 29 mmHg (35-45); PO2(98.6) 71 mmHg (60-100); SAMPLE BLOOD; SAO2 97.8 % (95.0-100.0); SRATE 16 BPM; THB 7.7 g/dL (11.5-17.4); TVOL 550 mL; pH(98.6) 7.41 (7.35-7.45)
--- NOTE | 2019-05-13 08:09 | Diag Imaging Result Doc PS360 ---
EXAM: CHEST-PORTABLE INDICATION: respiratory failure TECHNIQUE: One view COMPARISON: 05/12/2019 FINDINGS: The ET tube is in stable position. Bilateral dense consolidations, worse on the right, are approximately stable. No new consolidation is identified. Cardiac silhouette is stable. IMPRESSION: Stable chest. Electronically signed by Gustavo Garcia 05/13/2019 8:07 AM
[2019-05-13 08:10] LABS: MODALITY VENTILATOR
[2019-05-13] MEDS: PROTONIX IV SCH ×2 (09:15→19:45)
[2019-05-13] MEDS: LOVENOX SUBQ SCH (09:16)
[2019-05-13 12:08] LABS: INR 1.03; PROTIME 13.6 Seconds (11.0-16.0)
[2019-05-13 12:09] LABS: PTT 34.5 Seconds (22.3-41.8)
--- NOTE | 2019-05-13 12:24 | PROGRESS NOTE ---
DATE: 05/13/2019 SUBJECTIVE: Mr. Beckwith is still intubated, appears comfortable. He does respond to touch and voice. OBJECTIVE: Vital signs: Temp 98 degrees, pulse 126, respirations 26, blood pressure 124/76. HEENT: Pupils are equal and round. Lungs: Lungs are clear in all lung faria. Cardiovascular: Regular rhythm and rate without murmur or S3. Abdomen: Soft. Skin: Warm and dry. Urine output: 1700 mL. DIAGNOSTIC DATA: Chest x-ray stable. ASSESSMENT AND PLAN: 1. Acute hypoxemic respiratory failure, pneumonia. The patient was intubated shortly after admission. Saturations in the 80s on non-rebreather. Remains intubated since then. Continue to work on weaning. Antibiotics which are cefepime and Zyvox. 2. Septic shock, likely secondary to number 1. This is resolved. He is on Levophed. 3. Possible gastrointestinal bleed. The patient has lymphoma involving his stomach. He has had intermittent bleeds, one episode of melena long after admission but has not been repeated. 4. Acute kidney injury. Baseline creatinine is 1.1. It was up to 2.5, likely acute tubular necrosis. Creatinine is 2.3. 5. Mantle cell lymphoma. He is getting radiation therapy. He has cancer-related cachexia. 6. Hyponatremia. Continue to watch fluid balance. 7. Metabolic acidosis, likely renal tubular acidosis. 8. Diabetes. 9. Abdominal aortic aneurysm, stable at 4.2 cm. No sign of bleeder. No need for intervention. 10. Thrombocytopenia related to kidney injury and cirrhosis. 11. Cirrhosis, new diagnosis. No history of heavy alcohol use. 12. I have reviewed all orders. I do not see any change. cc: Bryson Case MD
--- NOTE | 2019-05-13 12:54 | PULMONOLOGY PROGRESS NOTE ---
DATE: 05/13/2019 SUBJECTIVE: The patient remains on mechanical ventilation. She ripped. He remains on vasopressor support. He is poorly responsive. OBJECTIVE: Vital Signs: The patient has been afebrile for the last 24 hours. Blood pressure 87/62, heart rate 122, respiratory rate 25, oxygen saturation 92%. HEENT: Bitemporal wasting. Oropharynx appears dry but clear. Neck: Supple Chest: Reveals diffuse rhonchi and crackles bilaterally, right greater than left. Cardiovascular: Increased rate, regular rhythm. Abdomen: Soft. Extremities: Cool to the touch. LABORATORY DATA: Chest x-ray reveals dense bilateral infiltrates, worse on the right than on the left. No change from yesterday. White blood count 5.96, hemoglobin 7.2, platelet count 43,000. Sodium 130, potassium 4.1, chloride 95, bicarbonate 17, BUN 92, creatinine 2.3. Arterial blood gas: pH 7.41, pCO2 of 29, PO2 of 71 with a lactate of 3.5. IMPRESSION: A 74-year-old with 1. Aspiration pneumonia. 2. Mantle cell lymphoma with active disease. 3. Hypoxemic respiratory failure. 4. Acute renal failure. 5. Cirrhosis. 6. Ascites. 7. Thrombocytopenia. 8. Ongoing hemodynamic shock. PLAN: 1. Continue ventilatory support. 2. Continue vasopressors. 3. Continue antibiotics. 4. Continue ProcalAmine. 5. Prognosis remains extremely poor. He is unlikely to survive this hospital stay. Time spent in critical care management 30+ minutes. cc: Jaron Sanches MD
[2019-05-13] MEDS: SODIUM BICARBONATE 8.4% 100 MEQ in D5W 1,000 ML IV SCH (13:27)
--- NOTE | 2019-05-13 17:50 | EKG Report ---
Test Performed on : 05/13/2019 03:41:05 AM Test Reason : EVAL Blood Pressure : / mmHG Vent. Rate : 088 BPM Atrial Rate : 088 BPM P-R Int : 112 ms QRS Dur : 134 ms QT Int : 362 ms P-R-T Axes : 000 058 051 degrees QTc Int : 438 ms Sinus rhythm. with premature supraventricular complexes. and with occasional premature ventricular co mplexes. Right bundle branch block Abnormal ECG When compared with ECG of 06-MAY-2019 18:52, Criteria for Septal infarct are no longer present QT has shortened Confirmed by Melian CASTILLO, Mark Sears ([id number]) on 05/15/2019 8:10:43 AM
[2019-05-14] MEDS: ATIVAN 20 MG in NS 190 ML IV SCH ×4 (02:37→18:36)
[2019-05-14] MEDS: DUONEB (A & A) INH SCH ×6 (03:22→22:40)
[2019-05-14] MEDS: ZYVOX 600 MG/D5W 600 MG/300 ML IVPB IV SCH ×2 (03:30→15:59)
[2019-05-14] MEDS: SOLU-MEDROL IV SCH ×2 (03:32→15:59)
[2019-05-14 04:36] LABS: BLOOD TYPE ARTERIAL; SAMPLE BLOOD
[2019-05-14 04:37] LABS: ALLEN TEST YES; BE -6.6 mmoll (-3.0-3.0); HCO3-(ACT) 19.8 mmoll (20.0-26.0); METHB 1.1 % (0.0-1.5); MODALITY VENTILATOR; O2HB 95.8 % (95.0-99.0); PCO2(98.6) 29 mmHg (35-45); PO2(98.6) 81 mmHg (60-100); SAO2 100.3 % (95.0-100.0); SRATE 16 BPM; THB 8.1 g/dL (11.5-17.4); TVOL 550 mL; pH(98.6) 7.39 (7.35-7.45)
[2019-05-14] MEDS: MAXIPIME 1 GM in NS 50 ML IV SCH ×2 (05:42→18:09)
[2019-05-14] MEDS: LOPRESSOR IV PRN ×2 (05:42→18:09)
[2019-05-14] MEDS: CLINIMIX E 4.25%-5% SOLUTION 1,000 ML IV SCH ×2 (05:42→19:58)
[2019-05-14 07:04] LABS: HEMATOCRIT 22.2 % (42.0-52.0); HEMOGLOBIN 7.2 g/dL (14.0-18.0); IMM GRAN# 0.07 X1000 (0.0-0.04); IMM GRAN% 1.4 % (0.0-0.5); LYMPH# 0.15 X1000 (1.2-3.4); MCH 30.9 PG (27-31); MCHC 32.4 g/dL (33-37); MCV 95.3 FL (81-99); MONO# 0.25 X1000 (0.11-0.59); MONO% 4.9 % (1.7-9.3); MPV 12.9 FL (7.4-10.4); NEUT# 4.61 X1000 (1.4-6.5); NEUT% 90.7 % (42.2-75.2); RBC 2.33 XMIL (4.7-6.1); RDW 17.6 % (11.5-14.5); WBC 5.08 X1000 (4.8-10.8)
[2019-05-14 07:08] LABS: CALCIUM 7.7 mg/dL (8.8-10.2); CREATININE 2.6 mg/dL (0.7-1.2); POTASSIUM 4.9 mmol/L (3.5-5.1)
--- NOTE | 2019-05-14 07:18 | Diag Imaging Result Doc PS360 ---
EXAM: CHEST-PORTABLE 05/14/2019 HISTORY: respiratory failure TECHNIQUE: AP portable at 0548 COMMENT: There is an endotracheal tube with its tip at the thoracic inlet. There are bilateral pleural fluid collections and extensive alveolar opacification particularly in the perihilar regions. The volume of pleural fluid on both sides has increased since 05/13/2019. IMPRESSION: Worsened pleural effusions and florid pulmonary edema. Electronically signed by Sukumar Alvarez 05/14/2019 7:15 AM
[2019-05-14 08:22] LABS: BANDS 8 % (0-1); LYMPHS 8 % (21-51); MONO 2 % (1-9); SEGS 82 % (42-75)
[2019-05-14] MEDS: PROTONIX IV SCH ×2 (08:37→19:58)
[2019-05-14] MEDS: LOVENOX SUBQ SCH (08:38)
[2019-05-14] MEDS ORDERED: LASIX IV ONE (08:45)
--- NOTE | 2019-05-14 09:32 | PROGRESS NOTE ---
DATE: 05/14/2019 SUBJECTIVE: The patient continues to be sedated and intubated. Yesterday, according to nursing staff, the heart rate has been between 110 and 120s. No other issues noted as per nursing staff overnight. He had his Levophed stopped yesterday at 11:00 in the evening. OBJECTIVE: Vital Signs: Temperature 98.4 degrees, heart rate 73, respiratory rate 27, blood pressure 111/66, and O2 saturation 93% on mechanical ventilator at FiO2 of 50%. On examination, this is a chronically ill-appearing and looking older than his stated age 74-year-old male lying in bed in no acute distress. HEENT: Head is normocephalic and atraumatic. Patient intubated. Neck: No lymphadenopathy. No thyromegaly noted. Cardiovascular: S1, S2 heard. No murmurs, gallops, or rubs. Regular rate and rhythm. Tachycardic. Respiratory: Coarse breath sounds in both pulmonary bases slightly decreased on the right. The patient is not using any accessory muscles or having work of breathing. Abdomen: Soft and apparently nontender. Minimally distended. Bowel sounds decreased but present. No organomegaly noted. Extremities: Both upper extremities are swollen. Lower extremities are not swollen. No cyanosis or clubbing noted. Neurological: Patient continues to be sedated, minimally responds to noxious stimuli. LABORATORY DATA: White cell count 5.08, hemoglobin 7.2, hematocrit 22.2, and platelets 38,000 with ABG that shows pH 7.39 with pCO2 39, and PO2 81. The patient is on ventilator at FiO2 50%. Sodium 126. Creatinine 2.6. Urine output balance is positive 3.4 L. He has made so far 575 mL of urine yesterday. ASSESSMENT AND PLAN: 1. Acute hypoxemic respiratory failure. The patient continues to be intubated. Actually, he was intubated since admission. Today, is day #[address] Sanches from pulmonary following this patient for recommendations. 2. Community-acquired pneumonia. Patient is receiving cefepime and Zyvox. The patient is afebrile. White cell count remains in the normal limits so at this point we will continue with the same management. 3. Septic shock secondary to condition. 4. Actually, we have stopped Levophed yesterday at 11:00 in the evening. Since then, his blood pressure is stable. He has been tachycardic, but upon my examination today he is doing fine. We will continue to monitor. 5. Possible GI bleeding. There has been report from previous progress note the patient has lymphoma involving his stomach with some intermittent bleeds on one episode of melena after admission, but at this point clinically no more episodes of bleeding. His hemoglobin yesterday and the day before is 7.2 so I think at this point I am going to provide one unit of blood. Then, we will go from there. 6. Acute kidney injury. His baseline creatinine is 1.1, but during the last 5 days the creatinine has been ranging between 2.5 and 2.6. I think this is most likely acute tubular necrosis. The patient is not making much urine. Last urine output over the last 24 hours is 575 mL. The x-ray from today showed worsening pleural effusion and florid pulmonary edema. At this time, I will start Lasix 100 mg IV now. Then, we will continue with 40 mg IV q.12 hours. We will consult Nephrology. 7. Mantle cell lymphoma. He is aware. Dr. Luna from Hematology/Oncology following this patient. 8. Thrombocytopenia multifactorial related to cirrhosis, and also he has been using Lovenox as DVT prophylaxis. We will stop that medication. We will switch to Arixtra 2.5 mg subcutaneous daily. We will continue to monitor CBC daily. 9. Hyponatremia aware. We will continue to monitor BMP. 10. Diabetes mellitus type 2. We will continue with sliding scale insulin and Accu-Chek before meals and also at bedtime. 11. Abdominal aortic aneurysm that is stable. Check records from admission still 4.2 cm. No signs of bleeding. No need for intervention at this time. 12. Non alcoholic liver cirrhosis. Aware. That's why probably this patient has thrombocytopenia. In any case, we will continue to monitor. 13. Code status. The patient is DNR level 2. No chest compressions or shocks allowed for him. 14. Protein-calorie malnutrition. Cachexia secondary to his mantle cell lymphoma. Also, because he is not able to eat here in the hospital, he is very sick. We will continue with Clinimix and lipids. 15. Disposition. We will continue to monitor this patient closely. We will see what the family has to say regarding prognosis. I have not seen any member with the family at bedside. We will continue to monitor. TIME SPENT: 35 minutes of critical care time were spent immediately examining patient, reviewing labs, and making medical decisions. cc: Clayton Griffin MD MTDD
[2019-05-14] MEDS: ARIXTRA SUBQ SCH (09:44)
[2019-05-14] MEDS: SODIUM BICARBONATE 8.4% 100 MEQ in D5W 1,000 ML IV SCH (10:18)
[2019-05-14 12:56] LABS: URINE SOURCE CATH
[2019-05-14 13:01] LABS: BILIRUBIN URINE NEGATIVE (NEGATIVE); BLOOD URINE MODERATE (NEGATIVE); COLOR ORANGE; GLUCOSE URINE NEGATIVE (NEGATIVE); KETONE URINE NEGATIVE (NEGATIVE); LEUKOCYTES URINE SMALL (NEGATIVE); NITRITE URINE NEGATIVE (NEGATIVE); PROTEIN URINE TRACE mg/dL (NEGATIVE); SP GRAVITY URINE 1.009; TURBIDITY URINE TURBID (CLEAR); UROBILINOGEN URINE NORMAL (NORMAL)
[2019-05-14 13:03] LABS: UR EPITHELIAL CELLS <10 /HPF (<10); URINE BACTERIA NEGATIVE /HPF; URINE RBC TNTC /HPF (<10); URINE WBC 20-40 /HPF (<10)
[2019-05-14 13:10] LABS: UR CREAT RANDOM 16.6 mg/dL (14-26); UR PROT RANDOM 35.5 mg/dL
--- NOTE | 2019-05-14 13:22 | HEMO/ONC PROGRESS NOTE ---
DATE: 05/14/2019 HPI/SUBJECTIVE: Patient remains sedated and intubated. He has had no significant events overnight. No change in status. OBJECTIVE: Vital signs: Temperature 99.6 degrees, pulse rate 82, respiratory rate 29, blood pressure 112/62, O2 saturation 94% via mechanical ventilation. PHYSICAL EXAMINATION: HEENT: Oral mucosa appears dry. Cardiovascular: Normal S1, S2. Respiratory: Coarse crackles throughout the right chest. Abdomen soft. Bowel sounds are hypoactive. Pulsatile mass less palpable this morning in the epigastric area. Skin is intact. No rashes or lesions. Musculoskeletal: +2 pitting edema to both feet. Neurological: Sedated. LABORATORY: WBCs 5.08, hemoglobin 7.2, hematocrit 22.2, platelet count 38,000. Sodium 126, creatinine 2.6, LDH 294. X-RAY: Chest x-ray: Worsened pleural effusion and florid pulmonary edema. ASSESSMENT: 1. Mantle cell lymphoma. 2. Acute hypoxic respiratory failure, pneumonia. 3. Acute kidney injury. 4. Severe protein-calorie malnutrition. 5. Hypernatremia with dehydration,resolved. 6. Possible gastrointestinal bleed, monitoring. PLAN: Patient continues to have a poor prognosis. He remains intubated and is on pressors. Continue current management. Dictated by FRANCISCA Pradhan for Wili Luna MD As above. No family around. Continue to have discussions with them regarding progress and prognosis. Wili Luna MD. cc: Wili Luna MD [facility]
--- NOTE | 2019-05-14 18:23 | NEPHROLOGY CONSULTATION ---
DATE: 05/14/2019 REASON FOR ADMISSION: Recent fall with increasing confusion . REASON FOR CONSULT: Acute kidney injury. CONSULTING PHYSICIAN: Dr. Hernandez. HPI: Mr. Beckwith is a 74-year-old white male who is currently intubated in the ICU recently on pressor support currently receiving sedation recently off Levophed yesterday evening for blood pressure support. The patient's baseline creatinine on 04/08/2019 was 1.1. He had recently presented to [facility] for recent slurred speech, altered mental status and fall. Patient is known to be having recent treatment of chemotherapy last completed on 03/12/2019. Radiation therapy per Dr. Haynes followed by Dr. Luna for non-Hodgkin lymphoma with diffuse stomach involvement on radiation. His initial blood work had showed a white count of 11.4, BUN of 58, creatinine of 1.[address] showed chronic ischemic microvascular changes with pansinusitis. Chest x-ray showed pulmonary edema and pneumonia to right hilar adenopathy. The patient was initially admitted to the floor. During his hospitalization he had acute respiratory failure, transferred to ICU, intubated and has been intubated since his admission. He is currently being followed by Dr. Sanches. Patient's BUN and creatinine have been noted to have a BUN of 104, creatinine is now up to 2.6. He is making urine 825 mL in the last 24 hours though he remains fluid volume positive. The patient is documented with sepsis. He is currently on cefepime and Zyvox. He has been acidotic and remains on sodium bicarbonate with a widening anion gap. Due to these findings we have been asked to follow this patient. He is currently a DNR level 2 secondary to his current intubation with pressor support. There is no family at the bedside. Unable to obtain review of systems. Information following has been obtained per the chart. PAST MEDICAL HISTORY: Non-Hodgkin lymphoma with diffuse stomach involvement, hypertension, diabetes mellitus type 2, hypercholesterolemia, recent GI bleed documented with EGD on March 2019. PAST SURGICAL HISTORY: Appendectomy, partial tongue resection, cataract surgery, left eye retinal reattachment and EGD. FAMILY HISTORY: Noncontributory to current event. SOCIAL HISTORY: He lives with his family. He is . Smokes for 50 years. Denies alcohol or illicit drug use. ALLERGIES: On the chart are listed as no known drug allergies. HOME MEDICATIONS: Metoprolol, multivitamin, Prilosec, Phenergan, Carafate, tramadol, vitamin B complex, zinc and a recent history of chemotherapy last again given on 03/12/2019. Patient is currently being followed by pulmonology for respiratory failure. He is being followed by Hematology-Oncology for his non-Hodgkin lymphoma with diffuse stomach involvement primary care. REVIEW OF SYSTEMS: As mentioned unable to obtain. No family available, obtained per chart. Most recent vital signs temperature is 98 degrees, blood pressure 91/55, heart rate 84, respirations 24. He has had 4242 in, 825 out to Moore catheter. LAB: Sodium 126, potassium 4.9, chloride 92, CO2 16, BUN 104, creatinine 2.6, glucose is 111, his anion gap is 18, calcium is 7.7. White count 5.08, hemoglobin 7.2, hematocrit 22.2 with a platelet count of 38,000. ABGs pH 7.39, CO2 29, PO2 81, bicarb 19.8 on 50% ventilatory support. Patient had a CT of the abdomen showing right kidney measuring 8.6, left measuring 9.7, also positive for aortic aneurysm, cirrhosis with atrophic liver and ascites. PHYSICAL EXAMINATION: This is a 74-year-old white male, he appears chronically ill, no acute distress with ventilatory support.HEENT: Normocephalic, atraumatic. Conjunctiva is slightly reddened. Left eye slower to react than right. Neck: Supple. Trachea midline. No evidence of JVD. Cardiovascular: He is regular rate and rhythm though he is tachycardic on the monitor with appearance of blocked PACs. No murmur or gallop. Lungs: Clear to auscultation bilateral. Equal excursion with poor inspiratory effort with ventilatory support. Abdomen: Soft, nontender, positive bowel sounds hypoactive, faint tinkling to the left lower quadrant. Genitourinary: Not inspected. Moore catheter is in place, adequate urine output documented. Extremities: Has dependent edema into the hip, mid abdominal region mostly dependent, left elbow greater than right, some hand swelling. Neurological: As mentioned above. ASSESSMENT AND PLAN: 1. Acute kidney injury. This appears to be ischemic ATN. Patient is documented with right lung pneumonia. He has been hypernatremic and he is hyponatremic. The patient has documented septic shock with both metabolic and anion gap acidosis. We will repeat his renal ultrasound. We will check his urine electrolytes. The patient is currently receiving adequate fluid hydration. No changes at this time. 2. Electrolytes. Patient has hyponatremia. We will change his sodium bicarbonate to 3 amps at 50 mL an hour. 3. Acid-base balance, CO2 of 16 with an anion gap of 18, pCO2 of 29. Again we will change sodium bicarbonate to 3 amps to run at 50 mL an hour. 4. Anemia. This remains low, hemoglobin 7.2 with thrombocytopenia at 38 followed by Heme-Onc. 5. Respiratory failure followed by Dr. Sanches. I would like to thank you for consult. Dictated by FRANCISCA Li for Jorje Hanley MD Face to face encounter, data reviewed, discussed with Paulina Mulligan on 05/14/19. I agree with the above assessment and plan of care. cc: FRANCISCA Li MD [facility]
--- NOTE | 2019-05-14 20:11 | PULMONOLOGY PROGRESS NOTE ---
DATE: 05/14/2019 SUBJECTIVE: The patient is sedated. He appears to be comfortable. The patient remains on vasopressors, but these are being tapered. OBJECTIVE: vital signs: BP 96/58, respiratory rate 27, heart rate 71, oxygen saturation 96% HEENT: Pupils are equal. Bitemporal wasting. Oropharynx appears dry. Neck: Supple. Chest: Diffuse rhonchi bilaterally. Cardiac: Increased rate, regular rhythm. Abdomen: Soft. Extremities: Peripheral edema 1+. LABORATORY AND DIAGNOSTIC DATA: Chest x-ray reveals increasing edema/infiltrates bilaterally. White blood count 5.08, hemoglobin 7.2, platelet count 38,000. Sodium 126, potassium 4.9, chloride 92, bicarbonate 16, anion gap 18, BUN 104, creatinine 2.6. Arterial blood gas reveals a pH of 7.39, pCO2 of 29, PO2 of 81. IMPRESSION: A 74-year-old with: 1. Aspiration pneumonia. 2. Chronic obstructive pulmonary disease. 3. Mantle cell lymphoma with active disease. 4. Acute hypoxemic respiratory failure. 5. Acute renal failure. 6. Cirrhosis. 7. Ascites. 8. Thrombocytopenia. 9. Hemodynamic shock. 10. Protein-calorie malnutrition. DISCUSSION: A 74-year-old with problems outlined above. His prognosis remains extremely poor. He has not improved despite 8 days of aggressive management. PLAN: 1. Continue ventilatory support. 2. Continue vasopressors and wean as tolerated. 3. Continue antibiotics. 4. Prognosis remains poor. Support and comfort measures will be continued. TIME SPENT: Critical care, 35 minutes. cc: Jaron Sanches MD
[2019-05-14] MEDS ORDERED: LASIX IV SCH ×2 (21:00)
[2019-05-14 21:30] LABS: PLT 38 X1000 (130-400)
[2019-05-15] MEDS: ATIVAN 20 MG in NS 190 ML IV SCH ×5 (00:07→22:06)
[2019-05-15] MEDS: DUONEB (A & A) INH SCH ×6 (03:25→23:40)
[2019-05-15] MEDS: ZYVOX 600 MG/D5W 600 MG/300 ML IVPB IV SCH (03:30)
[2019-05-15] MEDS: SOLU-MEDROL IV SCH ×2 (03:32→17:39)
[2019-05-15] MEDS ORDERED: ATIVAN 20 MG in NS 190 ML IV SCH (04:00)
[2019-05-15 04:31] LABS: ALLEN TEST YES; BE -6.7 mmoll (-3.0-3.0); BLOOD TYPE ARTERIAL; HCO3-(ACT) 19.7 mmoll (20.0-26.0); METHB 0.8 % (0.0-1.5); O2(CT) 10.9 mL/dL (15.0-23.0); O2HB 96.1 % (95.0-99.0); PCO2(98.6) 28 mmHg (35-45); PO2(98.6) 80 mmHg (60-100); SAMPLE BLOOD; SAO2 98.2 % (95.0-100.0); SRATE 16 BPM; TVOL 550 mL
[2019-05-15 04:32] LABS: MODALITY VENTILATOR
[2019-05-15] MEDS: MAXIPIME 1 GM in NS 50 ML IV SCH ×2 (05:34→17:38)
[2019-05-15 05:38] LABS: IMM GRAN# 0.05 X1000 (0.0-0.04); IMM GRAN% 1.1 % (0.0-0.5); LYMPH% 2.1 % (20.5-51.1); MONO# 0.26 X1000 (0.11-0.59); MONO% 5.5 % (1.7-9.3); MPV 12.6 FL (7.4-10.4); NEUT# 4.32 X1000 (1.4-6.5); NEUT% 91.3 % (42.2-75.2)
[2019-05-15 05:46] LABS: HEMATOCRIT 20.4 % (42.0-52.0); HEMOGLOBIN 6.8 g/dL (14.0-18.0); MCH 31.2 PG (27-31); MCHC 33.3 g/dL (33-37); MCV 93.6 FL (81-99); RBC 2.18 XMIL (4.7-6.1); RDW 16.9 % (11.5-14.5); WBC 4.73 X1000 (4.8-10.8)
[2019-05-15 06:10] LABS: PLT 28 X1000 (130-400)
[2019-05-15 06:34] LABS: ALBUMIN 2.1 g/dL (3.5-5.0); CALCIUM 7.4 mg/dL (8.8-10.2); CREATININE 2.6 mg/dL (0.7-1.2); PHOSPHORUS 8.7 mg/dL (2.7-4.5); POTASSIUM 5.2 mmol/L (3.5-5.1)
--- NOTE | 2019-05-15 06:43 | Diag Imaging Result Doc PS360 ---
CHEST-PORTABLE - 05/15/2019 INDICATION: respiratory failure COMPARISON: 05/14/2019 FINDINGS: Stable endotracheal tube in good position. There has been some improvement in the dense bilateral alveolar infiltrates, notably in the left upper lobe. Heart size remains top normal. IMPRESSION: Slight improvement in the ARDS. Electronically signed by Allen Ruvalcaba 05/15/2019 6:41 AM
[2019-05-15 07:10] LABS: BANDS 6 % (0-1); SEGS 94 % (42-75)
[2019-05-15] MEDS: SODIUM BICARBONATE 8.4% 150 MEQ in D5W 1,000 ML IV SCH (07:21)
[2019-05-15] MEDS: PROTONIX IV SCH ×2 (07:55→20:02)
[2019-05-15] MEDS: ARIXTRA SUBQ SCH ×2 (08:01→08:20)
[2019-05-15] MEDS: CLINIMIX E 4.25%-5% SOLUTION 1,000 ML IV SCH ×2 (08:01→22:06)
--- NOTE | 2019-05-15 09:26 | PROGRESS NOTE ---
DATE: 05/15/2019 SUBJECTIVE: The patient continues to be sedated and intubated. According to nursing staff, platelets has been order for transfusion because platelet continues to drop. No other issues noted by nursing staff. OBJECTIVE: Vitals: Temperature 98.7 degrees, heart rate 111, respiratory rate 24, blood pressure 100/65, and O2 saturation 95% on mechanical ventilator with FiO2 of 50%. General: This is a chronically ill-appearing and looking older than his stated age 74-year-old male lying in bed in no acute distress. HEENT: Head is normocephalic, atraumatic. Mucous membranes dry. Patient intubated. Neck: No JVD noted. No carotid bruits. No lymphadenopathy. No thyromegaly. Cardiovascular: S1 and S2 heard. No murmurs, gallops, or rubs. Regular rate and rhythm. Tachycardic. Respiratory: Coarse breath sounds noted in both pulmonary bases and slightly decreased on the right. Patient not using any accessory muscles or having work of breathing. Abdomen: Soft. Nontender to palpation apparently. Minimally distended. Bowel sounds present but decreased. No organomegaly noted. Extremities: Both hands are swollen. Lower extremities done also, and no cyanosis or clubbing noted. Neurological: The patient continues to be sedated. Minimal response to noxious stimuli. LABORATORY DATA: White cell count 4.73, hemoglobin 6.8, hematocrit 28.4, and platelets 28,000. ABG shows pH 7.40 with pCO2 28, PO2 80 that was taken on ventilator at FiO2 50% with sodium 123, potassium 5.2, creatinine 2.6, and albumin 2.1. ASSESSMENT AND PLAN: 1. Acute hypoxemic respiratory failure on ventilator. The patient continues to be intubated. He has been intubated since admission. Today is day #9 of hospital stay. We will continue Zocor, 15% oxygen via ventilator. Dr. Sanches for pulmonary following this patient. 2. Community-acquired pneumonia. Patient is on cefepime and Zyvox. The patient afebrile. White cell count is normal. We will continue with the same management. 3. Septic shock secondary to condition #2. Levophed has been stopped the day before yesterday at 11:00 in the evening. Blood pressure is still stable though. We will continue with the same medications. 4. Possible GI bleeding. Hemoglobin has dropped to 6.8, and platelets have dropped as well. At this point, I have seen that 1 unit of platelets has been ordered. I am going to order also 1 unit of blood as well. 5. Acute kidney injury. Creatinine on admission was 1.1, but it is around 2.5 during the last 5 days. Because he is not making good urine and his balance has been positive almost since admission, I prefer to start Lasix and consult nephrology. They have increased the dose of Lasix to 200 mg IV q.12 hours. We will continue with the same management. 6. Mantle cell lymphoma. Aware. Not a candidate for treatment right now. 7. Thrombocytopenia secondary to this lymphoma. According to Dr. Luna, we will transfuse 1 unit of platelets and then we will go from there. 8. Hyponatremia aware. Diabetes mellitus type 2. We will continue with sliding scale insulin and Accu-Chek's before meals and also at bedtime. 9. Non alcoholic liver cirrhosis. Aware. We will continue to monitor. 10. Code Status DNR Level 2. 11. Protein calorie malnutrition. Patient is on Clinimix and lipids. He is cachectic secondary to his mantle cell lymphoma. 12. Disposition: At this point, we will continue to monitor this patient in intensive care unit. His prognosis is very poor. We are going to try to contact his and try to talk to her in person to explain to her the clinical situation of the patient and his poor prognosis. cc: Clayton Griffin MD MTDD
[2019-05-15] MEDS: LASIX IV SCH ×2 (10:14→20:02)
[2019-05-15] MEDS ORDERED: VANCOMYCIN IV PER PHARMACY MISC SCH (13:15)
--- NOTE | 2019-05-15 15:59 | NEPHROLOGY PROGRESS NOTE ---
DATE: 05/15/2019 Date Seen: 05/15/2019 Time Seen: 0700. SUBJECTIVE: Mr. Beckwith is resting quietly in bed head of the bed is slightly elevated. He remains intubated and sedated. OBJECTIVE: Vital Signs: Temperature 97.5 degrees, blood pressure 110/59, heart rate 115, respirations are 22. He is on 50% FiO2. His last recorded saturation 97%. He has had 4660 in, 1475 out to Moore catheter. He remains on IV fluid positive. LABORATORY DATA: Sodium is 123, potassium 5.2, chloride is 87, CO2 16, BUN 122, creatinine is 2.6 with a glucose 121. White count 4.73, hemoglobin 6.8, hematocrit 20.4, with a platelet count of 28,000. Anion gap 20, calcium 7.4, phosphorus 8.7, albumin 2.1. The patient is currently having a type and cross-match for transfusion today per primary care. PHYSICAL EXAMINATION: General: This is a 74-year-old white male resting quietly in bed. He remains sedated, ventilator dependent. Appears chronically ill. HEENT: Normocephalic, atraumatic, conjunctiva is pale. Mucous membranes are dry. Oral ET tube remains in place. Neck: Supple, trachea midline. No evidence of JVD. Cardiovascular: Regular rate and rhythm. He is tachycardic on the monitor. He does appear to have blocked PACs with questionable pauses on the telemetry, non measured. No murmur or gallop appreciated. Lungs: Clear to auscultation bilaterally. Equal excursion. Remains with ventilatory support. Abdomen: Slightly distended. No tenderness present. Faint tinkling bowel sounds remain present. Hypoactive. Genitourinary: Not inspected. Moore catheter is in place. Extremities: Does have dependent edema into the hips, 2+ into the now thigh/ hip region, 1+ lower extremity. Neurological: As mentioned above. ASSESSMENT AND PLAN: 1. Acute kidney injury, ischemic acute tubular necrosis. The patient has documented right lung pneumonia. He is in septic shock with metabolic and anion gap acidosis. Ultrasound was negative. Continues to receive adequate fluid hydration. No changes. 2. Electrolytes/acid-base. patient remains hyponatremic. Sodium now down to 123. We will change his sodium bicarbonate to 3 amps to continue at 50 mL an hour. 3. Anemia remains below target. He is now being typed and cross-matched followed by hematology- oncology. 4. Respiratory failure followed by Dr. Sanches. I would like to thank you for allowing us to follow with this patient. Dictated by FRANCISCA Li for Jorje Hanley MD Face to face encounter, data reviewed, discussed with Paulina Mulligan on 05/15/19. I agree with the above assessment and plan of care. cc: FRANCISCA Li MD [facility]
[2019-05-15] MEDS ORDERED: VANCOMYCIN 1.7 GM in NS 250 ML IV ONE (16:00)
--- NOTE | 2019-05-15 16:21 | HEMO/ONC PROGRESS NOTE ---
DATE: 05/15/2019 SUBJECTIVE: The patient remains sedated and intubated. He had no significant events overnight. However, it is noted that he is now thrombocytopenic. OBJECTIVE: Vital Signs: Temperature 98.7 degrees, pulse rate 116, respiratory rate 26, blood pressure 120/81, O2 saturation 91% on mechanical ventilation. He appears to be in 0/10 pain. General: This is a chronically ill, elderly-appearing male, in no acute distress. HEENT: Oral mucosa appears dry. Cardiovascular: Normal S1, S2. No murmurs, rubs, or gallops. Regular rate and rhythm. Respiratory: Coarse breath sounds noted in pulmonary bases. Abdomen: Soft. Nontender to palpation. Bowel sounds hypoactive. Extremities: Bilateral hands and feet are edematous. Neurological: Sedated. LABORATORY: WBCs 4.73, hemoglobin 6.8, hematocrit 20.4, platelet count 28,000. ANC 4.32. Sodium 123, potassium 5.2, creatinine 2.6. Chest x-ray shows slight improvement in ARDS. ASSESSMENT: 1. Mantle cell lymphoma. 2. Acute hypoxic respiratory failure, pneumonia. 3. Acute kidney injury. 4. Severe protein-calorie malnutrition. 5. Hypernatremia with dehydration, resolved. 6. Possible gastrointestinal bleed, monitoring. PLAN: The patient continues to have a significantly poor prognosis. He now has thrombocytopenia. This is possibly due to Zyvox. Dr. Luna has stopped the Zyvox. Please discuss with Dr. Hernandez to add another antibiotic if needed. Hold the Arixtra until the platelets recover. Please transfuse 1 unit of platelets if needed. Continue to have discussions with the family regarding his poor prognosis. Dictated by FRANCISCA Pradhan for Wili Luna MD cc: Wili Luna MD [facility]
--- NOTE | 2019-05-15 19:19 | PULMONOLOGY PROGRESS NOTE ---
DATE: 05/15/2019 SUBJECTIVE: The patient appears sedated. He appears comfortable on mechanical ventilation. He is now off vasopressors. OBJECTIVE: Blood pressure 97/56, heart rate 77, respiratory rate 22, oxygen saturation 97%. HEENT: Pupils are equal and reactive. Oropharynx appears clear, but evaluation is limited. There is bitemporal wasting. Neck is supple. Chest reveals diffuse rhonchi throughout all lung faria. Cardiac exam: Increased rate, regular rhythm. Abdomen is soft, with diminished bowel sounds. Extremities reveal 1+ peripheral edema. DIAGNOSTIC DATA: Chest x-ray reveals diffuse bilateral infiltrates with marginal decrease in density. LABORATORY DATA: White blood count 4.7, hemoglobin 6.8, platelet count 28,000. Sodium 123, potassium 5.2, chloride 87, bicarbonate 16, BUN 122, creatinine 2.6, albumin 2.1. Arterial blood gas reveals a pH of 7.40, pCO2 of 28, pO2 of 80, with a lactate of 3.4. IMPRESSION: A 74-year-old with: 1. Aspiration pneumonia. 2. Acute hypoxemic respiratory failure. 3. Mantle cell lymphoma with active disease. 4. Acute hypoxemic respiratory failure. 5. Acute renal failure. 6. Cirrhosis with ascites. 7. Thrombocytopenia. 8. Protein-calorie malnutrition. DISCUSSION: A 74-year-old with problems outlined above. Renal failure continues to progress. With his age, COPD, ascites with cirrhosis, severe protein-calorie malnutrition, and incomplete treatment of his mantle cell lymphoma, it is unlikely that dialysis will change his outcome. I will leave this to the discretion of Nephrology. PLAN: 1. Continue ventilatory support. 2. Continue Clinimix at current rate. 3. Continue antibiotics. 4. Poor prognosis. Family continues to request aggressive care, but I have been unable to talk to them at the bedside. Time spent in critical care management 35 minutes. cc: Jaron Sanches MD
[2019-05-16] MEDS: ATIVAN 20 MG in NS 190 ML IV SCH ×4 (03:21→19:14)
[2019-05-16] MEDS: DUONEB (A & A) INH SCH ×5 (04:00→19:32)
[2019-05-16] MEDS: SOLU-MEDROL IV SCH ×2 (04:22→17:14)
[2019-05-16] MEDS: MAXIPIME 1 GM in NS 50 ML IV SCH ×2 (04:22→17:14)
[2019-05-16 04:50] LABS: ALLEN TEST YES; BLOOD TYPE ARTERIAL; HCO3-(ACT) 20.3 mmoll (20.0-26.0); METHB 1.2 % (0.0-1.5); O2(CT) 12.2 mL/dL (15.0-23.0); O2HB 96.1 % (95.0-99.0); PCO2(98.6) 29 mmHg (35-45); PO2(98.6) 102 mmHg (60-100); SAMPLE BLOOD; SAO2 98.8 % (95.0-100.0); SRATE 16 BPM; THB 8.9 g/dL (11.5-17.4); TVOL 550 mL
[2019-05-16 04:58] LABS: MODALITY VENTILATOR
[2019-05-16 05:54] LABS: HEMATOCRIT 19.9 % (42.0-52.0); HEMOGLOBIN 6.6 g/dL (14.0-18.0); IMM GRAN# 0.05 X1000 (0.0-0.04); IMM GRAN% 1.2 % (0.0-0.5); LYMPH# 0.09 X1000 (1.2-3.4); LYMPH% 2.1 % (20.5-51.1); MCH 30.8 PG (27-31); MCHC 33.2 g/dL (33-37); MONO# 0.17 X1000 (0.11-0.59); MPV 12.7 FL (7.4-10.4); NEUT# 3.97 X1000 (1.4-6.5); NEUT% 92.7 % (42.2-75.2); PLT 55 X1000 (130-400); RBC 2.14 XMIL (4.7-6.1); RDW 17.1 % (11.5-14.5); WBC 4.28 X1000 (4.8-10.8)
[2019-05-16 06:18] LABS: ALBUMIN 2.3 g/dL (3.5-5.0); CALCIUM 7.4 mg/dL (8.8-10.2); CREATININE 2.8 mg/dL (0.7-1.2); PHOSPHORUS 9.9 mg/dL (2.7-4.5); POTASSIUM 5.4 mmol/L (3.5-5.1)
[2019-05-16 06:26] LABS: BANDS 2 % (0-1); LYMPHS 1 % (21-51); MONO 3 % (1-9); SEGS 93 % (42-75)
[2019-05-16] MEDS: SODIUM BICARBONATE 8.4% 150 MEQ in D5W 1,000 ML IV SCH (06:26)
--- NOTE | 2019-05-16 07:26 | Diag Imaging Result Doc PS360 ---
EXAM: CHEST-PORTABLE INDICATION: respiratory failure TECHNIQUE: One view COMPARISON: 05/15/2019 FINDINGS: ET tube is in stable position. Dense infiltrates throughout the right lung is approximately stable. There has probably been marginal improvement of the milder consolidation on the left. No new consolidation is identified. Cardiac silhouette is stable. IMPRESSION: Questionable marginal improvement of the milder consolidation on the left. Stable chest, otherwise. Electronically signed by Gustavo Garcia 05/16/2019 7:24 AM
[2019-05-16] MEDS ORDERED: NS 500 ML IV ONE (07:40)
[2019-05-16] MEDS: PROTONIX IV SCH ×2 (08:21→20:29)
[2019-05-16] MEDS: LASIX IV SCH ×2 (08:21→20:29)
[2019-05-16] MEDS: ARIXTRA SUBQ SCH (08:26)
--- NOTE | 2019-05-16 10:34 | PROGRESS NOTE ---
DATE: 05/16/2019 SUBJECTIVE: Patient continues to be sedated and intubated. Apparently, he has been having episodes of bradycardia and patient breathing slowly, but now he is breathing fine. No other issues noted. OBJECTIVE: Vital Signs: Temperature 97.8 degrees, heart rate 82, respiratory rate 24, blood pressure 121/71, O2 saturation 99% on mechanical ventilator. FiO2 50%. General: This is a chronically ill appearing, malnourished, and looking older than his stated age. A 74-year-old male lying in bed in no acute distress. HEENT: Head is normocephalic, atraumatic. Mucous membranes dry. Patient intubated. Neck: No JVD noted. No carotid bruits. No lymphadenopathy. No thyromegaly. Cardiovascular: S1, S2 heard. No murmurs, gallops, or rubs. Regular rate and rhythm. Respiratory: Coarse breath sounds noted all over both pulmonary faria. Slightly decreased in the right base. Patient not using any accessory muscles or having work of breathing. Abdomen: Soft. Nontender to palpation. Minimally distended. Bowel sounds present, but decreased. No organomegaly noted. Extremities: Both hands continues to be swollen. On lower extremity, there is no clubbing or cyanosis noted. Neurological: Patient is to be sedating. Minimal response to noxious stimuli. LABORATORY DATA: White cell count 4.3, hemoglobin 6.6, hematocrit 19.9, and platelets 55,000 with ABG that shows pH 7.4, with pCO2 39, PO2 102, sodium 134, potassium 5.4 and creatinine 2.8. The urine output indicates the balance is still positive. He has made 2.1 L of urine. ASSESSMENT AND PLAN: 1. Acute hypoxemic respiratory failure on ventilator. The patient is to be intubated, today is day #10 of hospital stay. The patient continues to require FI02 of 50%. Dr. Sanches following this patient. We will follow recommendations. 2. Community-acquired pneumonia. The patient is on cefepime and Zyvox has been changed to vancomycin because of thrombocytopenia. 3. Septic shock secondary to condition #2. Levophed has been stopped. 4. Possible GI bleeding. Hemoglobin continues to drop so we are going to transfuse 2 units of blood. I do not think he is a candidate for any endoscopy. 5. Acute kidney injury. The patient continues to make urine. He is receiving furosemide 200 mg IV q.12 hours. 6. Mantle cell lymphoma. However, not a candidate for any treatment right now. 7. Thrombocytopenia. Patient has received 1 unit of platelets yesterday, and we had to stop Zyvox so platelet count is better. 8. Hyponatremia aware. 9. Diabetes mellitus type 2. We will continue with sliding scale insulin and Accu-Chek before meals and also at bedtime. 10. Non alcoholic liver cirrhosis. Aware. We will continue to monitor. 11. Code status. Do not resuscitate level 2. 12. Protein-calorie malnutrition. Patient is on Clinimix and Plavix. He is cachectic secondary to this mantle cell lymphoma. DISPOSITION: At this point, the patient is not improving. We are waiting for , she is supposed to come today at 2:00 in the afternoon to meet with Brandee from palliative care to establish goals of care. In the meantime, we will continue to monitor this patient closely. cc: Clayton Griffin MD
[2019-05-16] MEDS: CLINIMIX E 4.25%-5% SOLUTION 1,000 ML IV SCH (12:16)
--- NOTE | 2019-05-16 12:53 | HEMO/ONC PROGRESS NOTE ---
DATE: 05/16/2019 SUBJECTIVE: The patient remains sedated and intubated. No significant events overnight. He has begun to develop a Ariel terminal ulcer on his sacrum. OBJECTIVE: Vital Signs: Temperature 97.9 degrees, pulse rate 115, respiratory rate 24, blood pressure 89/65, O2 saturation 95% on mechanical ventilation. Pain: He does not appear to be in any pain. General: This is a chronically ill elderly appearing male, in no acute distress. HEENT: Oral mucosa appears dry. Cardiovascular: Normal S1 and S2. No murmurs, rubs, or gallops. Tachycardic rate and rhythm. Respiratory: Coarse breath sounds noted bilaterally. Abdomen: Soft. Nontender to palpation. Minimally distended. Bowel sounds hypoactive. Extremities: Bilateral hands and feet are edematous. Neurological: Sedated. Minimal responseto noxious stimuli. DIAGNOSTIC STUDIES: WBCs 4.28, hemoglobin 6.6, hematocrit 19.9, platelet count 55,000, ANC 3.97. Sodium 124, potassium 5.4, creatinine 2.8. Radiology: Chest x-ray shows questionable marginal improvement of the milder consolidation on the left. Stable chest, otherwise. ASSESSMENT: 1. Mantle cell lymphoma. 2. Acute hypoxic respiratory failure, pneumonia. 3. Acute kidney injury. 4. Severe protein-calorie malnutrition. 5. Hypernatremia with dehydration, resolved. 6. Possible gastrointestinal bleed, monitoring. PLAN: The patient continues to have significantly poor prognosis. We understand the family is coming in today to have further discussions regarding palliative end-of-life care. The patient's thrombocytopenia appears to be improving since stopping Zyvox. You may resume the Arixtra today. Transfuse as needed for low hemoglobin and hematocrit. We will continue to follow. Dictated by FRANCISCA Pradhan for Wili Luna MD cc: Wili Luna MD [facility]
--- NOTE | 2019-05-16 20:17 | NEPHROLOGY PROGRESS NOTE ---
DATE: 05/16/2019 TIME SEEN: 0645. SUBJECTIVE: Mr. Beckwith remains ventilator-dependent, nonreactive, Ativan support. OBJECTIVE: His most recent vital signs, temperature 97.8 degrees, blood pressure 112/70, heart rate is 114, respirations 22. He is currently on 50% FiO2 with last recorded saturation 97%. He has had 4684 in, 2125 out to Moore catheter LABORATORY DATA: Sodium 124, potassium 5.4, chloride is 86, CO2 is 16, BUN 126, creatinine 2.8, glucose 106. His anion gap is 22. His calcium 7.4, phosphorus 9.9, albumin 2.3. White count 4.28, hemoglobin 55, hematocrit 6.6, with a platelet count of 19.9. PHYSICAL EXAMINATION: General: This is a 74-year-old, white male, who is ventilator-dependent with sedation. He appears chronically ill, in no acute distress. Skin: Warm and dry. HEENT: Normocephalic, atraumatic. Mucous membranes are dry. The patient remains orally intubated. Neck: Supple. Trachea midline. No evidence of JVD. Cardiovascular: Regular rate and rhythm. S1-S2 noted without murmur or gallop. Lungs: Coarse breath sounds bilaterally. Equal excursion with ventilatory support. Abdomen: Soft, nontender. Hypoactive bowel sounds. Extremities: No edema to the lower extremities. Hands appear swollen. These are dependent. Neurological: As above. ASSESSMENT AND PLAN: Acute kidney injury. The patient continues to make urine with Lasix. No changes to his creatinine. There are no indications for intervention. We have discussed that patient is not a dialysis candidate. We have nothing to add currently so we will sign off and remain available if needed. We would like to thank you for allowing us to follow with this patient. Dictated by FRANCISCA Li for Jorje Hanley MD Face to face encounter, data reviewed, discussed with Paulina Mulligan on 05/17/19. I agree with the above assessment and plan of care. cc: FRANCISCA Li [facility]
[2019-05-16] MEDS: SODIUM CHLORIDE 0.9% INJ SCH (20:29)
[2019-05-17] MEDS: CLINIMIX E 4.25%-5% SOLUTION 1,000 ML IV SCH ×2 (00:09→14:16)
[2019-05-17] MEDS: DUONEB (A & A) INH SCH ×4 (00:18→11:48)
[2019-05-17] MEDS: SOLU-MEDROL IV SCH (03:42)
[2019-05-17] MEDS: MAXIPIME 1 GM in NS 50 ML IV SCH (04:29)
[2019-05-17 04:46] LABS: ALLEN TEST YES; BE -5.4 mmoll (-3.0-3.0); BLOOD TYPE ARTERIAL; HCO3-(ACT) 20.7 mmoll (20.0-26.0); METHB 1.2 % (0.0-1.5); O2(CT) 14.6 mL/dL (15.0-23.0); O2HB 96.2 % (95.0-99.0); PCO2(98.6) 32 mmHg (35-45); PO2(98.6) 94 mmHg (60-100); SAMPLE BLOOD; SAO2 99.2 % (95.0-100.0); SRATE 16 BPM; THB 10.7 g/dL (11.5-17.4); TVOL 550 mL; pH(98.6) 7.38 (7.35-7.45)
[2019-05-17 04:48] LABS: MODALITY VENTILATOR
[2019-05-17] MEDS: SODIUM BICARBONATE 8.4% 150 MEQ in D5W 1,000 ML IV SCH (05:13)
[2019-05-17 05:32] LABS: ALBUMIN 2.5 g/dL (3.5-5.0); CREATININE 2.7 mg/dL (0.7-1.2); PHOSPHORUS 10.5 mg/dL (2.7-4.5); POTASSIUM 5.1 mmol/L (3.5-5.1)
[2019-05-17 05:33] LABS: HEMOGLOBIN 10.4 g/dL (14.0-18.0); IMM GRAN# 0.04 X1000 (0.0-0.04); IMM GRAN% 0.8 % (0.0-0.5); LYMPH# 0.15 X1000 (1.2-3.4); LYMPH% 3.1 % (20.5-51.1); MCH 30.8 PG (27-31); MCHC 34.7 g/dL (33-37); MCV 88.8 FL (81-99); MONO% 4.1 % (1.7-9.3); MPV 12.6 FL (7.4-10.4); NEUT# 4.51 X1000 (1.4-6.5); PLT 43 X1000 (130-400); RBC 3.38 XMIL (4.7-6.1); RDW 16.1 % (11.5-14.5)
[2019-05-17] MEDS: ATIVAN 20 MG in NS 190 ML IV SCH ×2 (06:26→12:00)
--- NOTE | 2019-05-17 07:46 | Diag Imaging Result Doc PS360 ---
EXAM: CHEST-PORTABLE INDICATION: respiratory failure TECHNIQUE: One view COMPARISON: 05/16/2019 FINDINGS: ET tube is in stable position. Dense consolidation throughout the right lung and the milder consolidation on the left around the perihilar region is approximately stable. No new consolidation is identified. Cardiac silhouette is stable. IMPRESSION: Stable chest. Electronically signed by Gustavo Garcia 05/17/2019 7:44 AM
--- NOTE | 2019-05-17 08:28 | PULMONOLOGY PROGRESS NOTE ---
DATE: 05/16/2019 SUBJECTIVE: The patient is sedated. He appears to be comfortable. OBJECTIVE: Vital Signs: The patient has been afebrile for the last 24 hours. Blood pressure 139/77, heart rate 80, respiratory rate 18, and oxygen saturation 96% on mechanical ventilation. HEENT: Pupils are equal and reactive. Oropharynx appears clear. Neck: Supple. Lungs: Chest reveals diffuse crackles throughout all lung faria. Cardiac: S1, S2. Abdomen: Soft. Extremities: Reveals increasing peripheral edema. LABORATORIES: White blood count 4.28, hemoglobin 6.6, and platelet count 55,000. Arterial blood gas 7.40, pCO2 of 29, PO2 of 102 with a lactate of 3.9. Microbiology reveals no new data. Chest x-ray reveals diffuse bilateral infiltrates. No real change. IMPRESSION: A 74-year-old with the followin. Aspiration pneumonia. 2. Acute hypoxemic respiratory failure. 3. Acute renal failure. 4. Acute hypoxemic respiratory failure. 5. Cirrhosis with ascites. 6. Thrombocytopenia. 7. Mantle cell lymphoma with active disease in the abdomen. 8. Protein calorie malnutrition. DISCUSSION: A 74-year-old with problems as outlined above. He has multiorgan dysfunction syndrome along with active malignancy. His prognosis remains dismal. There has been a discussion with the family today by Dr. Hernandez, and there is a tentative plan for a compassionate extubation tomorrow. PLAN: 1. Continue current ventilatory support. 2. Continue antibiotics and nutrition. 3. Positive possible palliative extubation with comfort measures tomorrow as outlined above. Time spent in critical care management: 30+ minutes cc: Jaron Sanches MD [facility]
[2019-05-17] MEDS: LASIX IV SCH (08:39)
[2019-05-17] MEDS: PROTONIX IV SCH (08:43)
[2019-05-17] MEDS: SODIUM CHLORIDE 0.9% INJ SCH (08:43)
[2019-05-17] MEDS: ARIXTRA SUBQ SCH (08:43)
--- NOTE | 2019-05-17 12:16 | PROGRESS NOTE ---
DATE: 05/17/2019 SUBJECTIVE: The patient continues to be sedated and intubated. No acute issues noted as per nursing staff overnight. OBJECTIVE: Vital Signs: Temperature 98.2 degrees, heart rate 115, respiratory rate 16, blood pressure 117/79, O2 saturation 96% on mechanical ventilator at FiO2 of 50%. General: This is a chronically ill appearing and malnourished, looking older than his stated age, 74-year-old male, lying in bed, in no acute distress. HEENT: Head is normocephalic, atraumatic. Mucous membranes dry. Patient intubated. Neck: No JVD noted. No carotid bruits. No lymphadenopathy. No thyromegaly. Cardiovascular: S1, S2 heard. No murmurs, gallops, or rubs. Regular rate and rhythm. Respiratory: The patient continues to have coarse breath sounds noted in both pulmonary faria, mostly noted in both bases and slightly decreased in the right base. Patient is not using any accessory muscles or having work of breathing. Abdomen: Soft, minimally distended. Bowel sounds present, but decreased. No organomegaly noted. Extremities: Both hands continue to be swollen. Lower extremities, there is no clubbing or cyanosis noted. Neurological: Patient is sedated and intubated. Minimal response to noxious stimuli. LABORATORY DATA: Reviewed. ASSESSMENT AND PLAN: 1. Acute respiratory failure on ventilator. The patient has been intubated since admission. Today is day #11 of hospitalization. Unfortunately, this patient continues to be ventilator dependent. 2. Community-acquired pneumonia. Patient on cefepime and vancomycin. Zyvox has been discontinued today because of thrombocytopenia. 3. Septic shock secondary to condition #2. Levophed has been stopped 3 days ago. Will continue to monitor. 4. Possible gastrointestinal bleeding. Hemoglobin has been low, yesterday to 6.6 and because of this drop in hemoglobin he has been transfused 2 units of blood. This patient's hemoglobin is 10.4 today. 5. Acute kidney injury. The patient is on furosemide 200 mg IV q.12 hours, is still making some urine. 6. Mantle cell lymphoma. Aware, but unfortunately not a candidate for any treatment right now because of current medical condition. 7. Pancytopenia. The patient received 1 unit of platelets yesterday. Platelet count today is 43,000. 8. Hyponatremia. Will continue to monitor BMP. 9. Diabetes mellitus type 2. We will continue with sliding scale insulin. Accu-Chek before meals and also at bedtime. 10. Non alcoholic liver cirrhosis. Aware. Will continue to monitor. 11. Code status. Do Not Resuscitate level 2. 12. Protein-calorie malnutrition. Patient is on Clinimix and Plavix. 13. 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 14. Disposition. I have talked with the and brother and I made them aware of the poor prognosis of this patient. After the conversation they decided to proceed with withdrawal of care and terminal extubation today around 2 p.m. once both sons are here in the hospital. Definitely we will honor their wishes. cc: Clayton Griffin MD [facility]
--- NOTE | 2019-05-17 12:41 | HEMO/ONC PROGRESS NOTE ---
DATE: 05/17/2019 SUBJECTIVE: The patient remains sedated and intubated. He had no significant events overnight. OBJECTIVE: Vital Signs: Temperature 98.2 degrees, pulse rate 82, respiratory 21, blood pressure 124/70, O2 saturation 97. He is in 0/10 pain. General: This is a chronically ill, elderly- appearing male in no acute distress. HEENT: Oral mucosa appears dry. Intubation tube in place. Cardiovascular: Normal S1, S2. No murmurs, rubs, or gallops. Respiratory: Coarse breath sounds noted bilaterally. Abdomen: Soft, nontender to palpation. Minimally distended. Bowel sounds hypoactive. Extremities: Bilateral hands and feet are edematous. LABORATORY: WBCs 4.9, hemoglobin 10.4, hematocrit 30, platelet count 43. ANC 4.51. Sodium 125, potassium 5.1, creatinine 2.7. ASSESSMENT: 1. Mantle cell lymphoma. 2. Acute hypoxic respiratory failure, pneumonia. 3. Acute kidney injury. 4. Severe protein-calorie malnutrition. 5. Hypernatremia with dehydration, resolved. 6. Possible gastrointestinal bleeding, monitoring. PLANS: It is my understanding that when both sons arrive today, they have decided to withdrawal care and terminally extubate the patient. This is supposed to occur approximately 2 p.m. We will continue to follow the patient as needed. Please call us if we are needed. Dictated by FRANCISCA Pradhan for Wili Luna MD cc: Wili Luna MD [facility]
[2019-05-17] MEDS ORDERED: ATIVAN IV ONE (14:19)
[2019-05-17] MEDS ORDERED: MORPHINE IV ONE (14:20)
[2019-05-17] MEDS ORDERED: TRANSDERM-SCOP TD SCH (14:30)
[2019-05-17 15:37] VITALS: BP 124/65
[2019-05-17] MEDS: ATIVAN IV PRN ×2 (15:39→17:29)
[2019-05-17] MEDS: MORPHINE IV PRN ×2 (15:40→17:29)
[2019-05-17] MEDS ORDERED: VANCOMYCIN 1.3 GM in NS 250 ML IV SCH (16:00)
--- NOTE | 2019-05-17 20:13 | PULMONOLOGY PROGRESS NOTE ---
DATE: 05/17/2019 SUBJECTIVE: The patient is sedated and comfortable on mechanical ventilation. OBJECTIVE: Heart rate 121, blood pressure 122/76, oxygen saturation 97%. HEENT: Bitemporal wasting. Oropharynx appears clear. Neck: Supple. Chest: Diffuse rhonchi bilaterally. Cardiac: Increased rate, regular rhythm. Abdomen: Soft with no bowel sounds present. Extremities: Reveal 1+ peripheral edema. LABORATORY AND DIAGNOSTIC DATA: White blood count 4.9, hemoglobin 10.4, platelet count 43,000. Sodium 125, potassium 5.1, chloride 87, bicarbonate 17, BUN 138, creatinine 2.7. Arterial blood gas reveals a pH of 7.38, pCO2 of 32, pO2 of 94, with a lactate of 4.0. Chest x-ray reveals diffuse bilateral infiltrates, right greater than left, with probable bilateral effusions. IMPRESSION: A 74-year-old with: 1. Aspiration pneumonia. 2. Acute hypoxemic respiratory failure. 3. Acute renal failure with hyperuremia. 4. Cirrhosis with ascites. 5. Ongoing thrombocytopenia. 6. Protein-calorie malnutrition. 7. Mantle cell lymphoma with evidence of active disease in the abdomen. DISCUSSION: A 74-year-old with problems outlined above. The patient continues to do poorly. His prognosis is extremely poor. Compassionate extubation is being considered for later this afternoon. PLAN: 1. Continue current treatment regimen. 2. Agree with compassionate extubation. The patient's prognosis is extremely poor. TIME SPENT IN CRITICAL CARE MANAGEMENT: Greater than 30 minutes. cc: Jaron Sanches MD
--- NOTE | 2019-05-21 16:40 | DISCHARGE SUMMARY ---
ADMISSION DATE: 05/06/2019 DISCHARGE DATE: 05/17/2019 DISCHARGE DIAGNOSES: The patient unfortunately from the following diagnoses. 1. Acute respiratory failure on ventilator. 2. Community-acquired pneumonia. 3. Septic shock secondary to condition #2. 4. Gastrointestinal bleed. 5. Acute kidney injury. 6. Mantle cell lymphoma. 7. Pancytopenia. 8. Hyponatremia. 9. Diabetes mellitus type 2. 10. Nonalcoholic liver cirrhosis. 11. 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 CONSULTATIONS: 1. Dr. Sanches from Pulmonary. 2. Dr. Wili Luna from Hematology. 3. Dr. Jorje Hanley from Nephrology. PROCEDURES: 1. Chest x-ray done on admission showed pulmonary edema and/or pneumonia. 2. Abdominal ultrasound showed cirrhosis, ascites, and abdominal aortic aneurysm. HOSPITAL COURSE: This is a 74-year-old male who presented to the emergency department complaining of altered mental status. He had increased confusion, slurred speech, decreased p.o. intake. Apparently, he has been treated for non-Hodgkin lymphoma with diffuse stomach involvement, on radiation. He was admitted to the hospital. Unfortunately, his respiratory status started to get worse, so this patient was emergently intubated. We found out that he had pneumonia so he has been on broad-spectrum antibiotics. His renal function started to get worse and had been worse during the next 5 days after the patient was admitted, so creatinine continues to rise. After having a long conversation with the family and considering that during 10 days patient was not able to improve family decide to withdrawal of care and comfort care measures only and patient unfortunately on May 17 around 7 pm. cc: Clayton Griffin MD [facility]
== END 2019-05-17 19:00 | disposition expired | DRG 870 ==
LOC: SUPCPDRO → ED 12:12 → SUATTDRO 15:40 → 1N 15:40 → ICU 18:27 → 1N 05-17 15:31
PROVIDERS: ATTEND Internal Medicine